=== PATIENT | female | born 1980 | race Caucasian/White ===

== ENCOUNTER 2022-07-03 09:37 | Outpatient (REF) | payer OTHER, SELFPAY ==
--- NOTE | ~2022-07-03 | XR_ITS ---
EXAMINATION: XR CHEST CLINICAL INFORMATION: Shortness of breath COMPARISON: None TECHNIQUE: 2 views of the chest were obtained. FINDINGS: No significant abnormality is noted involving the heart, lungs, mediastinum, bony thorax or soft tissues. XR/XR chest 2V IMPRESSION: Normal examination.
--- NOTE | ~2022-07-03 | XR_ITS ---
EXAMINATION: XR lumbar spine 2-3V CLINICAL INFORMATION: Reason for Exam M54.50 - Low back pain, unspecified COMPARISON: None TECHNIQUE: 3 views of the lumbar spine FINDINGS: 5 nonrib-bearing lumbar-type vertebral bodies. Vertebral body heights are maintained. Alignment is maintained. Disc space heights are maintained. Paravertebral soft tissues are unremarkable. XR/XR lumbar spine 2-3V IMPRESSION: Unremarkable examination.
--- NOTE | ~2022-07-03 | XR_ITS ---
EXAMINATION: XR KNEE, LEFT CLINICAL INFORMATION: Left knee pain COMPARISON: None TECHNIQUE: Four views of the left knee. FINDINGS: Bones and soft tissues are normal. No fracture. Small suprapatellar effusion.. Alignment is anatomic. Joint spaces are well maintained. No abnormal soft tissue calcification. XR/XR knee LT 2V IMPRESSION: Small suprapatellar effusion.
[2022-07-03 11:04] LABS: MANUAL DIFF FLAG NO
[2022-07-03 11:12] LABS: Basophils Absolute Auto 0.1 X10*3/uL (0.0-0.2); Basophils Percent Auto 0.8 % (0-2); Eosinophils Absolute Auto 0.3 X10*3/uL (0.0-0.4); Eosinophils Percent Auto 4.5 % (0-4); Hematocrit 38.5 % (37.0-47.0); Hemoglobin 12.6 g/dl (12.0-16.0); Imm Gran Abs Auto 0.01 X10*3/uL (0.00-0.03); Imm Gran Pct Auto 0.2 % (0.0-0.4); Lymphocytes Absolute Auto 2.6 X10*3/uL (1.2-4.9); Lymphocytes Percent Auto 38.8 % (20-40); Mean Corpuscular HGB Conc 32.7 g/dl (31.0-35.0); Mean Corpuscular Hemoglobin 27.5 pg (27.0-33.0); Mean Corpuscular Volume 83.9 fL (80.0-98.0); Mean Platelet Volume 11.4 fL (9.4-12.3); Monocytes Absolute Auto 0.7 X10*3/uL (0.1-1.2); Neutrophils Percent Auto 44.7 % (45-73); Platelet Count 246 X10*3/uL (160-400); Red Blood Count 4.59 X10*6/uL (4.20-5.50); Red Cell Distribution Width 14.6 % (11.0-16.0); White Blood Count 6.6 X10*3/uL (4.8-10.8)
[2022-07-03 11:31] LABS: Alanine Aminotransferase 40 U/L (0-31); Albumin Level 4.4 g/dL (3.5-5.0); Alkaline Phosphatase 89 U/L (39-117); Anion Gap 13 (12-20); Aspartate Amino Transferase 25 U/L (5-31); Bilirubin Total 0.3 mg/dL (0.0-1.0); Blood Urea Nitrogen 13 mg/dL (9-16); Calcium 9.5 mg/dL (8.4-10.2); Carbon Dioxide 25 mmol/L (22-29); Chloride 105 mmol/L (96-108); Cholesterol 191 mg/dL; Estimated Glomerular Filt Rate > 60; Glucose Fasting 92 mg/dL (60-99); HDL Cholesterol 59 mg/dL; LDL Cholesterol Calculated 119 mg/dl; Potassium 4.3 mmol/L (3.3-5.1); Sodium 139 mmol/L (135-145); Total Protein 6.9 g/dL (6.5-8.0); Triglycerides 68 mg/dL
== END 2022-07-03 09:38 | disposition home or self-care (01) ==
LOC: HO.HMGCX 09:37
PROVIDERS: PCP Internal Medicine; Visit Provider Internal Medicine
DX: E66.09 Other obesity due to excess calories (principal); M25.562 Pain in left knee; M54.50 Low back pain, unspecified; R06.02 Shortness of breath; Z76.89 Persons encountering health services in other specified circumstances
CPT/HCPCS: 36415; 71046; 72100; 73560; 80053; 80061; 84443; 85025

== ENCOUNTER 2022-10-09 07:30 | Outpatient (REF) | payer OTHER, SELFPAY ==
--- NOTE | ~2022-10-09 | XR_ITS ---
EXAMINATION: XR KNEE AP STANDING CLINICAL INFORMATION: Left knee pain COMPARISON: 07/03/2022 TECHNIQUE: AP bilateral standing view of the knees and sunrise view of the left knee where obtained. FINDINGS: Bones and soft tissues are normal. No fracture or joint effusion. Alignment is anatomic. Joint spaces are well maintained. No abnormal soft tissue calcification. XR/XR knee LT 1V IMPRESSION: Normal knees.
--- NOTE | ~2022-10-09 | XR_ITS ---
EXAMINATION: XR KNEE AP STANDING CLINICAL INFORMATION: Left knee pain COMPARISON: 07/03/2022 TECHNIQUE: AP bilateral standing view of the knees and sunrise view of the left knee where obtained. FINDINGS: Bones and soft tissues are normal. No fracture or joint effusion. Alignment is anatomic. Joint spaces are well maintained. No abnormal soft tissue calcification. XR/XR knee standing BI IMPRESSION: Normal knees.
== END 2022-10-09 07:31 | disposition home or self-care (01) ==
LOC: HO.HOSX 07:30
PROVIDERS: Visit Provider Physician Assistant
DX: M25.562 Pain in left knee (principal); M54.16 Radiculopathy, lumbar region
CPT/HCPCS: 73560; 73565; 99202

== ENCOUNTER 2022-11-28 09:31 | Outpatient (AMB) | payer OTHER, SELFPAY ==
[2022-11-28 09:33] VITALS: BP 116/68; BMI 41.6
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
== END 2022-11-28 10:42 | disposition home or self-care (01) ==
LOC: HO.HWS 09:31
PROVIDERS: PCP Internal Medicine; Visit Provider Advanced Practice Midwife
DX: Z01.419 Encounter for gynecological examination (general) (routine) without abnormal findings (principal); E66.09 Other obesity due to excess calories; Z11.3 Encounter for screening for infections with a predominantly sexual mode of transmission; Z86.32 Personal history of gestational diabetes; B37.49 Other urogenital candidiasis; Z90.79 Acquired absence of other genital organ(s); Z12.39 Encounter for other screening for malignant neoplasm of breast
CPT/HCPCS: 99386

== ENCOUNTER 2022-11-28 09:31 | Outpatient (REF) | payer OTHER, SELFPAY ==
[2022-11-29 01:44] LABS: CT PCR NOT DETECTED (Not Detect.); NG PCR NOT DETECTED (Not Detect.)
[2022-11-29 14:53] LABS: BV Int Neg Control Negative (Negative); BV Int Pos Control Positive (Positive)
[2022-12-04 21:14] LABS: HPV mRNA E6/E7 rflx Not Detected (Not Detected)
== END 2022-11-28 09:32 | disposition home or self-care (01) ==
LOC: HO.LNP 09:31
PROVIDERS: PCP Internal Medicine; Visit Provider Advanced Practice Midwife
DX: Z01.419 Encounter for gynecological examination (general) (routine) without abnormal findings (principal); Z11.51 Encounter for screening for human papillomavirus (HPV); B37.49 Other urogenital candidiasis; Z90.79 Acquired absence of other genital organ(s)
CPT/HCPCS: 0353U; 87480; 87510; 87624; 87660; 88142

== ENCOUNTER → 2022-12-26 12:30 | Outpatient (BNV) | payer OTHER, SELFPAY | PROVIDERS: PCP Internal Medicine; Visit Provider Radiology Diagnostic Radiology | DX: Z12.31 Encounter for screening mammogram for malignant neoplasm of breast (principal) | CPT/HCPCS: 77063; 77067 ==

== ENCOUNTER 2022-12-26 12:35 | Outpatient (REF) | payer OTHER, SELFPAY ==
--- NOTE | ~2022-12-26 | MM_ITS ---
EXAMINATION: MM SCREENING DIGITAL BREAST TOMOSYNTHESIS, BILATERAL CLINICAL INFORMATION: Screening. Asymptomatic. Remote history of benign excisional biopsy left breast. COMPARISON: Mammography: None. Baseline exam. TECHNIQUE: Digital breast tomosynthesis is performed in both the craniocaudal and mediolateral oblique views along with computer-aided detection (CAD). Synthesized 2D images are generated from the tomosynthesis. FINDINGS: There are scattered areas of fibroglandular density (ACR BI-RADS breast composition Category b). There are a few punctate skin calcifications in the LEFT breast medially. There is an associated skin lesion in the far medial inferior left breast. There is a focal asymmetric density in the upper outer RIGHT breast, posterior one third, for which diagnostic views recommended. In addition, there is a group of clustered nodules in the far medial inferior RIGHT breast, posterior one third, most likely lymph nodes, which require diagnostic views, with scheduled ultrasound. There are no suspicious findings in the LEFT breast. MM/MM tomosynthesis screening BI IMPRESSION: 1. Focal asymmetric density upper outer right breast, posterior one third, for which 3-D spot compression views are recommended in the CC and MLO projections, as well as a full-field 90 degree 3-D mediolateral view. 2. Grouped oval nodules in the far medial posterior right breast, likely lymph nodes, for which additional 3-D spot compression views are recommended in the CC and MLO projections. 3. There are no suspicious findings in the left breast. ASSESSMENT: BI-RADS BI-RADS 0 - Incomplete: Needs additional Imaging. RECOMMENDATION: 1. Additional views of the right breast. 2. Targeted ultrasound if warranted after review of the additional views. 3. Radiology department staff will contact the patient for additional imaging. Additional Imaging required This examination should not preclude the clinical evaluation of a suspicious palpable abnormality.
== END 2022-12-26 12:36 | disposition home or self-care (01) ==
LOC: HO.MAMMO 12:35
PROVIDERS: PCP Internal Medicine; Visit Provider Advanced Practice Midwife
DX: Z12.31 Encounter for screening mammogram for malignant neoplasm of breast (principal)
CPT/HCPCS: 77063; 77067

== ENCOUNTER 2023-01-17 12:28 | Outpatient (REF) | payer OTHER, SELFPAY ==
--- NOTE | ~2023-01-17 | MM_ITS ---
EXAMINATION: MM DIAGNOSTIC DIGITAL BREAST TOMOSYNTHESIS, RIGHT US BREAST LIMITED, RIGHT MAMMOGRAPHY: CLINICAL INFORMATION: Follow-up one view asymmetry seen superior right MLO view only with no CC correlate on screening exam. Follow-up cluster of circumscribed nodules, possibly lymph nodes, and medial inferior right breast. COMPARISON: Mammography: Baseline screening mammography 12/26/2022. TECHNIQUE: Digital right breast tomosynthesis is performed in right full Field digital 3-D mediolateral view, 3-D full-field digital mediolateral view, and 3-D spot compression right CC and MLO views, along with computer-aided detection (CAD). Synthesized 2D images are generated from the tomosynthesis. FINDINGS: There are scattered areas of fibroglandular density (ACR BI-RADS breast composition Category b). The 1 view asymmetry in the superior right breast at the approximate 10:00 axis appears to possibly persist on the right MLO and ML views, however does not definitively persist on spot compression views. There is no correlate in the CC projections. This will be evaluated with ultrasound. The 3 grouped oval masses in the inferomedial right breast persist on spot compression views, and will be a evaluated with subsequent ultrasound as below. No additional suspicious findings. ULTRASOUND: CLINICAL INFORMATION: Evaluate regions right breast as discussed above. COMPARISON: None TECHNIQUE: Targeted sonographic evaluation was performed using a high frequency linear transducer. Attention was paid to the right upper outer quadrant, and lower inner quadrant. Selected archived documentation. FINDINGS: RIGHT BREAST: There is no ultrasonographic abnormality in the upper outer quadrant of the right breast to correlate with the mammographic focus of concern. In the approximate 4:00 axis of the right breast, 9 cm from the nipple, there are 2 distinct areas of clustered cysts which correlate with the findings on mammography, the largest clustered cyst measuring approximately 5 mm in diameter. These are benign. No further follow-up recommended. MM/MM tomosynthesis added views R IMPRESSION: No findings suspicious for malignancy in the right breast. Benign clusters of cysts seen in the 4:00 axis, 9 cm from the nipple. These are benign. 1 view asymmetry right breast MLO view has no ultrasonographic correlate, and is questionably present on spot compression views. Follow-up in one year recommended when the patient is due for next screening bilateral mammography to include standard views. OVERALL ASSESSMENT: Mammography: BI-RADS 3 - Probably benign finding(s) - 12 month follow-up suggested Ultrasound: BI-RADS 3 - Probably benign finding(s) - 12 month follow-up suggested RECOMMENDATION: 12 month diagnostic follow up This patient's information was entered into a reminder system with a target due date for their next mammogram.
== END 2023-01-17 12:29 | disposition home or self-care (01) ==
LOC: HO.MAMMO 12:28
PROVIDERS: PCP Internal Medicine; Visit Provider Advanced Practice Midwife
DX: N64.89 Other specified disorders of breast (principal)
CPT/HCPCS: 76642; 77061; 77065

== ENCOUNTER → 2023-01-17 13:00 | Outpatient (BNV) | payer OTHER, SELFPAY | PROVIDERS: PCP Internal Medicine; Visit Provider Radiology Diagnostic Radiology | DX: N60.01 Solitary cyst of right breast (principal) | CPT/HCPCS: 76642; 77065 ==

== ENCOUNTER → 2023-08-05 09:31 | Outpatient (BNVA) | payer OTHER, SELFPAY | PROVIDERS: PCP Internal Medicine; Visit Provider Surgery ==

== ENCOUNTER 2023-09-20 09:09 | Outpatient (AMB) | payer OTHER, SELFPAY ==
--- NOTE | 2023-09-20 10:11 | MHC.OFFVISWM ---
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 Allergies Penicillins [PENICILLINS] Allergy (Unknown, Verified 09/20/23 10:11) BLACKED OUT Medication List - Last Reconciled 09/20/23 by Faizan Farfan MD albuterol sulfate 90 mcg/actuation (Ventolin HFA) 1 inh inhalation QID PRN mometasone-formoterol 200-5 mcg/actuation (Dulera) 2 puffs inhalation BID 30 days HPI HPI 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: Details: Start time: 10.07am, End time: 10.44am ?I spent 32 minutes speaking with the patient on the phone plus an additional 5 minutes reviewing and updating records for a total of 37 minutes HPI Comments Details: Previous weight loss efforts: exercise and self diets Wakes up: 6am, Sleeps: 9pm Breakfast: skips Lunch: 12pm (sandwich) Dinner: 5.30pm (chicken, pork chops, burgers, fish) Snacks: 10-11am (sandwich, chips), 7pm (chocolate rolls, chips) Exercise: none Fluids: Coffee one cup/day (sugar and cream), tea: none, soda/juice/ETOH: none PFSH Medical History (Updated 09/20/23 @ 10:17 by Faizan Farfan MD) Knee pain Back pain Asthma GERD (gastroesophageal reflux disease) Morbid obesity History of seizure Surgical History (Updated 09/20/23 @ 10:17 by Faizan Farfan MD) History of tonsillectomy and adenoidectomy Hx of bilateral salpingectomy Family History Maternal Grandfather Brain cancer Lung cancer Maternal Grandmother Lung cancer Social History (Updated 08/05/23 @ 10:01 by Diana Lizarraga CMA) Housing: House Alcohol intake: current Alcohol intake frequency: holidays/special occasions only Patient Tobacco Use Status: Former Tobacco user Quit Date: 1 YR AGO Cigarette Packs Per Day: 1 Cigarettes Per Day: 20 e-Cigarette/Vaping Use: Never Used service: No Current occupational status: unemployed Cognitive needs: No Hearing needs: No Vision needs: No Telehealth Telehealth Telehealth Platform: Telephone Location of provider rendering services: practice address Location of patient: address on file Patient Identification confirmed using: Name, : Yes Telehealth method: voice only Patient verbally consented to treatment: Yes Patient verbally consented to billing insurance company: Yes Patient informed of any privacy concerns related to visit: Yes Minutes spent on Phone/Video with Pt.: 37 Assessment & Plan Assessment & Plan (1) Morbid obesity: Code(s): E66.01 - Morbid (severe) obesity due to excess calories Category: Medical Plan: 1.? Plan for lap sleeve gastrectomy. If diaphragmatic or ventral hernias are present at time of surgery, these will be repaired laparoscopically as well. Risks and complications were discussed in detail including possible conversion to an open procedure, anastomotic leak, bleeding requiring transfusion, small bowel obstruction, , DVT and pulmonary embolism, cardiac, or pulmonary complications, as retirement complications such as anastomotic ulcer, insufficient weight loss and vitamin deficiencies. I emphasized the importance of close follow-up, adherence to instructions and good communication. 2. You will receive a link of our software joe to generate an individualized nutritional and exercise plan specific for you. Please send me a screenshot of the plans you will generate Meal to include lean meat (beef, fish, pork, turkey, chicken), or cymro yogurt, or egg whites, or beans with a salad with olive oil and fruits (berries, pears, apples, kiwi). Avoid salt, breads, potatoes, rice, pasta, desserts. ?3. If you choose shakes, each shake would be drunk slowly, like coffee in a period of 2 hours. ?4. If you choose bars, cut each bar in 4 pieces and eat each piece in 30min ?to make each bar last 2 hours. ?5. I emphasized the importance of measuring accurately the food portion and measure it when serving the food in plate ?6. The meal portions include a specific number of forks of meat and salad. You always eat the meat portion but you can replace up to half of salad/vegetables portion with rice, potatoes or pasta, or a fruit ?if you like. The less you do it the better weight loss will be. ?7. One full-size fork is what it can be scooped on the fork without falling aside and not what can be bit with the fork. Use regular forks like those you find in a typical restaurant. ?8.? Please send me weight measurements as soon as possible and then once a week. Always include your diet and exercise plan. 9. The best choice would be to purchase a stationary bike, elliptical or treadmill at home that can track calories. Let me know if you do so I can give you an exercise plan. ?10.?It is important of avoiding and for at least 18 months postoperatively and has been discussed at the infosession. ?11. Goal is to lose at least 1.5-2lbs per week ?12. Goal to lose 10% of your weight before surgery, which is about 26lbs. Ultimate weight goal: 238lbs before surgery 13. Please follow the diet plan exactly without any change. If you don't like something about the plan or you feel hungry you need to communicate with me so I can help you revise the plan. You should not change the plan yourself. Orders: Orders Hemoglobin A1c Today E66.01 - Morbid (severe) obesity due to excess calories, J45.909 - Unspecified asthma, uncomplicated, K21.9 - Gastro-esophageal reflux disease without esophagitis Complete Blood Count Auto Diff Today E66.01 - Morbid (severe) obesity due to excess calories, J45.909 - Unspecified asthma, uncomplicated, K21.9 - Gastro-esophageal reflux disease without esophagitis Lipid Panel Today E66.01 - Morbid (severe) obesity due to excess calories, J45.909 - Unspecified asthma, uncomplicated, K21.9 - Gastro-esophageal reflux disease without esophagitis IRON PROFILE Today E66.01 - Morbid (severe) obesity due to excess calories, J45.909 - Unspecified asthma, uncomplicated, K21.9 - Gastro-esophageal reflux disease without esophagitis Zinc Today E66.01 - Morbid (severe) obesity due to excess calories, J45.909 - Unspecified asthma, uncomplicated, K21.9 - Gastro-esophageal reflux disease without esophagitis Vitamin B1 Today E66.01 - Morbid (severe) obesity due to excess calories, J45.909 - Unspecified asthma, uncomplicated, K21.9 - Gastro-esophageal reflux disease without esophagitis Vitamin A Today E66.01 - Morbid (severe) obesity due to excess calories, J45.909 - Unspecified asthma, uncomplicated, K21.9 - Gastro-esophageal reflux disease without esophagitis US abdomen comp w elastography Today E66.01 - Morbid (severe) obesity due to excess calories, J45.909 - Unspecified asthma, uncomplicated, K21.9 - Gastro-esophageal reflux disease without esophagitis FL upper GI w air Today E66.01 - Morbid (severe) obesity due to excess calories, J45.909 - Unspecified asthma, uncomplicated, K21.9 - Gastro-esophageal reflux disease without esophagitis Insulin Today E66.01 - Morbid (severe) obesity due to excess calories, J45.909 - Unspecified asthma, uncomplicated, K21.9 - Gastro-esophageal reflux disease without esophagitis H Pylori Breath Test Today E66.01 - Morbid (severe) obesity due to excess calories, J45.909 - Unspecified asthma, uncomplicated, K21.9 - Gastro-esophageal reflux disease without esophagitis Comprehensive Met. Panel Today E66.01 - Morbid (severe) obesity due to excess calories, J45.909 - Unspecified asthma, uncomplicated, K21.9 - Gastro-esophageal reflux disease without esophagitis Vitamin B12 and Folate Today E66.01 - Morbid (severe) obesity due to excess calories, J45.909 - Unspecified asthma, uncomplicated, K21.9 - Gastro-esophageal reflux disease without esophagitis C Reactive Protein Today E66.01 - Morbid (severe) obesity due to excess calories, J45.909 - Unspecified asthma, uncomplicated, K21.9 - Gastro-esophageal reflux disease without esophagitis TSH reflex Free T4 Today E66.01 - Morbid (severe) obesity due to excess calories, J45.909 - Unspecified asthma, uncomplicated, K21.9 - Gastro-esophageal reflux disease without esophagitis Ferritin Today E66.01 - Morbid (severe) obesity due to excess calories, J45.909 - Unspecified asthma, uncomplicated, K21.9 - Gastro-esophageal reflux disease without esophagitis Vitamin D 25-OH Total Today E66.01 - Morbid (severe) obesity due to excess calories, J45.909 - Unspecified asthma, uncomplicated, K21.9 - Gastro-esophageal reflux disease without esophagitis XR chest 2V Today E66.01 - Morbid (severe) obesity due to excess calories, J45.909 - Unspecified asthma, uncomplicated, K21.9 - Gastro-esophageal reflux disease without esophagitis ECG 12 lead EKG Today E66.01 - Morbid (severe) obesity due to excess calories, J45.909 - Unspecified asthma, uncomplicated, K21.9 - Gastro-esophageal reflux disease without esophagitis Referrals Behavioral Health Referral E66.01 - Morbid (severe) obesity due to excess calories, J45.909 - Unspecified asthma, uncomplicated, K21.9 - Gastro-esophageal reflux disease without esophagitis Nutrition/Dietitian Referral E66.01 - Morbid (severe) obesity due to excess calories, J45.909 - Unspecified asthma, uncomplicated, K21.9 - Gastro-esophageal reflux disease without esophagitis
[2023-09-20 10:22] VITALS: BMI 43.9
== END 2023-09-20 10:45 | disposition home or self-care (01) ==
LOC: HO.HBS 09:09
PROVIDERS: PCP Internal Medicine; Visit Provider Surgery
DX: E66.01 Morbid (severe) obesity due to excess calories (principal); Z68.41 Body mass index [BMI] 40.0-44.9, adult
CPT/HCPCS: 99203

== ENCOUNTER → 2023-09-20 09:09 | Outpatient (BNVA) | payer OTHER, SELFPAY | PROVIDERS: PCP Internal Medicine; Visit Provider Surgery ==

== ENCOUNTER 2023-09-24 09:43 | Outpatient (REF) | payer OTHER, SELFPAY ==
--- NOTE | ~2023-09-24 | XR_ITS ---
EXAMINATION: XR CHEST CLINICAL INFORMATION: Morbid (severe) obesity due to excess calories, preop. COMPARISON: 07/03/2022 TECHNIQUE: 2 views of the chest were obtained. FINDINGS: There is no gross pneumothorax. Heart size is normal. Increased mild streaky opacities at the left lung base may represent atelectasis, although an inflammatory/infectious process should also be considered in the appropriate clinical setting. No gross pleural effusion. Mild dextroscoliosis of the thoracolumbar spine. XR/XR chest 2V IMPRESSION: Increased mild streaky opacities at the left lung base may represent atelectasis, although an inflammatory/infectious process should also be considered in the appropriate clinical setting.
--- NOTE | 2023-09-24 09:54 | ECG_ITS ---
Test Reason : OBESITY Blood Pressure : / mmHG Vent. Rate : 058 BPM Atrial Rate : 058 BPM P-R Int : 158 ms QRS Dur : 082 ms QT Int : 432 ms P-R-T Axes : 021 047 001 degrees QTc Int : 424 ms Sinus bradycardia Otherwise normal ECG No previous ECGs available Referred By: Faizan Farfan Electronically Signed By:AGGIE HANNON MD
[2023-09-24 10:18] LABS: MANUAL DIFF FLAG NO
[2023-09-24 10:50] LABS: Basophils Percent Auto 0.6 % (0-2); Eosinophils Absolute Auto 0.1 X10*3/uL (0.0-0.4); Eosinophils Percent Auto 1.3 % (0-4); Hematocrit 35.8 % (37.0-47.0); Hemoglobin 11.5 g/dl (12.0-16.0); Imm Gran Abs Auto 0.01 X10*3/uL (0.00-0.03); Imm Gran Pct Auto 0.2 % (0.0-0.4); Lymphocytes Absolute Auto 1.4 X10*3/uL (1.2-4.9); Lymphocytes Percent Auto 30.4 % (20-40); Mean Corpuscular HGB Conc 32.1 g/dl (31.0-35.0); Mean Corpuscular Hemoglobin 26.6 pg (27.0-33.0); Mean Corpuscular Volume 82.7 fL (80.0-98.0); Mean Platelet Volume 12.4 fL (9.4-12.3); Monocytes Absolute Auto 0.5 X10*3/uL (0.1-1.2); Monocytes Percent Auto 11.4 % (2-11); Neutrophils Absolute Auto 2.7 x10*3/uL (2.0-8.3); Neutrophils Percent Auto 56.1 % (45-73); Platelet Count 201 X10*3/uL (160-400); Red Blood Count 4.33 X10*6/uL (4.20-5.50); Red Cell Distribution Width 14.2 % (11.0-16.0); White Blood Count 4.7 X10*3/uL (4.8-10.8)
[2023-09-24 10:58] LABS: Estimated Average Glucose 111 mg/dL; Hemoglobin A1c % 5.5 % (<6.0)
[2023-09-24 11:56] LABS: Alanine Aminotransferase 37 U/L (0-31); Albumin Level 4.3 g/dL (3.5-5.0); Alkaline Phosphatase 79 U/L (39-117); Anion Gap 15 (12-20); Aspartate Amino Transferase 32 U/L (5-31); Bilirubin Total 0.5 mg/dL (0.0-1.0); Blood Urea Nitrogen 13 mg/dL (9-16); C Reactive Protein 0.52 mg/dL (< or = 0.50); Calcium 9.7 mg/dL (8.4-10.2); Carbon Dioxide 23 mmol/L (22-29); Chloride 109 mmol/L (96-108); Cholesterol 153 mg/dL (<200); Estimated Glomerular Filt Rate > 60; Glucose Random 88 mg/dL (60-115); HDL Cholesterol 49 mg/dL (>40); Iron 25 mcg/dL (30-160); LDL Cholesterol Calculated 91 mg/dL (<100); Percent Iron Saturation 7 % (15-50); Sodium 143 mmol/L (135-145); Total Iron Binding Capacity 351 mcg/dL (228-428); Total Protein 7.2 g/dL (6.5-8.0); Triglycerides 65 mg/dL (<150); Unsaturated Iron Binding 326 ug/dL
[2023-09-24 12:00] LABS: Folate 10.5 ng/mL (> or = 4.0); Vitamin B12 729 pg/mL (200-900)
[2023-09-24 12:02] LABS: Ferritin 7 ng/mL (10-250); Insulin 6 uU/mL (2-29); TSH reflex Free T4 0.83 uIU/mL (0.32-4.0); Vitamin D 25-OH Total 16.4 ng/mL (>30)
[2023-09-26 23:48] LABS: Zinc 79 mcg/dL (60-130)
[2023-09-28 00:58] LABS: Vitamin A 26 mcg/dL (38-98)
[2023-09-29 15:04] LABS: Vitamin B1 6 nmol/L (8-30)
== END 2023-09-24 09:44 | disposition home or self-care (01) ==
LOC: HO.XRAY 09:43
PROVIDERS: PCP Internal Medicine; Visit Provider Surgery
DX: E66.01 Morbid (severe) obesity due to excess calories (principal); K21.9 Gastro-esophageal reflux disease without esophagitis; J45.909 Unspecified asthma, uncomplicated
CPT/HCPCS: 36415; 71046; 80053; 80061; 82306; 82607; 82728; 82746; 83036; 83525; 83540; 84425; 84443; 84590; 84630; 85025; 86140; 93005

== ENCOUNTER → 2023-09-24 09:54 | Outpatient (BNV) | payer OTHER, SELFPAY | PROVIDERS: PCP Internal Medicine; Visit Provider Internal Medicine Cardiovascular Disease | DX: R00.1 Bradycardia, unspecified (principal) | CPT/HCPCS: 93010 ==

== ENCOUNTER 2023-10-03 08:38 | Outpatient (REF) | payer OTHER, SELFPAY ==
--- NOTE | ~2023-10-03 | US_ITS ---
EXAMINATION: US COMPLETE ABDOMEN WITH LIVER ELASTOGRAPHY CLINICAL INFORMATION: Morbid obesity. COMPARISON: None available. TECHNIQUE: Real-time imaging of the abdominal viscera. Noninvasive ultrasound liver fibrosis assessment is performed using Raphael ElastPQ point quantification shear wave elastography (2D-SWE) with a C5-2 MHz transducer. Multiple elastography samples are obtained. FINDINGS: PANCREAS: Normal. The visualized pancreatic head and body are normal in appearance. The remainder of the pancreas is obscured from visualization by the overlying bowel gas. ABDOMINAL AORTA: The proximal, middle, and distal aortic segments are normal in caliber. INFERIOR VENA CAVA: Visualized portions are normal. LIVER: The liver demonstrates normal size, contour and very mildly increased echogenicity. No focal lesion or intrahepatic biliary duct dilatation. The right lobe measures 15.3 cm in length. The left lobe measures 12.9 cm in length. Portal flow is towards the liver (hepatopetal). Shear wave liver elastography median stiffness is 0.97 m/s (reference: normal median stiffness is 1.3 m/s or less). IQR/median stiffness to assess sampling precision is 0.31 (reference: good quality data set is IQR/median stiffness of 0.15 or less). GALLBLADDER: Normal. The gallbladder is physiologically distended without evidence of stones, sludge, polyps, wall thickening or pericholecystic fluid. COMMON BILE DUCT: Normal in caliber measuring 0.3 cm in diameter. RIGHT KIDNEY: Normal. No hydronephrosis. No renal calculi or focal parenchymal lesions. The kidney measures 12.5 cm in maximum dimension. LEFT KIDNEY: Normal. No hydronephrosis. No renal calculi or focal parenchymal lesions. The kidney measures 11.8 cm in maximum dimension. SPLEEN: Normal. The spleen measures 12.5 cm in maximum dimension. FREE FLUID: None. US/US abdomen comp w elastography IMPRESSION: 1. There is very mild generalized increase in hepatic echotexture, consistent with fatty infiltration or hepatocellular disease. Please correlate clinically. No focal hepatic mass or intrahepatic biliary dilatation is seen. 2. Liver elastography: Although measurements suggest a high probability of normal liver stiffness, there is statistical variability of the sampling which decreases accuracy. REFERENCE: Society of Radiologists in Ultrasound Liver Stiffness Thresholds (2020): LIVER STIFFNESS THRESHOLDS: *Liver Stiffness equal or less than 1.3 m/s: High probability of being normal. *Liver Stiffness less than 1.7 m/s: In the absence of other known clinical signs, rules out compensated advanced chronic liver disease. *Liver Stiffness 1.7-2.1 m/s: Suggestive of compensated advanced chronic liver disease but need further test for confirmation. *Liver Stiffness over 2.1 m/s: Rules in compensated advanced chronic liver disease. *Liver Stiffness over 2.4 m/s: Suggestive of clinically significant portal hypertension. QUALITY OF DATA SET: *IQR/Median value equal or less than 0.15 implies a quality data set. *IQR/Median value over 0.15 implies a poor quality data set. SIGNIFICANT CHANGE FROM PRIOR EXAM: Significant change if liver stiffness measurement is 10% or greater from prior exam. OTHER CONSIDERATIONS: The stage of liver fibrosis may be overestimated in the setting of acute hepatitis, liver inflammation, elevated liver function tests, hepatic vascular congestion, obstructive cholestasis, non-fasting state, and infiltrative diseases such as amyloidosis and lymphoma. In some patients with NAFLD, the liver stiffness thresholds for compensated advanced chronic liver disease may be lower. In causes other than viral hepatitis and NAFLD, liver stiffness thresholds are not well established.
== END 2023-10-03 08:39 | disposition home or self-care (01) ==
LOC: HO.US 08:38
PROVIDERS: PCP Internal Medicine; Visit Provider Surgery
DX: E66.01 Morbid (severe) obesity due to excess calories (principal); K21.9 Gastro-esophageal reflux disease without esophagitis; J45.909 Unspecified asthma, uncomplicated
CPT/HCPCS: 76700; 76981

== ENCOUNTER 2023-10-08 09:37 | Outpatient (AMB) | payer OTHER, SELFPAY ==
--- NOTE | 2023-10-08 09:21 | MHC.WMTHER ---
Intake Intake Visit Reasons: (TV) BH Intake Allergies Penicillins [PENICILLINS] Allergy (Unknown, Verified 09/20/23 10:11) BLACKED OUT [facility] Medical History (Updated 10/08/23 @ 09:45 by Gina Cao) Knee pain Back pain Asthma GERD (gastroesophageal reflux disease) Morbid obesity History of seizure Surgical History (Updated 09/20/23 @ 10:17 by Faizan Farfan MD) History of tonsillectomy and adenoidectomy Hx of bilateral salpingectomy Family History Maternal Grandfather Brain cancer Lung cancer Maternal Grandmother Lung cancer Social History (Updated 08/05/23 @ 10:01 by Diana Lizarraga [facility]) Housing: House Alcohol intake: current Alcohol intake frequency: holidays/special occasions only Patient Tobacco Use Status: Former Tobacco user Cigarette Packs Per Day: 1 Cigarettes Per Day: 20 e-Cigarette/Vaping Use: Never Used service: No Current occupational status: unemployed Cognitive needs: No Hearing needs: No Vision needs: No Behavioral Health Assessment Weight Management Therapy Therapy Notes Details Patient is looking to have weight loss surgery to help improve her health and quality of life. She reported a history of depression. Patient was in therapy in the past but not currently. Also previous hospital admission to [facility] in her 20's due to someone claiming she was a danger to herself. She denied a history of any drug or alcohol abuse. Presenting Concerns Referral Source provider Reason for referral weight loss surgery evaluation Precipitating Event obesity Living Situation Current Living Situation Rent At risk of losing current housing? No Satisfied with current living situation? Yes Comments Pt lives with her four sons ages 17, 16, 11, and 4 years old Food/Weight/Diet Expectations of change weight loss and maintenance History/Relationship with food Pt stated that she will stop eating when stressed, under eats more often than over eats. History/Relationship with weight Pt stated that she is at her heaviest weight. Her baseline is usually 165lbs. She has had 7 children, Her last she had many issues with the baby and then last year she quit smoking which caused more weight gain. Social History Family history and relationship Pt has seven children. 4 of them live with her. Her two adult children don't speak to her and her 13 year old daughter lives with her grandmother and wants nothing to do with her. 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 Cultural/Ethnic information Legal Involvement and History Current or historical involvement with the legal system? small claims court, also some guardianship issues with two of her children. Education Preferred learning style Auditory, Verbal, Written, Learn by doing and Visual Currently enrolled in educational program? No Interested in further educational program? No Employment Employment Status Unemployed Wants help to find employment? No Financial Situation Describe current financial situation Often struggles with finance Financial assistance? Food [place] and SSDI Service Service? No Mental Health and Addiction Treatment Current/Past substance abuse? No Current/Past addictive behavior concerns? No Medical and Physical Health Summary Physical exam in the last year? No Pain Screening Current pain? No Pain in the last few months? No Medications Is the patient compliant with medications? Yes Does the patient have [place] Guardian in place? Not applicable Does the patient use complimentary health approaches? No Trauma/Abuse History History of trauma? Yes Questionnaires PHQ-9 Over the last 2 weeks, how often have you been bothered by any of the following problems? 1. Little interest or pleasure in doing things: not at all 2. Feeling down, depressed, or hopeless: not at all 3. Trouble falling or staying asleep, or sleeping too much: more than half the days 4. Feeling tired or having little energy: more than half the days 5. Poor appetite or overeating: several days 6. Feeling bad about yourself - or that you are a failure or have let yourself or your family down: not at all 7. Trouble concentrating on things, such as reading the newspaper or watching television: not at all 8. Moving or speaking so slowly that other people could have noticed. Or the opposite - being so fidgety or restless that you have been moving around a lot more than usual: not at all 9. Thoughts that you would be better off or of hurting yourself in some way: not at all Total score: 5 Source: Developed by Drs. Al Neil, Jane Engle, Aj Miles and colleagues, with an educational andreea from [employer]. Binge Eating Scale Group 1 A. I don't feel self-conscious about my wt. or body size when I'm with others. B. I feel concerned about how I look to others, but it normally does not make me fell disappointed with myself C. I do get self-conscious about my appearance and wt. which makes me feel disappointed in myself. D. I feel very self-conscious about my wt. and frequently I feel intense shame and disgust for myself. I try to avoid social contacts because of my self-consciousness. Response Group 1: A Group 2 A. I don't have any difficulty eating slowly in the proper manner. B. Although I seem to gobble down foods, I don't end up feeling stuffed because of eating to much. C. At times, I tend to eat quickly and then, I feel uncomfortably full afterwards. D. I have the habit of bolting down my food, without really chewing it. When this happens I usually feel uncomfortably stuffed because I've eaten to much. Response Group 2: A Group 3 A. I feel capable to control my eating urges when I want to. B. I feel like I have failed to control my eating more than the average person. C. I feel utterly helpless when it comes to feeling in control of my eating urges. D. Because I feel so helpless about controlling my eating I have become very desperate about trying to get control. Response Group 3: C Group 4 A. I don't have the habit of eating when I'm bored. B. I sometimes eat when I'm bored, but often I'm able to get busy and get my mind off food. C. I have a regular habit of eating when I'm bored, but occasionally, I can use some other activity to get my mind off eating. D. I have a strong habit of eating when I'm bored. Nothing seems to help me breath the habit. Response Group 4: B Group 5 A. I'm usually physically hungry when I eat something. B. Occasionally, I eat something on impulse even though I really am not hungry. C. I have the regular habit of eating foods, that I might not really enjoy, to satisfy a hungry feeling even though physically, I don't need the food. D. Although I'm not physically hungry, I get a hungry feeling in my mouth that only seems to be satisfied when I eat a food, like sandwich, that fills my mouth. Sometimes, when I eat the food to satisfy my mouth hunger, I then spit the food out so I won't gain weight. Response Group 5: C Group 6 A. I don't feel any guilt or self-hate after I overeat. B. After I overeat, occasionally I feel guilt or self-hate. C. Almost all the time I experience strong guilt or self-hate after I overeat. Response Group 6: B Group 7 A. I don't lose total control of my eating when dieting even after periods when I overeat. B. Sometimes when I eat a forbidden food on a diet, I feel like I blew it and eat even more. C. Frequently, I have the habit of saying to myself, I've blown it now, why not go all the way, when I overeat on a diet. When that happens I eat more. D. I have a regular habit of starting a strict diets for myself but I break the diets by going on an eating binge. My life seems to be either a feast or famine. Response Group 7: A Group 8 A. I rarely eat so much food that I feel uncomfortably stuffed afterwards. B. Usually about once a month, I each such a quantity of food, I end up feeling very stuffed. C. I have regular periods during the month when I eat large amounts of food, either at mealtime or at snacks. D. I eat so much food that I regularly feel quite uncomfortable after eating and sometimes a bit nauseous. Response Group 8: A Group 9 A. My level of calorie intake does not go up very high or go down very low on a regular basis. B. Sometimes after I overeat, I will try to reduce my caloric intake to almost nothing to compensate for the excess calories I've eaten. C. I have a regular habit of overeating during the night. It seems that my routine is not to be hungry in the morning but overeat in the evening. D. In my adult years, I have had week-long periods where I practically starve myself. This follows periods when I overeat. It seems I live a life of either feast or famine. Response Group 9: A Group 10 A. I usually am able to stop eating when I want to. I know when enough is enough. B. Every so often, I experience a compulsion to eat which I can't seem to control. C. Frequently, I experience strong urges to eat which I seem unable to control, but at other times I can control my eating urges. D. I feel incapable of controlling urges to eat. I have a fear of not being able to stop eating voluntarily. Response Group 10: A Group 11 A. I don't have any problem stopping eating when I feel full. B. I usually can stop eating when I feel full but occasionally overeat leaving me feeling uncomfortably stuffed. C. I have a problem stopping eating once I start and usually I feel uncomfortably stuffed after I eat a meal. D. Because I have a problem not being able to stop eating when I want, I sometimes have to induce vomiting to relieve my stuffed feeling. Response Group 11: B Group 12 A. I seem to eat just as much when I'm with others, Family social gatherings as when I'm by myself. B. Sometimes, when I'm with other persons, I don't eat as much as I want to eat because I'm self-conscious about my eating. C. Frequently, I eat only a small amount of food when others are present, because I'm very embarrassed about my eating. D. I feel so ashamed about overeating that I pick times to overeat when I know no one will see me. I feel like a closet eater. Response Group 12: C Group 13 A. I eat three meals a day with only an occasional between meal snack. B. I eat 3 meals a day, but I also normally snack between meals. C. When I am snacking heavily, I get in the habit of skipping regular meals. D. There are regular periods when I seem to be continually eating, with no planned meals. Response Group 13: A Group 14 A. I don't think much about trying to control unwanted eating urges. B. At least some of the time, I feel my thoughts are pre-occupied with trying to control my eating urges. C. I feel that frequently I spend much time thinking about how much I ate or about trying not to eat anymore. D. It seems to me that most of my waking hours are pre-occupied by thoughts about eating or not eating. I feel like I'm constantly struggling not to eat. Response Group 14: C Group 15 A. I don't think about food a great deal. B. I have strong craving for food but they last only for brief periods of time. C. I have days when I can't seem to think about anything else but food. D. Most of my days seem to be pre-occupied with thoughts about food. I feel like I live to eat. Response Group 15: C Group 16 A. I usually know whether or not I'm physically hungry. I take the right portion of food to satisfy me. B. Occasionally, I feel uncertain about knowing whether or not I'm physically hungry. A these times it's hard to know how much food I should take to satisfy me. C. Even though I might know how many calories I should eat, I don't have any idea what is a normal amount of food for me. Response Group 16: C Binge Eating Score: 15 Score less than 17 Minimal Risk Score between 18-26 Moderate Risk Score between 27-46 High Risk Assessment & Plan Assessment & Plan (1) Dysthymia: Code(s): F34.1 - Dysthymic disorder (2) Morbid obesity: Code(s): E66.01 - Morbid (severe) obesity due to excess calories Plan Patient has no supports per her report, struggling a bit and no mental health providers. She seems emotionally stable with some family stressors. She will be seen again. Coding Level of Care Code Tele y Diag Elizabeth ([id number]) Diagnoses Dysthymia F34.1 Morbid obesity E66.01 Time Spent (min) 30
== END 2023-10-08 09:49 | disposition home or self-care (01) ==
LOC: HO.HBST 09:38
PROVIDERS: PCP Internal Medicine; Visit Provider Counselor Mental Health
DX: F34.1 Dysthymic disorder (principal); E66.01 Morbid (severe) obesity due to excess calories
CPT/HCPCS: 90791

== ENCOUNTER → 2023-10-08 09:37 | Outpatient (BNVA) | payer OTHER, SELFPAY | PROVIDERS: PCP Internal Medicine; Visit Provider Counselor Mental Health ==

== ENCOUNTER 2023-10-16 10:00 | Outpatient (AMB) | payer OTHER, SELFPAY ==
--- NOTE | 2023-10-16 10:16 | A.OFFWM_ITS ---
Intake Intake Visit Reasons: (TV) BH F/U Allergies Penicillins [PENICILLINS] Allergy (Unknown, Verified 09/20/23 10:11) BLACKED OUT [facility] Medical History (Updated 10/08/23 @ 09:45 by Gina Cao) Knee pain Back pain Asthma GERD (gastroesophageal reflux disease) Morbid obesity History of seizure Surgical History (Updated 09/20/23 @ 10:17 by Faizan Farfan MD) History of tonsillectomy and adenoidectomy Hx of bilateral salpingectomy Family History Maternal Grandfather Brain cancer Lung cancer Maternal Grandmother Lung cancer Social History (Updated 08/05/23 @ 10:01 by Diana Lizarraga [facility]) Housing: House Alcohol intake: current Alcohol intake frequency: holidays/special occasions only Patient Tobacco Use Status: Former Tobacco user Cigarette Packs Per Day: 1 Cigarettes Per Day: 20 e-Cigarette/Vaping Use: Never Used service: No Current occupational status: unemployed Cognitive needs: No Hearing needs: No Vision needs: No Behavioral Health Assessment Weight Management Therapy Therapy Notes Details Patient is looking to have weight loss surgery to help improve her health and quality of life. She reported a history of depression. Patient was in therapy in the past but not currently. Also previous hospital admission to [facility] in her 20's due to someone claiming she was a danger to herself. She denied a history of any drug or alcohol abuse. Presenting Concerns Referral Source provider Reason for referral weight loss surgery evaluation Precipitating Event obesity Living Situation Current Living Situation Rent At risk of losing current housing? No Satisfied with current living situation? Yes Comments Pt lives with her four sons ages 17, 16, 11, and 4 years old Food/Weight/Diet Expectations of change weight loss and maintenance History/Relationship with food Pt stated that she will stop eating when stressed, under eats more often than over eats. History/Relationship with weight Pt stated that she is at her heaviest weight. Her baseline is usually 165lbs. She has had 7 children, Her last she had many issues with the baby and then last year she quit smoking which caused more weight gain. Social History Family history and relationship Pt has seven children. 4 of them live with her. Her two adult children don't speak to her and her 13 year old daughter lives with her grandmother and wants nothing to do with her. 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 Cultural/Ethnic information Legal Involvement and History Current or historical involvement with the legal system? small claims court, also some guardianship issues with two of her children. Education Preferred learning style Auditory, Verbal, Written, Learn by doing and Visual Currently enrolled in educational program? No Interested in further educational program? No Employment Employment Status Unemployed Wants help to find employment? No Financial Situation Describe current financial situation Often struggles with finance Financial assistance? Food [place] and SSDI Service Service? No Mental Health and Addiction Treatment Current/Past substance abuse? No Current/Past addictive behavior concerns? No Medical and Physical Health Summary Physical exam in the last year? No Pain Screening Current pain? No Pain in the last few months? No Medications Is the patient compliant with medications? Yes Does the patient have [place] Guardian in place? Not applicable Does the patient use complimentary health approaches? No Trauma/Abuse History History of trauma? Yes Assessment & Plan Assessment & Plan (1) Dysthymia: Code(s): F34.1 - Dysthymic disorder (2) Morbid obesity: Code(s): E66.01 - Morbid (severe) obesity due to excess calories Plan Patient has minimal supports and barriers to be being able to exercise. Also not hungry often so she just drinks water. She was agitated and frustrated during call today stating that she is doing everything she can but is not gong to push herself too much so to not get hurt. She was strongly encouraged to utilize program supports but stated that she has too much going on. She is cleared from behavioral health standpoint. Telehealth Telehealth Telehealth Platform: Telephone Location of provider rendering services: other Location of patient: other Patient Identification confirmed using: Name, : Yes Telehealth method: voice only Minutes spent on Phone/Video with Pt.: 20 Coding Level of Care Code Tele Psytx 30 mins ([id number]) Diagnoses Dysthymia F34.1 Morbid obesity E66.01 Time Spent (min) 20
== END 2023-10-16 10:31 | disposition home or self-care (01) ==
LOC: HO.HBST 10:14
PROVIDERS: PCP Internal Medicine; Visit Provider Counselor Mental Health
DX: F34.1 Dysthymic disorder (principal); E66.01 Morbid (severe) obesity due to excess calories
CPT/HCPCS: 90832

== ENCOUNTER → 2023-10-16 10:00 | Outpatient (BNVA) | payer OTHER, SELFPAY | PROVIDERS: PCP Internal Medicine; Visit Provider Counselor Mental Health ==

== ENCOUNTER 2023-10-23 10:27 | Day surgery (SDC) | payer OTHER, SELFPAY ==
[2023-10-18 16:02] VITALS: BMI 43.9
--- NOTE | 2023-10-21 12:33 | HO.ANESPROP2 ---
Documented by User: Isis Erazo NP 10/21/23 12:34 HPI - Anesthesia Eval Consult details Narrative: 43yo F for Upper Endoscopy PMFSH Active Problems Active Problems: All Active Problems Dysthymia (Acute) Vitamin B1 deficiency (Acute) Vitamin A deficiency (Acute) Vitamin D deficiency (Acute) Iron deficiency (Acute) Knee pain (Acute) Back pain (Acute) Asthma (Acute) GERD (gastroesophageal reflux disease) (Acute) Morbid obesity (Acute) Breast cancer screening (Acute) Amry infection of genital region (Acute) Hx of bilateral salpingectomy (Acute) Hx of gestational diabetes mellitus, not currently (Acute) Screen for sexually transmitted diseases (Acute) Cervical cancer screening (Acute) Lumbar radiculopathy (Acute) LFT elevation (Acute) Encounter for general adult medical examination with abnormal findings (Acute) Skin growth (Acute) Encounter for routine gynecological examination (Acute) Shortness of breath (Acute) Obesity due to excess calories (Acute) Encounter to establish care with new doctor (Acute) Lumbar pain (Acute) Knee pain, left (Acute) Upper respiratory tract infection (Acute) Past Medical History Medical History Knee pain Back pain Asthma GERD (gastroesophageal reflux disease) Morbid obesity History of seizure Family History Family History Maternal Grandfather Brain cancer Lung cancer Maternal Grandmother Lung cancer Surgical History Surgical History History of tonsillectomy and adenoidectomy Hx of bilateral salpingectomy Social History Social History Housing: House Alcohol intake: current Alcohol intake frequency: holidays/special occasions only Patient Tobacco Use Status: Former Tobacco user Cigarette Packs Per Day: 1 Cigarettes Per Day: 20 e-Cigarette/Vaping Use: Never Used Use of substances other than those prescribed or required for medical reasons: No Are you DNR?: No Advance Directives: No Advance Directives Information Provided: Yes service: No Current occupational status: unemployed Cognitive needs: No Hearing needs: No Vision needs: No Meds Allergies Allergy/AdvReac Type Severity Reaction Status Date / Time Penicillins [PENICILLINS] Allergy Unknown BLACKED OUT Verified 09/20/23 10:11 Exam Height,Weight and Vital Signs: Height 5 ft 5 in Weight 119.805 kg Assessment and Plan Assessment Anesthesia Assessment: Chart Reviewed Documented by User: Lazara Ndiaye MD 10/23/23 12:34 PMFSH Active Problems Active Problems: All Active Problems Dysthymia (Acute) Vitamin B1 deficiency (Acute) Vitamin A deficiency (Acute) Vitamin D deficiency (Acute) Iron deficiency (Acute) Knee pain (Acute) Back pain (Acute) Asthma (Acute) GERD (gastroesophageal reflux disease) (Acute) Morbid obesity (Acute) Breast cancer screening (Acute) Mary infection of genital region (Acute) Hx of bilateral salpingectomy (Acute) Hx of gestational diabetes mellitus, not currently (Acute) Screen for sexually transmitted diseases (Acute) Cervical cancer screening (Acute) Lumbar radiculopathy (Acute) LFT elevation (Acute) Encounter for general adult medical examination with abnormal findings (Acute) Skin growth (Acute) Encounter for routine gynecological examination (Acute) Shortness of breath (Acute) Obesity due to excess calories (Acute) Encounter to establish care with new doctor (Acute) Lumbar pain (Acute) Knee pain, left (Acute) Upper respiratory tract infection (Acute) Denies FAREED Past Medical History Medical History Knee pain Back pain Asthma GERD (gastroesophageal reflux disease) Morbid obesity History of seizure Family History Family History Maternal Grandfather Brain cancer Lung cancer Maternal Grandmother Lung cancer Family history of problems with anesthesia: Yes (Slow awakening in son) Surgical History Surgical History History of tonsillectomy and adenoidectomy Hx of bilateral salpingectomy History of Problems with Anesthesia: No Social History Social History Housing: House Alcohol intake: current Alcohol intake frequency: holidays/special occasions only Patient Tobacco Use Status: Former Tobacco user Cigarette Packs Per Day: 1 Cigarettes Per Day: 20 e-Cigarette/Vaping Use: Never Used Use of substances other than those prescribed or required for medical reasons: No Are you DNR?: No Advance Directives: No Advance Directives Information Provided: Yes service: No Current occupational status: unemployed Cognitive needs: No Hearing needs: No Vision needs: No Meds Allergies Allergy/AdvReac Type Severity Reaction Status Date / Time Penicillins [PENICILLINS] Allergy Unknown BLACKED OUT Verified 09/20/23 10:11 Exam Height,Weight and Vital Signs: Height 5 ft 5 in Weight 119.805 kg Vital Signs Temp Pulse Resp BP Pulse Ox O2 Del Method 10/23/23 11:50 97.0 F 66 16 129/68 96 Room Air Airway Mallampati Class: II TM Dist: >3cm Neck ROM: Full Denture: Upper Loose/Missing/Broken Teeth: Yes (Full denture top. Only few teeth present botto. Denies broken or loose teeth) Heart: RRR Lungs: CTAB Assessment and Plan Assessment Anesthesia Assessment: Anesthesia Plan Discussed and Chart Reviewed Final Anesthetic Review Family History of Problems with Anesthesia: Yes (Slow awakening in son) History of Problems with Anesthesia: No NPO: Yes ASA Class: III Final Preanesthetic Review: No Changes in Pt Med Stat, Meds/Allgs Chart Reviewed, Consent Obtained/Reviewed and Anes Risks/Benef Reviewed Patient Risk: Intermediate Procedure Risk: Low Assessment/Block/Sedation in SS: Assess/Block/Sedation-SS Anesthetic Plan Anesthetic Plan: GA and TIVA Disposition: Standard PACU
[2023-10-23 11:29] VITALS: BMI 41.6
[2023-10-23 11:50] VITALS: BP 129/68; PULSE 66; RESP 16; TEMP 36.1; O2SAT 96
--- NOTE | 2023-10-23 12:00 | MHC.SHP ---
Pre-Procedural Eval Section A - 24 Hr Update-Section A only Date of Service: 10/23/23 The patient is an INPATIENT: No The patient has been examined within 24 hours of the surgical procedure. The History & Physical has been completed within 30 days and I have reviewed it.: Yes Section B - Complete if H&P > 30 days Chief Complaint: Morbid (severe) obesity due to excess calories Details of Present Illness: GERD Relevant Family History (Specify if Yes): No Relevant Social History: None Present Medications: None Medical History: No relevant PMH History of Previous Operations: No relevant previous surgery Allergies: Allergies Allergy/AdvReac Type Severity Reaction Status Date / Time Penicillins [PENICILLINS] Allergy Unknown BLACKED OUT Verified 09/20/23 10:11 Review of Systems Sugical H&P ROS: Negative: Constitution, Cardiovascular, Respiratory, Neurological, Psychiatric, Hem-Onc, Allergic/Immunologic, Gastrointestinal, Genitourinary, Musculoskeletal, Integumentary, Endocrine and Eyes/Ears/Nose/Throat Exam Surgical H&P Exam: Normal: HEENT, Normal: Heart, Normal: Lungs, Normal: Extremities, Normal: Abdomen, Normal: Skin and Normal: Neurological Plan Diagnosis/Plan: Unchanged (EGD to assess etiology of GERD. Risks of bleeding and perforation were discussed with the patient and she is in agreement with the plan.) I have reviewed the history and physical and performed a pertinent physical examination on my patient. No changes have occurred unless specified. Time Spent With Patient Time: Total time managing care of this patient today ____ minutes.
--- NOTE | 2023-10-23 12:07 | PM.OP ---
Brief Operative Note Date of Service: 10/23/23 Pre-op diagnosis: GERD Post-op diagnosis: same Procedure: PROCEDURE DATE: 10/23/2023 PREOPERATIVE DIAGNOSIS: GERD POSTOPERATIVE DIAGNOSIS: ?Same as above. 1) small hiatal hernia, 2) distal gastritis, 3) esophagitis PROCEDURE: [id number]-[id number] with biopsies Surgeon: ?Yoni Farfan M.D.. Ph.D. Child Care Education Coordinator: None ? Anesthesia: IV sedation Estimated blood loss: ?Minimal FINDINGS AND PROCEDURE: ? OPERATIVE INDICATIONS: ?The patient is a 43 year old female known to me who is interested in bariatric surgery. The patient has GERD. Based on this information I recommended an upper endoscopy to evaluate the patient's symptoms. Risks and complications of the surgery were discussed with the patient in advance particularly the possibility of perforation or bleeding that may require surgical intervention. The patient understood the risks and was in agreement with the plan. ? PROCEDURE: After informed consent was obtained by the patient, the patient was ?transferred to the Operating Room and was placed in the supine position.? After successful induction of IV sedation, a mouth block was inserted and the patient was placed in the left lateral decubitus position. An upper endoscopy was performed next, the oropharynx and esophagus appeared within the normal limits. There was a 2cm hiatal hernia. The z-line was irregular with tongues of gastric mucosa protruding into the esophagus in 50% circumference.. Two biopsies were obtained from the distal esophagus 2-3 cm proximal to the GE junction and two additional biopsies from the GE junction. The stomach was entered and it appeared to be of normal size. There was mild gastritis at distal antrum. There was no stricture or ulcer. A biopsy was obtained from the gastric fundus and the antrum. No significant bleeding was noted from any of the biopsy sites. Retroflexion of the scope revealed a small hiatal hernia. The scope was then advanced into the duodenum which appeared to be normal as well. At that point the duodenum ?and the stomach were decompressed and the scope was withdrawn from the patient's mouth. The patient extubated and was transferred in stable condition to the Recovery Room for further care. I was present and performed all steps of the procedure. There were no residents to assist with this case. Yoni Farfan M.D., Ph.D. Surgeon: Faizan Farfan MD Anesthesia: MAC Was an Child Care Education Coordinator used for this Procedure?: No Estimated blood loss (mL): 0 IV fluids (mL): 400 Urine output (mL): 0 (No Arellano to record output) Pathology: other (1) antrum x1, 2) fundus x1, 3) GE junction x2, 4) distal esophagus x2) Condition: stable Disposition: PACU
[2023-10-23 13:03] VITALS: BP 118/67; PULSE 72; RESP 26; TEMP 36.5; O2SAT 96
[2023-10-23 13:18] VITALS: BP 120/69; PULSE 64; RESP 16; TEMP 36.1; O2SAT 98
== END 2023-10-23 13:51 | disposition home or self-care (01) ==
PROVIDERS: PCP Internal Medicine; Visit Provider Surgery
PROC: 0DJ08ZZ Inspection of Upper Intestinal Tract, Via Natural or Artificial Opening Endoscopic (ICD-10-PCS; CPT 43235; principal; 2023-10-23 12:20)
DX: K21.9 Gastro-esophageal reflux disease without esophagitis (principal); K44.9 Diaphragmatic hernia without obstruction or gangrene; K29.60 Other gastritis without bleeding; K20.80 Other esophagitis without bleeding; K22.89 Other specified disease of esophagus; E66.01 Morbid (severe) obesity due to excess calories; Z68.41 Body mass index [BMI] 40.0-44.9, adult; M54.9 Dorsalgia, unspecified; M25.569 Pain in unspecified knee; J45.909 Unspecified asthma, uncomplicated; Z86.69 Personal history of other diseases of the nervous system and sense organs; Z79.899 Other long term (current) drug therapy; Z88.0 Allergy status to penicillin; Z98.890 Other specified postprocedural states; Z87.891 Personal history of nicotine dependence
CPT/HCPCS: 43239; 88305; 88313; 88342; J2704

== ENCOUNTER → 2023-10-23 10:27 | Outpatient (BNV) | payer OTHER, SELFPAY | PROVIDERS: PCP Internal Medicine; Visit Provider Surgery | DX: K44.9 Diaphragmatic hernia without obstruction or gangrene (principal) | CPT/HCPCS: 43239 ==

== ENCOUNTER 2023-11-06 14:42 | Outpatient (AMB) | payer OTHER, SELFPAY ==
--- NOTE | 2023-11-07 22:15 | MHC.OFFVISWM ---
VS Expanded 11/07/23 22:21 Height 5 ft 5 in Weight 245 lb BMI 40.8 Body Fat % 55.7 Body Fat Mass 136.4 Fat Free Mass 108.6 Visceral Fat Rating 24 Body Water % 30.4 Body Water Mass 74.5 Basal Metabolic Rate/Score 1,410 Intake Visit Reasons: TV Pre Op LSG 11/14/23 Allergies Penicillins [PENICILLINS] Allergy (Unknown, Verified 11/07/23 22:27) BLACKED OUT Medication List - Last Reconciled 11/07/23 by Faizan Farfan MD cholecalciferol (vitamin D3) 125 mcg PO DAILY iron,carbonyl-vitamin C 65 mg iron- 125 mg (Vitron-C) 1 tab PO DAILY ondansetron 4 mg PO Q12H pantoprazole 40 mg PO DAILY pantoprazole 40 mg PO DAILY polyethylene glycol 3350 17 grams PO DAILY sucralfate 10 mL PO BID thiamine HCl (vitamin B1) 100 mg PO DAILY thiamine HCl (vitamin B1) 100 mg PO DAILY vitamin A palmitate 10,000 units PO DAILY vitamin A palmitate 10,000 units PO DAILY 90 days HPI HPI TV Pre Op LSG 11/14/23: Details: Start time: 3pm, End time: 3.30pm ?I spent 25 minutes speaking with the patient on the phone plus an additional 5 minutes reviewing and updating records for a total of 30 minutes HPI Comments Details: Overall weight loss: 19.2lbs or 7.27% TBWL Is doing one Pure protein shake (1/2 scoop in almond milk), 3 Atkins bars and one meal (8 forks of protein and 8 forks of salad or vegetables) Exercise: walking outside for 285cal x7/week [facility] Medical History Knee pain Back pain Asthma GERD (gastroesophageal reflux disease) Morbid obesity History of seizure Surgical History History of tonsillectomy and adenoidectomy Hx of bilateral salpingectomy Family History Maternal Grandfather Brain cancer Lung cancer Maternal Grandmother Lung cancer Social History Housing: House Alcohol intake: current Alcohol intake frequency: holidays/special occasions only Patient Tobacco Use Status: Former Tobacco user Cigarette Packs Per Day: 1 Cigarettes Per Day: 20 e-Cigarette/Vaping Use: Never Used service: No Current occupational status: unemployed Cognitive needs: No Hearing needs: No Vision needs: No Physical Exam Vital Signs: BMI result Body Mass Index 40.8 Telehealth Telehealth Telehealth Platform: Telephone Location of provider rendering services: practice address Location of patient: address on file Patient Identification confirmed using: Name, : Yes Telehealth method: voice only Patient verbally consented to treatment: Yes Patient verbally consented to billing insurance company: Yes Patient informed of any privacy concerns related to visit: Yes Minutes spent on Phone/Video with Pt.: 30 Assessment & Plan Assessment & Plan (1) Morbid obesity: Code(s): E66.01 - Morbid (severe) obesity due to excess calories Category: Medical Plan: 1. Plan for lap sleeve gastrectomy including upper GI endoscopy. All tests has been completed and reviewed and the patient is cleared for the surgery. ?If diaphragmatic or ventral hernias are present at time of surgery, these will be repaired laparoscopically as well. Risks and complications were discussed in detail including possible conversion to an open procedure, anastomotic leak, bleeding requiring transfusion, small bowel obstruction, , DVT and pulmonary embolism, cardiac, or pulmonary complications, as parts counterman complications such as anastomotic ulcer, insufficient weight loss and vitamin deficiencies. I emphasized the importance of close follow-up, adherence to instructions and good communication. So far she has proven to be an excellent communicator and very compliant with all our directions accomplishing a great weight loss. I believe that she is an excellent candidate and she is ready. 2. Preop prescriptions were provided and explained the purpose of each one. Need to be purchased preop. Start Pantoprazole now as you get it from the pharmacy, 1 pill per day. Sucralfate and Zofran are for after surgery as needed. 3. Bowel prep: please do 7 packets ?of Miralax mixing each one with a an 8oz glass of water, crystal light, gatorade zero, or propel ?on 11/12/23 and the same amount on . The Miralax you begin with one packet at a time in 8oz water or crystal light, gatorade zero, or propel ?as early in the day as you can and you do them back to back until you finish them. Continue the protein shakes during ?the bowel prep. 4. Needs to purchase 1oz medicine cups . 5. Needs to purchase Children's liquid Tylenol for postop pain control. 6. Avoid aspirin, motrin, Advil, Aleve, Ibuprofen, Naproxyn. Tylenol is OK. 7. She needs to purchase the Celebrate 4:1 protein shakes from the hospital's gift shop. 8. Will do basic preop blood work-up tomorrow Saturday11/08/23 fasting for 12 hours and is scheduled to see the Anesthesiologist prior to the day of surgery. 9. Importance of adherence to postop folllow-up and recommendations was underscored and she understands that. 10. Stop food and bars as of tomorrow 11/08/23 and continue with 3?Pure protein shakes (1/2 scoop in 8oz almond milk) at 9am-11am, 12pm-2pm, 3pm-5pm and TWO more Pure protein shake with ONE scoop in 8oz of almond milk at 6pm-8pm and 9pm-11pm 10. No soups, broths or V8 11. The patient's?medical?history has been reviewed and they are considered low risk for post op DVT and therefore DVT prophylaxis is not considered necessary. Travel after surgery was reviewed. The patient has not disclosed any travel plans during the first 30 days after surgery and they have been advised that within the first 30 days after surgery any bus, plane, train or car travel over 2 hours in duration is contraindicated due to the possibility of developing blood clots from immobility. Any travel, needs to include periods of ambulation of 10 minutes in duration every 2 hours.? Patient was instructed to discuss any plans for travel during this period with their bariatric surgeon.? 12. Please take at the day of surgery the following medications: NONE 13. Stop any control pills and don't use them for one month after surgery 14. Absolutely no smoking or vaping, or marijuana until the surgery and for at least the first 4 weeks. Only nicotine patches are allowed. 15. Send me weight measurements tomorrow Saturday11/08/23 and then on 11/14/23, the day of surgery before you go to the hospital. 16. Avoid any steroids by mouth for any reason. Let me know if someone prescribes them to you 17. These instructions supersede anything else you read in the handbook, anything you watched in videos or classes or you were told by any other provider. If there is any conflict, you follow the above instructions and nothing else. Orders: Orders TSH reflex Free T4 Today E66.01 - Morbid (severe) obesity due to excess calories, J45.909 - Unspecified asthma, uncomplicated, K21.9 - Gastro-esophageal reflux disease without esophagitis Partial Thromboplastin Time Today E66.01 - Morbid (severe) obesity due to excess calories, J45.909 - Unspecified asthma, uncomplicated, K21.9 - Gastro-esophageal reflux disease without esophagitis C Reactive Protein Today E66.01 - Morbid (severe) obesity due to excess calories, J45.909 - Unspecified asthma, uncomplicated, K21.9 - Gastro-esophageal reflux disease without esophagitis Lipid Panel Today E66.01 - Morbid (severe) obesity due to excess calories, J45.909 - Unspecified asthma, uncomplicated, K21.9 - Gastro-esophageal reflux disease without esophagitis Hemoglobin A1c Today E66.01 - Morbid (severe) obesity due to excess calories, J45.909 - Unspecified asthma, uncomplicated, K21.9 - Gastro-esophageal reflux disease without esophagitis Insulin Today E66.01 - Morbid (severe) obesity due to excess calories, J45.909 - Unspecified asthma, uncomplicated, K21.9 - Gastro-esophageal reflux disease without esophagitis Comprehensive Met. Panel Today E66.01 - Morbid (severe) obesity due to excess calories, J45.909 - Unspecified asthma, uncomplicated, K21.9 - Gastro-esophageal reflux disease without esophagitis Prothrombin Time INR Today E66.01 - Morbid (severe) obesity due to excess calories, J45.909 - Unspecified asthma, uncomplicated, K21.9 - Gastro-esophageal reflux disease without esophagitis Type and Screen Today E66.01 - Morbid (severe) obesity due to excess calories, J45.909 - Unspecified asthma, uncomplicated, K21.9 - Gastro-esophageal reflux disease without esophagitis Complete Blood Count Auto Diff Today E66.01 - Morbid (severe) obesity due to excess calories, J45.909 - Unspecified asthma, uncomplicated, K21.9 - Gastro-esophageal reflux disease without esophagitis Medications: New sucralfate 10 mL PO BID 600 mL 2RF K21.9 - Gastro-esophageal reflux disease without esophagitis polyethylene glycol 3350 Mix each measuring cup with 8oz of water, Crystal light, or Gatorade zero, or Propel and do 7 measuring cups on 11/12/23 and another 7 measuring cups on 11/13/23 17 grams PO DAILY 238 grams 0RF Z01.818 - Encounter for other preprocedural examination pantoprazole 40 mg PO DAILY 90 tabs 0RF K21.9 - Gastro-esophageal reflux disease without esophagitis ondansetron Only take one every 12 hours as needed if you have nausea 4 mg PO Q12H 20 tabs 0RF nausea and vomiting R11.0 - Nausea
[2023-11-07 22:21] VITALS: BMI 40.8
== END 2023-11-08 19:24 | disposition home or self-care (01) ==
LOC: HO.HBS 14:42
PROVIDERS: PCP Internal Medicine; Visit Provider Surgery
DX: E66.01 Morbid (severe) obesity due to excess calories (principal)
CPT/HCPCS: 99214

== ENCOUNTER → 2023-11-06 14:42 | Outpatient (BNVA) | payer OTHER, SELFPAY | PROVIDERS: PCP Internal Medicine; Visit Provider Surgery ==

== ENCOUNTER → 2023-11-08 10:25 | Outpatient (BNVA) | payer OTHER, SELFPAY | PROVIDERS: PCP Internal Medicine; Visit Provider Surgery ==

== ENCOUNTER 2023-11-14 05:49 | Inpatient (IN) | payer OTHER, SELFPAY ==
[2023-11-08 09:48] LABS: MANUAL DIFF FLAG NO
[2023-11-08 10:47] LABS: Basophils Percent Auto 0.5 % (0-2); Eosinophils Absolute Auto 0.1 X10*3/uL (0.0-0.4); Eosinophils Percent Auto 1.9 % (0-4); Hematocrit 37.9 % (37.0-47.0); Hemoglobin 11.9 g/dl (12.0-16.0); Lymphocytes Absolute Auto 1.2 X10*3/uL (1.2-4.9); Lymphocytes Percent Auto 29.2 % (20-40); Mean Corpuscular HGB Conc 31.4 g/dl (31.0-35.0); Mean Corpuscular Hemoglobin 26.9 pg (27.0-33.0); Mean Corpuscular Volume 85.7 fL (80.0-98.0); Monocytes Absolute Auto 0.4 X10*3/uL (0.1-1.2); Monocytes Percent Auto 10.2 % (2-11); Neutrophils Absolute Auto 2.4 x10*3/uL (2.0-8.3); Neutrophils Percent Auto 58.2 % (45-73); Platelet Count 226 X10*3/uL (160-400); Red Blood Count 4.42 X10*6/uL (4.20-5.50); Red Cell Distribution Width 15.4 % (11.0-16.0); White Blood Count 4.1 X10*3/uL (4.8-10.8)
[2023-11-08 10:50] LABS: Estimated Average Glucose 103 mg/dL; Hemoglobin A1c % 5.2 % (<6.0)
[2023-11-08 10:51] LABS: Prothrombin Time 12.6 SEC (11.1-13.3)
[2023-11-08 10:54] LABS: Partial Thromboplastin Time 30.8 SEC (26.0-36.8)
[2023-11-08 11:19] LABS: Alanine Aminotransferase 18 U/L (0-31); Albumin Level 4.3 g/dL (3.5-5.0); Alkaline Phosphatase 84 U/L (39-117); Anion Gap 13 (12-20); Aspartate Amino Transferase 17 U/L (5-31); Bilirubin Total 0.5 mg/dL (0.0-1.0); Blood Urea Nitrogen 13 mg/dL (9-16); C Reactive Protein 0.45 mg/dL (< or = 0.50); Calcium 9.8 mg/dL (8.4-10.2); Carbon Dioxide 27 mmol/L (22-29); Chloride 106 mmol/L (96-108); Cholesterol 148 mg/dL (<200); Estimated Glomerular Filt Rate > 60; Glucose Random 93 mg/dL (60-115); HDL Cholesterol 51 mg/dL (>40); LDL Cholesterol Calculated 89 mg/dL (<100); Potassium 4.5 mmol/L (3.3-5.1); Sodium 141 mmol/L (135-145); Total Protein 7.1 g/dL (6.5-8.0); Triglycerides 44 mg/dL (<150)
[2023-11-08 11:38] LABS: Insulin 6 uU/mL (2-29); TSH reflex Free T4 1.16 uIU/mL (0.32-4.0)
--- NOTE | 2023-11-12 15:02 | HO.ANESPROP2 ---
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 (Acute) Dysthymia (Acute) Vitamin B1 deficiency (Acute) Vitamin A deficiency (Acute) Vitamin D deficiency (Acute) Iron deficiency (Acute) Breast cancer screening (Acute) Mary infection of genital region (Acute) Hx of gestational diabetes mellitus, not currently (Acute) Screen for sexually transmitted diseases (Acute) Cervical cancer screening (Acute) Lumbar radiculopathy (Acute) LFT elevation (Acute) Encounter for general adult medical examination with abnormal findings (Acute) Skin growth (Acute) Encounter for routine gynecological examination (Acute) Shortness of breath (Acute) Obesity due to excess calories (Acute) Encounter to establish care with new doctor (Acute) Lumbar pain (Acute) Knee pain, left (Acute) Upper respiratory tract infection (Acute) Knee pain (Acute) Back pain (Acute) Asthma (Acute) GERD (gastroesophageal reflux disease) (Acute) Morbid obesity (Acute) Hx of bilateral salpingectomy (Acute) Past Medical History Medical History Knee pain Back pain Asthma GERD (gastroesophageal reflux disease) Morbid obesity History of seizure Family History Family History Maternal Grandfather Brain cancer Lung cancer Maternal Grandmother Lung cancer Family history of problems with anesthesia: Yes (Slow awakening in son) Surgical History Surgical History Hx of laparoscopy History of esophagogastroduodenoscopy (EGD) History of tonsillectomy and adenoidectomy Hx of bilateral salpingectomy History of Problems with Anesthesia: No Social History Social History Household Members Other:: minor children Housing: House Are you a primary infant childcare provider to a significant other at home: Yes (minor children) Do you presently have visiting nurse or other home services: No Alcohol intake: current Alcohol intake frequency: holidays/special occasions only Patient Tobacco Use Status: Former Tobacco user Tobacco use type: Cigarette Cigarette Packs Per Day: 1 Cigarettes Per Day: 20 Years Smoked: 27 e-Cigarette/Vaping Use: Never Used Use of substances other than those prescribed or required for medical reasons: No Have you been hit, kicked, punched, or otherwise hurt by someone within the past year? If so, by whom?: No Are you DNR?: No Advance Directives: No Advance Directives Information Provided: No Advance Directives on File: No Recently lost weight without trying: No Eating poorly because of decreased appetite: No Nutrition Risks: No Nutritional Risk Patient : No FDLMP: 11/03/23 Poor oral hygiene: No (upper full denture) service: No Current occupational status: unemployed Cognitive needs: No Hearing needs: No Vision needs: No Meds Allergies Allergy/AdvReac Type Severity Reaction Status Date / Time Penicillins [PENICILLINS] Allergy Unknown BLACKED OUT Verified 11/07/23 22:27 Exam Pertinent Lab Results Pertinent Lab Results: Laboratory Tests 11/08/23 11/08/23 09:40 09:46 WBC 4.1 L RBC 4.42 Hgb 11.9 L Hct 37.9 MCV 85.7 MCH 26.9 L MCHC 31.4 RDW 15.4 Plt Count 226 MPV 12.0 Immature Gran % (Auto) 0.0 Neut % (Auto) 58.2 Lymph % (Auto) 29.2 [place] % (Auto) 10.2 Eos % (Auto) 1.9 Baso % (Auto) 0.5 Lymph # (Auto) 1.2 [place] # (Auto) 0.4 Eos # (Auto) 0.1 Baso # (Auto) 0.0 Abs Immat Gran (auto) 0.00 Absolute Neuts (auto) 2.4 Absolute Nucleated RBC 0.000 Nucleated RBC % (auto) 0.0 PT 12.6 INR 1.0 APTT 30.8 Sodium 141 Potassium 4.5 Chloride 106 Carbon Dioxide 27 Anion Gap 13 BUN 13 Creatinine 0.72 Estim Creat Clear Calc TNP Estimated GFR > 60 Random Glucose 93 Estimat Average Glucose 103 Hemoglobin A1c % 5.2 Insulin Level 6 Calcium 9.8 Total Bilirubin 0.5 AST 17 ALT 18 Alkaline Phosphatase 84 C-Reactive Protein 0.45 Total Protein 7.1 Albumin 4.3 Triglycerides 44 Cholesterol 148 LDL Cholesterol, Calc 89 HDL Cholesterol 51 TSH 1.16 Blood Type O Positive Antibody Screen NEGATIVE Narrative Narrative: EKG 09/2023 Vent. 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 (Acute) Dysthymia (Acute) Vitamin B1 deficiency (Acute) Vitamin A deficiency (Acute) Vitamin D deficiency (Acute) Iron deficiency (Acute) Breast cancer screening (Acute) Mary infection of genital region (Acute) Hx of gestational diabetes mellitus, not currently (Acute) Screen for sexually transmitted diseases (Acute) Cervical cancer screening (Acute) Lumbar radiculopathy (Acute) LFT elevation (Acute) Encounter for general adult medical examination with abnormal findings (Acute) Skin growth (Acute) Encounter for routine gynecological examination (Acute) Shortness of breath (Acute) Obesity due to excess calories (Acute) Encounter to establish care with new doctor (Acute) Lumbar pain (Acute) Knee pain, left (Acute) Upper respiratory tract infection (Acute) Knee pain (Acute) Back pain (Acute) Asthma (Acute) GERD (gastroesophageal reflux disease) (Acute) Morbid obesity (Acute) Hx of bilateral salpingectomy (Acute) Past Medical History Medical History Knee pain Back pain Asthma GERD (gastroesophageal reflux disease) Morbid obesity History of seizure Family History Family History Maternal Grandfather Brain cancer Lung cancer Maternal Grandmother Lung cancer Surgical History Surgical History Hx of laparoscopy History of esophagogastroduodenoscopy (EGD) History of tonsillectomy and adenoidectomy Hx of bilateral salpingectomy Social History Social History Household Members Other:: minor children Housing: House Are you a primary infant childcare provider to a significant other at home: Yes (minor children) Do you presently have visiting nurse or other home services: No Alcohol intake: current Alcohol intake frequency: holidays/special occasions only Patient Tobacco Use Status: Former Tobacco user Tobacco use type: Cigarette Cigarette Packs Per Day: 1 Cigarettes Per Day: 20 Years Smoked: 27 e-Cigarette/Vaping Use: Never Used Use of substances other than those prescribed or required for medical reasons: No Have you been hit, kicked, punched, or otherwise hurt by someone within the past year? If so, by whom?: No Are you DNR?: No Advance Directives: No Advance Directives Information Provided: No Advance Directives on File: No Recently lost weight without trying: No Eating poorly because of decreased appetite: No Nutrition Risks: No Nutritional Risk Patient : No FDLMP: 11/03/23 Poor oral hygiene: No (upper full denture) service: No Current occupational status: unemployed Cognitive needs: No Hearing needs: No Vision needs: No Meds Allergies Allergy/AdvReac Type Severity Reaction Status Date / Time Penicillins [PENICILLINS] Allergy Unknown BLACKED OUT Verified 11/07/23 22:27 Exam Airway Mallampati Class: II TM Dist: >3cm Neck ROM: Full Denture: Upper Loose/Missing/Broken Teeth: Yes, Upper and Lower Heart: RRR Lungs: CTA Assessment and Plan Assessment Anesthesia Assessment: Anesthesia Plan Discussed Final Anesthetic Review NPO: Yes ASA Class: III Final Preanesthetic Review: Meds/Allgs Chart Reviewed, Consent Obtained/Reviewed and Anes Risks/Benef Reviewed Patient Risk: Intermediate Procedure Risk: Intermediate Anesthetic Plan Anesthetic Plan: GA Disposition: Standard PACU
[2023-11-13 08:58] VITALS: BMI 39.1
[2023-11-14] VITALS (17 sets, daily range): BP systolic 99–132; BP diastolic 50–84; PULSE 50–64; RESP 12–18; TEMP 36.1–36.9; O2SAT 93–99; BMI 39.7
[2023-11-14] MEDS: Lactated Ringers 1,000 ML 100 ML IVCONT ×3 (06:14→22:44)
[2023-11-14] MEDS: Aprepitant 32 MG/4.4 ML VIAL IVPUSH (06:14)
[2023-11-14] MEDS: Lactated Ringers 1,000 ML 999 ML IV (06:15)
--- NOTE | 2023-11-14 07:10 | PC.NURSE ---
one liter of fluids bolus in prep pt to br nad
--- NOTE | 2023-11-14 07:34 | MHC.SHP ---
Pre-Procedural Eval Section A - 24 Hr Update-Section A only Date of Service: 11/14/23 The patient is an INPATIENT: No The patient has been examined within 24 hours of the surgical procedure. The History & Physical has been completed within 30 days and I have reviewed it.: Yes Section B - Complete if H&P > 30 days Chief Complaint: morbid obesity Relevant Family History (Specify if Yes): No Relevant Social History: None Present Medications: None Medical History: No relevant PMH History of Previous Operations: No relevant previous surgery Allergies: Allergies Allergy/AdvReac Type Severity Reaction Status Date / Time Penicillins [PENICILLINS] Allergy Unknown BLACKED OUT Verified 11/07/23 22:27 Review of Systems Sugical H&P ROS: Negative: Constitution, Cardiovascular, Respiratory, Neurological, Psychiatric, Hem-Onc, Allergic/Immunologic, Gastrointestinal, Genitourinary, Musculoskeletal, Integumentary, Endocrine and Eyes/Ears/Nose/Throat Exam Surgical H&P Exam: Normal: HEENT, Normal: Heart, Normal: Lungs, Normal: Extremities, Normal: Abdomen, Normal: Skin and Normal: Neurological Plan Diagnosis/Plan: Unchanged I have reviewed the history and physical and performed a pertinent physical examination on my patient. No changes have occurred unless specified. Time Spent With Patient Time: Total time managing care of this patient today ____ minutes.
--- NOTE | 2023-11-14 08:53 | PHA.MEDREC ---
Pharmacy Consult ? Medication Reconciliation Pharmacy has completed the medication reconciliation. RN completed the med rec, pharmacy reviewed
--- NOTE | 2023-11-14 10:25 | P.DS_ITS ---
DS: Providers Provider Date of Service: 11/15/23 Date of admission: 11/14/23 05:49 Primary care physician: Omer Whitney MD DS: Summary Hospital Course Hospital Course: ADMITTING DIAGNOSIS: obesity, arthritis ? DISCHARGE DIAGNOSIS: same, s/p laparoscopic sleeve gastrectomy ? PAST SURGICAL HISTORY: tubal ligation ? PROCEDURE: upper endoscopy, laparoscopic sleeve gastrectomy ? DISCHARGE SUMMARY: ? History of Present Illness: ? The patient is a?43 year-old woman with a BMI of?43.9 kg/m2 and associated co- morbidities as described above. The patient had extensive work-up,lost?32.7 lbs preoperatively and was electively scheduled for laparoscopic, possible open sleeve gastrectomy and gastropexy. Risks and complications of the surgery were discussed with the patient in advance, particularly the possibility of , pulmonary embolism, anastomotic leak, bleeding, bowel injury, GERD, cardiac, renal or pulmonary complications. The patient understood all the risks and was in agreement with the surgical plan. ? Hospital Course: ? The patient underwent an uneventful laparoscopic sleeve gastrectomy with gastropexy on the day of admission. Postoperatively, the patient was transferred to the surgical floor. The patient received IV Acetaminophen and IV dilaudid for pain control. Patient was started on bariatric phase 1 diet POD #0. On post operative day one, the patient was feeling well without nausea, vomiting, fevers, or tachycardia. The patient had some mild incisional pain and the abdomen was soft. ? On the morning of postoperative day one, the patient was continued on 1 ounce of water or ice every half hour. During the day, the patient did fairly well, having some incisional pain, but able to ambulate adequately and to tolerate liquids well. ? Since the patient is doing well, we decided that the patient was ready to be discharged. The patient was given instructions to follow-up with me next week and to call my office for any fever over 101, persistent abdominal pain, nausea, vomiting, GERD, symptoms of DVT such as calf tenderness, or leg swelling, or pulmonary embolism such as chest pain or shortness of breath. The patient was also instructed to drink 40-60 ounces of liquids per day using the 1-ounce cups. The patient had been given prescriptions for Tylenol for pain, Zofran prn for nausea, and pantoprazole and carafate previously. The patient was encouraged to ambulate and use the incentive spirometer. The patient was allowed to shower, but no baths, and encouraged to stay active at home. All of these in structions were given to the patient personally. All questions were answered and the patient understood all instructions, the instructions were also given to the patient in print. Time Attestation Total time managing care of this patient today: 25 mintues. Discharge Coordination Time (in mins): 25 Quality: Safe Use of Opioids Does Pt have an Active Cancer Diagnosis on the Problem List?: No Quality: Stroke Does the patient have a stroke diagnosis?: No Physical Exam Vital Signs: Vital Signs: Last Vital Signs Temp 98.5 F 11/14/23 05:55 Pulse 61 11/14/23 05:55 Resp 18 11/14/23 05:55 BP 125/74 11/14/23 05:55 Pulse Ox 98 11/14/23 05:55 O2 Del Method Room Air 11/14/23 05:55 BMI result Body Mass Index 39.7 DS: Data Data Completed and Pending Pending studies at discharge: Pending at discharge 11/14/23 09:51 Surgical [PTH] Routine Discharge Plan Discharge Anticipated Discharge Date/Time: 11/15/23 10:00 Patient Disposition: Home, Self-Care Discharge Diagnosis: s/p laparoscopic sleeve gastrectomy Referrals: Omer Whitney MD [Primary Care Provider] - 1 Week Discharge Medications: Continued pantoprazole 40 mg tablet,delayed release (DR/EC) 40 mg PO DAILY@0630 Rx Instructions: postop per pt sucralfate 100 mg/mL suspension 10 ml PO BID Qty: 600 2RF Patient Comments: postop per pt ondansetron 4 mg tablet,disintegrating 4 mg PO Q12H Qty: 20 0RF Rx Instructions: Only take one every 12 hours as needed if you have nausea Discontinued Vitron-C 65 mg iron- 125 mg tablet,delayed release (DR/EC) 1 tab PO DAILY Qty: 90 0RF Rx Instructions: swallow whole; do not chew/break/dissolve/open cholecalciferol (vitamin D3) 125 mcg (5,000 unit) capsule 125 mcg PO DAILY Qty: 90 0RF vitamin A palmitate 3,000 mcg (10,000 unit) capsule 10,000 unit PO DAILY Qty: 90 0RF thiamine HCl (vitamin B1) 100 mg tablet 100 mg PO DAILY Qty: 90 0RF Discharge Orders: Discharge Order (Routine); Ordered 11/15/23 Ordered By: Faizan Farfan Activity on Discharge: No heavy lifting Stand Alone Forms: Patient Portal Discharge page Print Language: Slovak Care Plan Goals: weight loss Health Concerns: obesity Plan of Treatment: No tub baths, sex or returning to work until discussed at first post op appointment. No exercise, alcohol, tobacco or illegal drug use. Continue to use incentive spirometer hourly while awake. Walk in home for 5- 10 minutes every 2 hours during the first week. Follow all instructions in the bariatric handbook and call with any questions.Discharge Instructions 1. Please call your doctor or come back to the emergency room should any new symptoms arise. 2. You will receive a courtesy call from [facility] 24-48 hours after discharge. 3. Activity: abstain from alcohol, practice limited stair climbing, no bending, no driving, no exercise, no illicit substances, no lifting, no sex, no tub bath, no work. 4. Diet: continue as discussed with Dr. Farfan. 5. Dressing Change/Wound Care: Your incision is covered by clear bandages and guaze underneath. If the area is tender, you may apply an ice pack for short intervals (no more than 20 minutes on, followed by at least 20 minutes off). Do not apply heat. Do not use creams, lotions, or topical antibiotics unless instructed to do so by your surgeon. These can cause infection or allergic reaction. 6. Call your doctor if: - Your temperature exceeds 101.5 F - You experience excessive pain or swelling - You have an unexpected reaction to medication - You have excessive bleeding - You experience continued vomiting/nausea - Your incision begins to separate - Your incision shows signs of infection such as increased redness, swelling, excessive pain, heat, or drainage (light blood or clear fluid is normal) 7. General instructions: No lifting greater than 5 lbs for 1 week and not more than 20lbs the next 3?weeks. No driving until seen at the office in 5-7 days after surgery. If you do not move your bowels in the next 2 days, please tell?Dr. Farfan. Please walk around your home every hour or two to prevent blood clots from forming in your legs. You do not need to wake from sleeping to walk. Please sleep in a bed or couch to prevent kinking at the hips and knees. Please take your incentive spirometer (your lung appliance line assembler) home with you and use it for the next few days to prevent pneumonia. You may shower, no hot tubs, baths or swimming pools.?Please follow the post op diet instructions you are?given by Dr Farfan? and text me daily at 5-6pm for an update.?If you have any issues or concerns or questions please communicate this to him via text.? The Celebrate shakes have all of the bariatric vitamins you need if you consume these shakes. If you are drinking other protein shakes, you will need to purchase the Celebrate multivitamins and calcium that are available in the hospital gift shop on the first floor of the [facility].??Do not take anythi ng without first discussing with Dr Farfan. Please make sure you are consuming at least 40 ounces of fluids per day starting the?day AFTER your discharge from the hospital. Always drink 1-2 ml per minute using the 5ml?syringe. If you drink faster you may experience?bloating,?gas pain, burping, nausea or heartburn. In that case please slow down your pace and use the syringe to?understand better the?proper?pace and volume of drinking. Do not hesitate to contact the office with any questions at . The patient's medical history has been reviewed and they are considered low risk for post op DVT and therefore DVT prophylaxis is not considered necessary. Travel after surgery was reviewed. The patient has not disclosed any travel plans during the first 30 days after surgery and they have been advised that within the first 30 days after surgery any bus, plane, train or car travel over 2 hours in duration is contraindicated due to the possibility of developing blood clots from immobility. Any travel, needs to include periods of ambulation of 10 minutes in duration every 2 hours.? The patient was instructed to discuss any plans for travel during this period with their bariatric surgeon. Assessment: stable s/p laparoscopic sleeve gastrectomy Patient Instructions: Nutrition after Bariatric Surgery (DC), Laparoscopic Sleeve Gastrectomy (DC) Discharge Date/Time: 11/15/23 09:15
[2023-11-14] MEDS: fentaNYL citrate/PF 100 MCG/2 ML VIAL 25 MCG IVPUSH ×4 (10:33→11:32)
[2023-11-14] MEDS: HYDROmorphone HCl 0.5 MG/0.5 ML SYRINGE 0.25 MG IVPUSH ×4 (10:52→22:42)
[2023-11-14 11:09] LABS: Hematocrit 34.3 % (37.0-47.0); Hemoglobin 11.2 g/dl (12.0-16.0)
--- NOTE | 2023-11-14 11:14 | P.BOP_ITS ---
Brief Operative Note Date of Service: 11/14/23 Pre-op diagnosis: Morbid obesity with comorbidities (see below) Post-op diagnosis: same (& congenital abdominal adhesions) Procedure: INITIAL PATIENT BMI ON PRESENTATION AT OUR OFFICE: 44 kg/m2 LAST BMI BEFORE SURGERY: 41.5 kg/m2 COMORBIDITIES: GERD, back pain, liver steatosis, Horton's ?The patient presented to the Weight Management Program with significant obesity that was negatively impacting the patient's comorbidities as listed above.? The program is a phased program with a special focus on preoperative medical weight management to promote substantial weight loss and prepare the patients for the second phase of the program: bariatric surgery. The patient participated in an intensive weekly lifestyle ?intervention and exercise program during which the patient ?has lost between the initial office visit and the last preoperative visit 24.4 lbs, or 9.24% of initial actual body weight. It was deemed appropriate for the patient to now have bariatric surgery. In light of the curr ent Covid-19 pandemic and the well documented strong association of obesity and increased risk of worse outcomes if infected with Covid-19 (REFERENCES: https://pubmed.ncbi.nlm.nih.gov/13329028/ ,? https://pubmed.ncbi.nlm.nih.gov/78174432/ ), any delay in undergoing bariatric surgery may lead to the patient's worsening health condition and increased?risk of more severe Covid-19 disease if infected. In addition a recent?study from [facility] published in [facility] on 05/01/2021 ([email or web address].pdf) found that, among patients with obesity, substantial weight loss achieved with surgery was associated with improved outcomes of COVID-19 infection. The findings suggest that obesity can be a modifiable risk factor for the severity of COVID-19 infection. In addition, the patient met the BMI-criteria for bariatric surgery based on the BMI on initial presentation. The patient should not be penalized for achieving such weight loss because ?it is not sustainable long-term without surgical intervention and it was achieved in preparation for bariatric surgery ?under my direction and based on my published research ([email or web address]).[email or web address] and? https://www.soard.org/article/D4381-5178(62)11130-X/pdf ) ?that a 10% preoperative weight loss improves long-term weight loss after surgery and reduces perioperative complications.? Insurance carriers such as [facility] have endorsed my recommendations ?and have included in their policies criteria to include a 10% preoperative weight loss requirement. PROCEDURE: Esophago-gastroscopy, laparoscopic lysis of adhesions, laparoscopic sleeve gastrectomy and laparoscopic gastropexy INDICATIONS: This is a 53 year-old female who was electively scheduled for laparoscopic, possibly open sleeve gastrectomy. The risks and complications of the procedure were discussed with the patient in advance, particularly the possibility of ; pulmonary embolism; staple line leak; bleeding; GERD; cardiac, pulmonary, or renal complications; as well as long-term problems such as insufficient weight loss, vitamin deficiency, strictures, or ulcers. The patient understood all the risks, and was in agreement to proceed with surgery. DESCRIPTION OF PROCEDURE: After informed consent was obtained from the patient, the patient was given preoperative antibiotics, and was transferred to the operating room. After successful induction of general anesthesia, pneumatic compression devices were placed on both lower extremities. An upper endoscopy was performed next. The oropharynx and esophagus appeared to be within normal limits. There was a diaphragmatic hernia present of moderate size consistent with the findings of the preoperative upper GI. The stomach was entered. Then after all fluid and air were suctioned and the stomach was fully decompressed, the scope was withdrawn and secured in the mid esophagus. The patient was then prepped and draped in the usual sterile manner, and abdominal access was established at the right upper quadrant with the Teo technique. A 12 mm blunt port was inserted, and the abdomen was insufflated with CO2 to a pressure of 15 mmHg. Under direct visualization, additional ports were placed, specifically two 5 mm Versi-step ports to the left upper quadrant, and a 5 mm Versi-Step port to the right upper quadrant. 1% lidocaine plain was used to infiltrate all port sites as well as all fascia defects. There were adhesions in the abdomen involving the omentum and the left lateral abdominal wall. Those were lysed completely with the ultrasonic device. Following that, the patient was placed in a steep reverse Trendelenburg position. An additional 5 mm port was placed to the right flank for the Mediflex retractor that was used to retract the left lobe of the liver. The gastro-esophageal fat pad was opened with the ultrasonic device (Thun derbeat, Olympus) and the anterior esophagus and hiatus were exposed. The angle of His was opened with the ultrasonic device the fundus of the stomach from any diaphragmatic and splenic attachments. I then opened the gastrocolic ligament between the transverse colon and the greater curvature of the stomach with the ultrasonic device to enter the lesser sac and facilitate the ligation of the short gastric vessels. I started at a mid-point along the greater curvature and using the Thunderbeat, all short gastric vessels were divided all the way to the angle of His until the left drew was completely dissected at its entirety. I then divided the gastro-colic ligament distally to a distance of about 3-4 cm proximal to the pylorus. There were extensive congenital adhesions between the pancreas and posterior gastric wall. Those were lysed completely with the ultrasonic device. Adhesiolysis took approximately 45 min to complete. The stomach was then divided transversely with thee Endo JERI-45 purple and three JERI-60 articulating purple loads using the Reenergy Electric stapler and loads. Every effort was made that the gastric sleeve had a tubular shape and an even caliber throughout. Once the sleeve resection was completed, the staple line of the gastric sleeve was reinforced with Hemoclips. The resected stomach was retrieved without difficulty from the Teo port. A gastropexy was then performed in order to prevent postoperative GERD and partial gastric volvulus. Several interrupted 2.0 Surgidac sutures were placed between the sleeve's staple line and the previously divided greater omentum and gastro-colic ligament using the Endo-Stitch device. ?An upper endoscopy was performed. There was no narrowing at the GE junction. The scope was easily advanced all the way to the pylorus which was clearly visualized. There was no narrowing anywhere and the sleeve's caliber was even throughout. The sleeve's staple line was inspected and there was no evidence of ischemia, bleeding or dehiscence. At that point the gastroscope was withdrawn from the patient?s mouth while we were decompressing the bowel and the stomach from any remaining air. I looked into the lesser sac to see how the sleeve was situating and it was situating well. There was no bleeding from the staple line, spleen, or short gastric vessels. The Mediflex retractor was removed, and the undersurface of the liver was inspected and there was no bleeding. The patient was placed in supine position. I closed the fascial defect of the 12 mm port site with a figure of eight #1 Polysorb suture. Then 30cc Ropivacaine plain with 10 mg of Dexamethasone were used to infiltrate the fascial closure as well as all skin incisions. A total of 7ml Zynrelf was applied in the Teo wound. At this point, the abdomen was deflated, all ports were removed under direct vision, and no bleeding was noted from any of the port sites. The skin incisions were irrigated with saline and were closed with 4-0 absorbable monofilament sutures. Steri-Strips and OpSites were used to cover all incisions. The patient was extubated and was transferred in stable condition to the recovery room for further care. I was present and performed all anthony parts of the procedure. Mr. Paul was the academic affairs assistant. There were no residents to assist with this case. Yoni Farfan MD, PhD, FACS Surgeon: Faizan Farfan MD Anesthesia: GETA, local and other (TAP block and 7ml Zynrelef) Was an Partition Making Machine Operator used for this Procedure?: Yes Partition Making Machine Operator: Prasad Paul Estimated blood loss (mL): 10 IV fluids (mL): 2,300 Urine output (mL): 0 (No Arellano to record output) Pathology: other (Stomach) Condition: stable Disposition: PACU
--- NOTE | 2023-11-14 11:22 | PM.PNGS ---
Subjective Subjective Date of Service: 11/15/23 Interval history: Feels well. Mild incisional pain. She is tolerating phase 1 bariatric diet Physical Exam Vital Signs: Vital Signs: Last Vital Signs Temp 97.2 F 11/14/23 10:20 Pulse 53 11/14/23 11:11 Resp 15 11/14/23 11:11 BP 115/67 11/14/23 11:11 Pulse Ox 97 11/14/23 11:11 O2 Del Method Nasal Cannula wit h Capnography 11/14/23 11:11 O2 Flow Rate 2 11/14/23 11:11 BMI result Body Mass Index 39.7 GI: Inspection: Yes normal to inspection, Yes incision (clean, dry and intact) and Yes obesity Palpation (GI): Soft to palpation Extrem: Right lower extremity: normal to inspection (no calf tenderness) Left lower extremity: normal to inspection (no calf tenderness) Objective Data Active Medications Albuterol Sulfate (Albuterol Sulfate (0.083%) 2.5 Mg/3 Ml Vial.Neb) 2.5 mg INHALE ONCE PRN PRN Reason: Shortness of Breath/Wheezing Albuterol/Ipratropium (Albuterol/Iprat 2.5/0.5mg 3 Ml Ampul.Neb) 3 ml INHALE ONCE PRN PRN Reason: Bronchospasm/wheezing Stop: 11/14/23 14:13 Fentanyl (Fentanyl Citrate/Pf 100 Mcg/2 Ml Vial) 25 mcg IVPUSH Q5M PRN PRN Reason: Pain, Moderate(Pain Scale 4-6) Stop: 11/14/23 14:12 Last Admin: 11/14/23 11:06 Dose: 25 mcg Documented By: JONNATHAN Hydromorphone HCl (Hydromorphone Hcl 0.5 Mg/0.5 Ml Syringe) 0.25 mg IVPUSH Q5M PRN PRN Reason: Pain, Severe (Pain Scale 7-10) Stop: 11/14/23 14:13 Last Admin: 11/14/23 10:57 Dose: 0.25 mg Documented By: JONNATHAN Lactated Ringer's (Lr) 1,000 mls @ 100 mls/hr IVCONT .Q10H MARY JO Last Admin: 11/14/23 06:14 Dose: 100 mls/hr Documented By: HO.DEHS Ondansetron HCl (Ondansetron Hcl 4 Mg/2 Ml Vial) 4 mg IVPUSH ONCE PRN PRN Reason: Nausea and Vomiting Stop: 11/14/23 14:13 Labs 11/15/23 05:33 11/15/23 05:33 Procedures Date of Service Date of Service: 11/15/23 Progress Note: A&P Assessment and plan (1) Morbid obesity: Status: Acute Assessment and Plan: s/p laparoscopic sleeve gastrectomy, lysis of adhesions and gastropexy Doing well Will check am labs and if OK the patient will be discharged home (2) GERD (gastroesophageal reflux disease): Status: Acute (3) Asthma: Status: Acute (4) Back pain: Status: Acute (5) Knee pain: Status: Acute (6) Steatosis, liver: Status: Acute (7) Intra-abdominal adhesions: Status: Acute (8) Congenital intra-abdominal adhesions: Status: Acute (9) S/P laparoscopic sleeve gastrectomy: Status: Acute Time Spent With Patient Time: Total time managing care of this patient today ____ minutes. Quality Stroke Does the patient have a stroke diagnosis?: No VTE Prior VTE?: No VTE Risk Level:: Surgical - moderate VTE Device Contraindication: Procedure Contraindicated VTE Drug Contraindication: Treatment Not Indicated
[2023-11-14 11:23] LABS: Anion Gap 15 (12-20); Blood Urea Nitrogen 10 mg/dL (9-16); Calcium 9.1 mg/dL (8.4-10.2); Carbon Dioxide 22 mmol/L (22-29); Chloride 105 mmol/L (96-108); Creatinine Clr Calc Pharmacy 132.4; Estimated Glomerular Filt Rate > 60; Glucose Random 84 mg/dL (60-115); Sodium 138 mmol/L (135-145)
[2023-11-14] MEDS: Acetaminophen 1,000 MG/100 ML PIGGYBACK 16.7 MG IV ×3 (12:56→20:05)
--- NOTE | 2023-11-14 17:44 | PC.NURSE ---
1610 pt crying in pain , pt states pain 10/10 jabbing in the mid abdomen . pt encouraged to walk , pt states pain to severe . This rn gave 0.25 iv dilaudid and instructed pt after medication administered to walk . 1630 pt ambulating in mora with good effect pt states pain much improved .
[2023-11-14] MEDS: Famotidine/PF 20 MG/2 ML VIAL IVPUSH (20:05)
[2023-11-14] MEDS: 0.9 % Sodium Chloride Flush 3 ML SYRINGE IVFLUSH (20:07)
[2023-11-15] VITALS: BP 110/62; PULSE 54; RESP 18; TEMP 36.6; O2SAT 93
[2023-11-15] MEDS: Acetaminophen 1,000 MG/100 ML PIGGYBACK 16.7 MG IV (03:49)
[2023-11-15 03:55] VITALS: BP 114/54; PULSE 51; RESP 18; TEMP 36.2; O2SAT 95
[2023-11-15 06:12] LABS: MANUAL DIFF FLAG NO
[2023-11-15 06:21] LABS: Basophils Percent Auto 0.2 % (0-2); Hematocrit 32.6 % (37.0-47.0); Hemoglobin 10.5 g/dl (12.0-16.0); Imm Gran Abs Auto 0.02 X10*3/uL (0.00-0.03); Imm Gran Pct Auto 0.4 % (0.0-0.4); Lymphocytes Absolute Auto 0.8 X10*3/uL (1.2-4.9); Lymphocytes Percent Auto 15.4 % (20-40); Mean Corpuscular HGB Conc 32.2 g/dl (31.0-35.0); Mean Corpuscular Hemoglobin 27.4 pg (27.0-33.0); Mean Corpuscular Volume 85.1 fL (80.0-98.0); Mean Platelet Volume 12.8 fL (9.4-12.3); Monocytes Absolute Auto 0.5 X10*3/uL (0.1-1.2); Monocytes Percent Auto 9.9 % (2-11); Neutrophils Absolute Auto 3.9 x10*3/uL (2.0-8.3); Neutrophils Percent Auto 74.1 % (45-73); Platelet Count 171 X10*3/uL (160-400); Red Blood Count 3.83 X10*6/uL (4.20-5.50); Red Cell Distribution Width 15.1 % (11.0-16.0); White Blood Count 5.3 X10*3/uL (4.8-10.8)
[2023-11-15 06:39] LABS: Anion Gap 17 (12-20); Blood Urea Nitrogen 6 mg/dL (9-16); Calcium 8.5 mg/dL (8.4-10.2); Carbon Dioxide 18 mmol/L (22-29); Chloride 106 mmol/L (96-108); Creatinine Clr Calc Pharmacy 156.1; Estimated Glomerular Filt Rate > 60; Glucose Random 79 mg/dL (60-115); Potassium 3.9 mmol/L (3.3-5.1); Sodium 137 mmol/L (135-145)
[2023-11-15 07:36] VITALS: O2SAT 95
[2023-11-15 08:00] VITALS: BP 110/65; PULSE 61; RESP 14; TEMP 36.4; O2SAT 97
--- NOTE | 2023-11-15 09:05 | HO.POSTANES ---
Post Anesthesia Evaluation Post Anesthesia Evaluation Date of Service: 11/15/23 Vital Signs: Vital Signs Temp Pulse Resp BP Pulse Ox O2 Del Method 11/15/23 08:00 97.5 F 61 14 110/65 97 Room Air 11/15/23 07:36 95 Room Air 11/15/23 03:55 97.1 F 51 18 114/54 L 95 Room Air 11/15/23 00:00 97.9 F 54 18 110/62 93 Room Air Anesthesia: General Endotracheal-GETA Mental Status: Awake Pain Control: Satisfactory Nausea/Vomiting: None Hydration: Adequate Anesthesia-Related Issues: No Anes. Related Issues
[2023-11-15] MEDS: Famotidine/PF 20 MG/2 ML VIAL IVPUSH (09:13)
--- NOTE | 2023-12-18 04:46 | PC.NURSE ---
Addendum entered by Kaleb Castillo RN 12/18/23 04:50: late entry for November 13 time 1579 Original Note: patient stated pain 6-7 and medicated with dilaudid and patient agreed to this medication
== END 2023-11-15 09:15 | disposition home or self-care (01) | DRG 403 ==
LOC: HO.SSSA 10:29 → HO.S3 10:52
PROVIDERS: Physician Assistant Surgical; Admitting Provider Surgery; PCP Internal Medicine; Visit Provider Surgery
PROC: 0DB64Z3 Excision of Stomach, Percutaneous Endoscopic Approach, Vertical (ICD-10-PCS; CPT 43845; principal; 2023-11-14 07:30)
DX: E66.01 Morbid (severe) obesity due to excess calories (principal); K76.0 Fatty (change of) liver, not elsewhere classified; Q43.3 Congenital malformations of intestinal fixation; J45.909 Unspecified asthma, uncomplicated; K21.9 Gastro-esophageal reflux disease without esophagitis; M54.9 Dorsalgia, unspecified; K22.70 Barrett's esophagus without dysplasia; Z68.41 Body mass index [BMI] 40.0-44.9, adult; Z87.891 Personal history of nicotine dependence; Z79.899 Other long term (current) drug therapy
CPT/HCPCS: 36415; 80048; 80053; 80061; 83036; 83525; 84443; 85014; 85018; 85025; 85610; 85730; 86140; 86850; 86900; 86901; 88304; 88305; 88307; 88342; A4649; C9088; C9145; J0131; J1100; J1170; J1956; J2250; J2405; J2704; J2795; J3010; J7120

== ENCOUNTER → 2023-11-14 05:49 | Outpatient (BNV) | payer OTHER, SELFPAY | PROVIDERS: Admitting Provider Surgery; PCP Internal Medicine; Visit Provider Surgery | DX: E66.01 Morbid (severe) obesity due to excess calories (principal); Z68.41 Body mass index [BMI] 40.0-44.9, adult; K66.0 Peritoneal adhesions (postprocedural) (postinfection); Z98.84 Bariatric surgery status | CPT/HCPCS: 43659; 43775; 99024; 99499 ==

== ENCOUNTER 2023-11-19 10:05 | Outpatient (AMB) | payer OTHER, SELFPAY ==
--- NOTE | 2023-11-19 10:54 | MHC.OFFVISWM ---
VS Expanded 11/19/23 11:08 BP 118/57 L Blood Pressure Location Rt brachial Blood Pressure Position Sitting Pulse 70 Pulse Source Pulse Oximeter Temp 97.5 F Temperature Source Tympanic Pulse Oximetry 93 Oxygen Delivery Method Room Air Height 5 ft 5 in Weight 230 lb 6.4 oz BMI 38.3 Body Fat % 45.9 Body Fat Mass 105.8 Fat Free Mass 124.6 Visceral Fat Rating 12.0 Body Water % 38.7 Body Water Mass 89.0 Muscle Mass/Score 118.2 Basal Metabolic Rate/Score 1,763 Intake Visit Reasons: (OV) PO LSG 11/14/23 Allergies Penicillins [PENICILLINS] Allergy (Unknown, Verified 11/19/23 11:20) BLACKED OUT HPI Comments Details: Patient is a pleasant 43-year-old female returns to the office today. She is 5 days status post sleeve gastrectomy performed on 11/14/2023. She is tolerating 3 pure protein shakes with half scoop each or 3 celebrate 4 in 1 with 1 scoop each in approximately 40-50 oz of fluids. She reports intermittent colicky type abdominal pain. She reports some loose stools, no dysuria. She has been ambulating without difficulty. [facility] Medical History Knee pain Back pain Asthma GERD (gastroesophageal reflux disease) Morbid obesity History of seizure Surgical History Hx of laparoscopy History of esophagogastroduodenoscopy (EGD) History of tonsillectomy and adenoidectomy Hx of bilateral salpingectomy Family History Maternal Grandfather Brain cancer Lung cancer Maternal Grandmother Lung cancer Social History Household Members: Family Household Members Other:: minor children Housing: House Are you a primary child care attendant to a significant other at home: Yes (minor children) Do you presently have visiting nurse or other home services: No Alcohol intake: current Alcohol intake frequency: holidays/special occasions only Patient Tobacco Use Status: Former Tobacco user Tobacco use type: Cigarette Cigarette Packs Per Day: 1 Cigarettes Per Day: 20 Years Smoked: 27 e-Cigarette/Vaping Use: Never Used Websupport service: No Current occupational status: unemployed Cognitive needs: No Hearing needs: No Vision needs: No Physical Exam GI Inspection: Yes incision (Clean, dry, intact.) Assessment & Plan Assessment & Plan (1) S/P laparoscopic sleeve gastrectomy: Code(s): Z98.84 - Bariatric surgery status Category: Surgical Plan: POD 5 s/p LSG on 11/14/[address] Farfan Weight loss prior to surgery was 32.7 pounds or 12.3 % TBWL. Original weight on 09/20/2023 was 264.2 pounds and op weight was 231.5 pounds. Be sure to text Dr Farfan exactly 1 week after surgery your weight from your home scale so he can adjust your meal plan. Continue meal plan until f/u w Prasad in 2 weeks May shower, no submersion in bath for another week Continue abdominal binder with activity and exercise for the next 2 weeks. Exercise prior to surgery was walking outdoors and may resume No abdominal exercises for 6 weeks post operatively Will be emailed link to post op video for review Reminded of the pace of drinking, 2 mL per minute, 1 oz/15 min. I suspect that her discomfort is GI related as she has been back and forth between the pure protein and the 4 in 1. I have encouraged her to take Tylenol regularly and continue to ambulate as she is able. We will have her follow-up in the office in several weeks.
[2023-11-19 11:08] VITALS: BP 118/57; PULSE 70; TEMP 36.4; O2SAT 93; BMI 38.3
== END 2023-11-19 11:20 | disposition home or self-care (01) ==
PROVIDERS: PCP Internal Medicine; Visit Provider Physician Assistant Surgical
DX: Z90.3 Acquired absence of stomach [part of] (principal); Z98.84 Bariatric surgery status
CPT/HCPCS: 99024

== ENCOUNTER → 2023-11-19 10:05 | Outpatient (BNVA) | payer OTHER, SELFPAY | PROVIDERS: PCP Internal Medicine; Visit Provider Physician Assistant Surgical | DX: E66.9 Obesity, unspecified (principal); R10.9 Unspecified abdominal pain; R19.7 Diarrhea, unspecified; Z68.38 Body mass index [BMI] 38.0-38.9, adult; Z98.84 Bariatric surgery status | CPT/HCPCS: 99212 ==

== ENCOUNTER 2023-11-22 09:18 | Outpatient (REF) | payer OTHER, SELFPAY | END 2023-11-22 09:19 | disposition home or self-care (01) | LOC: HO.XRAY 09:18 | PROVIDERS: PCP Internal Medicine; Visit Provider Surgery | DX: Z13.89 Encounter for screening for other disorder (principal) ==

== ENCOUNTER 2023-12-02 09:21 | Outpatient (AMB) | payer OTHER, SELFPAY ==
--- NOTE | 2023-12-02 09:45 | A.OFFVIS_ITS ---
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 She traveled from the hospital office with her youngest child and is upset about being directed to the wrong office this morning. She has her. And declines a pelvic exam she says she has not been sexually active and does not need STI testing anyway her Pap smear was negative last year. She gets periods about monthly sometimes they are a little bit late or little bit early but they come monthly they last 5-6 days her periods started yesterday. She has her mammogram scheduled for a month or 2 from now. She has her primary care visit scheduled for next week She recently had the lap band surgery and she has lost weight. most of it she lost before the surgery. she is still healing from the surgery and she can not eat and that is annoying her. She consented to breast exam [facility] Medical History Knee pain Back pain Asthma GERD (gastroesophageal reflux disease) Morbid obesity History of seizure Surgical History Hx of laparoscopy History of esophagogastroduodenoscopy (EGD) History of tonsillectomy and adenoidectomy Hx of bilateral salpingectomy Family History Maternal Grandfather Brain cancer Lung cancer Maternal Grandmother Lung cancer Social History Household Members: Family Household Members Other:: minor children Housing: House Are you a primary neonatal critical care nurse to a significant other at home: Yes (minor children) Do you presently have visiting nurse or other home services: No Alcohol intake: current Alcohol intake frequency: holidays/special occasions only Patient Tobacco Use Status: Former Tobacco user Tobacco use type: Cigarette Cigarette Packs Per Day: 1 Cigarettes Per Day: 20 Years Smoked: 27 e-Cigarette/Vaping Use: Never Used service: No Current occupational status: unemployed Cognitive needs: No Hearing needs: No Vision needs: No Female Reproductive History Menstrual Age of Menarche: 13 Duration of menses: 6-7 days Date of last menstrual period: 12/01/23 control method: permanent sterilization Total pregnancies: 10 Full term: 7 Date of last pap smear: 11/28/22 (neg.) Date of Mammogram: 01/17/23 (probably benign finding) Physical Exam Const Other: Patient has a abdominal scars from her gastric surgery healing well she has various moles including a large 1 on her breast. She says it has been checked and they it because they say it is cosmetic she also has 1 on her lower abdomen that she says she was told the same thing for they appear very different. Breast exam was otherwise within limits no masses palpated no dimpling.. She declined pelvic exam today. General: healthy appearing, comfortable, no acute distress, well developed and alert Nutritional Appearance: average body habitus Orientation/consciousness: patient oriented x3 Limitations: no limitations HEENT Head: Yes normocephalic Neck Neck: Yes normal visual inspection Chest Chest palpation & inspection: normal inspection of the chest Breast/axilla inspection: normal inspection of the breasts and normal inspection of the axillae Breast/axilla palpation: normal palpation of the breasts and normal palpation of the axillae Resp Effort & Inspection: normal respiratory effort GI Inspection: Yes normal to inspection, No Abdominal wall edema and No distended Palpation (GI): Soft to palpation and nontender Neuro General: patient oriented x3 Results Reviewed Results Reviewed: Name: Meera Kidd Age/Sex: 42/F Attending: Christie Maldonado CNM : 1980 Submitted by: Christie Maldonado CNM Copies to: Omer Whitney MD MR #: [id number] Status: DEP REF Collected: 11/28/22 Location: [facility] Received: 11/29/22 Interpretation Satisfactory for evaluation. Negative for intraepithelial lesion or malignancy. HPV mRNA E6/E7: NOT DETECTED This assay detects E6/E7 viral messenger RNA (mRNA) from 14 high-risk HPV types (16, 18, 31, 33, 35, 39, 45, 51, 52, 56, 58, 59, 66, 68) HPV testing performed by [facility], [place], [place]. See reference laboratory pion of the EMR for entire report. Clinical Information LMP: 11/14/22 Previous PAP test: Unknown date/findings Material Received ThinPrep-Cervical Copies To Omer Whitney MD 1959 [facility] [place] [address] [place] [address] Electronically Signed By: ELODIA Jonas (ASC) 12/12/22 3071 The Pap Test is a screening procedure with the inherent possibility of both false negative and false positive results. Results should be interpreted in the context of historic and current clinical findings. Reliability of the Pap Test is enhanced by performing the test on a regular repetitive basis. Patient: Meera Kidd [facility]: 42[id number] MR#: [id number] Page 1 of 1 Assessment & Plan Assessment & Plan (1) S/P laparoscopic sleeve gastrectomy: Code(s): Z98.84 - Bariatric surgery status Category: Surgical (2) Breast cancer screening: Code(s): Z12.39 - Encounter for other screening for malignant neoplasm of breast Category: Medical (3) Cervical cancer screening: Comment: Patient cervix has the appearance of having had a LEEP. Patient has no memory of past Pap history.11/28/2022 Pap is negative with negative HPV. Code(s): Z12.4 - Encounter for screening for malignant neoplasm of cervix Category: Medical (4) Well woman exam (no gynecological exam): Code(s): Z00.00 - Encounter for general adult medical examination without abnormal findings Category: Medical Plan -----Discussed in this visit the following: healthy balanced diet, regular and consistent exercise, getting recommended health screens, doing the best she can for her particular health concerns, kegel exercises, pap smear screening and followup recommendations, mammography screening and SBE, normal changes in cycles in her life stage--- . I apologize for the office mixed up resulting in her having gone to the wrong office site Reviewed her schedule plans for mammogram primary care visits and the follow-up for her gastric bypass surgery. I congratulated her on her hard 1 weight loss so far and suggested that hopefully she will feel better soon. Reviewed safer sex. She is not sexually active now and while she does not like condoms and would not use them she would intend to have any potential partner get checked for all STDs before she would be intimate. Her Pap smear last year was negative with negative HPV. Her periods are regular and she has no other concerns at this time RTC 1 year. Coding Level of Care Code Est Pt Prev Care 40-64y(16620) Diagnoses S/P laparoscopic sleeve gastrectomy Z98.84 Breast cancer screening Z12.39 Cervical cancer screening Z12.4 Well woman exam (no gynecological exam) Z00.00
[2023-12-02 09:52] VITALS: BP 116/68; BMI 37.6
== END 2023-12-02 10:13 | disposition home or self-care (01) ==
PROVIDERS: PCP Internal Medicine; Visit Provider Advanced Practice Midwife
DX: Z01.419 Encounter for gynecological examination (general) (routine) without abnormal findings (principal)
CPT/HCPCS: 99396

== ENCOUNTER → 2023-12-02 09:21 | Outpatient (BNVA) | payer OTHER, SELFPAY | PROVIDERS: PCP Internal Medicine; Visit Provider Advanced Practice Midwife | DX: Z12.4 Encounter for screening for malignant neoplasm of cervix (principal); Z12.39 Encounter for other screening for malignant neoplasm of breast; Z98.84 Bariatric surgery status; Z00.00 Encounter for general adult medical examination without abnormal findings | CPT/HCPCS: 99396 ==

== ENCOUNTER 2023-12-03 14:49 | Outpatient (AMB) | payer OTHER, SELFPAY ==
--- NOTE | 2023-12-03 14:49 | MHC.OFFVISWM ---
VS Expanded 12/03/23 14:55 BP 109/54 L Blood Pressure Location Rt brachial Blood Pressure Position Sitting Pulse 74 Pulse Source Pulse Oximeter Temp 97.1 F Temperature Source Temporal Artery Scan Pulse Oximetry 94 Oxygen Delivery Method Room Air Height 5 ft 5 in Weight 220 lb BMI 36.6 Body Fat % 43.7 Body Fat Mass 96.2 Fat Free Mass 123.6 Visceral Fat Rating 11.0 Body Water % 40.2 Body Water Mass 88.4 Muscle Mass/Score 117.6 Basal Metabolic Rate/Score 1,736 Intake Visit Reasons: (OV) PO LSG 11/14/23 Allergies Penicillins [PENICILLINS] Allergy (Unknown, Verified 12/03/23 14:58) BLACKED OUT HPI Comments Details: This?a?43?yo female who is s/p LSG without hiatal hernia repair on?11/14/2023. Presents for 3 week post op visit. Weight today is 220 pounds, with a BMI of 36.6. There has been a 44.2 pound weight loss,(initial weight 264.2 pounds) since starting the program on 09/20/2023 reflecting a 16.7 % total body weight loss and a weight loss of 11.5 pounds since surgery (operative weight 231.5 pounds) reflecting a 4.9 % TBWL since surgery. No complaints of nausea, emesis, abdominal pain or reflux. Reports she has tried multiple shake products including including celebrate 4 in 1, pure protein, Atkins, in several different formula berries including powder and ready to drink formulary. She has had an intolerance to them. She has tried pure protein and Atkins protein bars and did not like them. She has not tried the celebrate protein bar. She has not tried isopure protein shake. She states that she has been drinking approximately 50-55 oz of fluids including Gatorade zero and water with crystal light. She has not had any protein supplements in the last 1 week. Original weight on 09/20/2023 was 264.2 pounds and op weight was 231.5 pounds. Present meal plan includes: none Exercise plan walking outside 200-270 kayce per day [facility] Medical History Knee pain Back pain Asthma GERD (gastroesophageal reflux disease) Morbid obesity History of seizure Surgical History Hx of laparoscopy History of esophagogastroduodenoscopy (EGD) History of tonsillectomy and adenoidectomy Hx of bilateral salpingectomy Family History Maternal Grandfather Brain cancer Lung cancer Maternal Grandmother Lung cancer Social History Household Members: Family Household Members Other:: minor children Housing: House Are you a primary small animal caretaker to a significant other at home: Yes (minor children) Do you presently have visiting nurse or other home services: No Alcohol intake: current Alcohol intake frequency: holidays/special occasions only Patient Tobacco Use Status: Former Tobacco user Tobacco use type: Cigarette Cigarette Packs Per Day: 1 Cigarettes Per Day: 20 Years Smoked: 27 e-Cigarette/Vaping Use: Never Used service: No Current occupational status: unemployed Cognitive needs: No Hearing needs: No Vision needs: No Female Reproductive History Menstrual Age of Menarche: 13 Physical Exam Const General: healthy appearing and no acute distress Resp Effort & Inspection: normal respiratory effort Auscultation: clear to auscultation bilaterally Cardio Rate: regular rate Rhythm: regular rhythm GI Auscultation: normal bowel sounds Extrem General: Yes normal to inspection Assessment & Plan Assessment & Plan (1) S/P laparoscopic sleeve gastrectomy: Code(s): Z98.84 - Bariatric surgery status Category: Surgical Plan: Patient continues to take celebrate chewable multivitamin. She has not had any protein supplement in 1 week per her report. I have recommended she go immediately to the gift shop to get a celebrate protein bar as well as a celebrate protein water. I have additionally instructed her to purchase isopure infusion powder, 1 scoop mixed in 8 oz of water which she will trial tomorrow. She will text me tomorrow with her opinion on if she likes these products at which point I will give her a new meal plan. I emphasized the critical nature of taking protein, she understood
[2023-12-03 14:55] VITALS: BP 109/54; PULSE 74; TEMP 36.2; O2SAT 94; BMI 36.6
== END 2023-12-03 15:21 | disposition home or self-care (01) ==
PROVIDERS: PCP Internal Medicine; Visit Provider Physician Assistant Surgical
DX: Z98.84 Bariatric surgery status (principal)
CPT/HCPCS: 99024

== ENCOUNTER → 2023-12-03 14:49 | Outpatient (BNVA) | payer OTHER, SELFPAY | PROVIDERS: PCP Internal Medicine; Visit Provider Physician Assistant Surgical | DX: E66.9 Obesity, unspecified (principal); Z68.36 Body mass index [BMI] 36.0-36.9, adult; Z90.3 Acquired absence of stomach [part of] | CPT/HCPCS: 99212 ==

== ENCOUNTER 2023-12-04 13:24 | Outpatient (AMB) | payer OTHER, SELFPAY ==
[2023-12-04 13:25] VITALS: BP 122/78; PULSE 51; O2SAT 96; BMI 37.3
--- NOTE | 2023-12-04 13:25 | MHC.PC.OV ---
Vital Signs 12/04/23 13:25 Height 5 ft 5 in Weight 224 lb 2 oz BMI 37.3 BP 122/78 Blood Pressure Location Lt brachial Position Sitting Pulse 51 Pulse Source Pulse Oximeter Pulse Oximetry (%) 96 Oxygen Delivery Method Room Air Intake Visit Reasons: annual Exam Allergies Penicillins [PENICILLINS] Allergy (Unknown, Verified 12/04/23 13:31) BLACKED OUT Medication List - Last Reconciled 12/04/23 by Omer Whitney MD pantoprazole 40 mg PO DAILY@629 sucralfate 10 mL PO BID Tobacco use date assessed: 12/04/23 Dental Screening Dental Screen Date: 12/04/23 Did you have a dental visit in the last 12 months?: No Did you have a dental problem in the last 6 months where you did not have access to dental care?: No Was dental information given to patient?: No HPI annual Exam HPI Details Patient is a 43-year-old female came in for physical exam Mammogram will be in January of this year OBGYN appointment up-to-date at [facility] Patient a lap band surgery of this month she is doing well Offer no complaints Breast exam through OBGYN [facility] Medical History Knee pain Back pain Asthma GERD (gastroesophageal reflux disease) Morbid obesity History of seizure Surgical History Hx of laparoscopy History of esophagogastroduodenoscopy (EGD) History of tonsillectomy and adenoidectomy Hx of bilateral salpingectomy Family History Maternal Grandfather Brain cancer Lung cancer Maternal Grandmother Lung cancer Social History Household Members: Family Household Members Other:: minor children Housing: House Are you a primary resident care spec to a significant other at home: Yes (minor children) Do you presently have visiting nurse or other home services: No Alcohol intake: current Alcohol intake frequency: holidays/special occasions only Patient Tobacco Use Status: Former Tobacco user Tobacco use type: Cigarette Cigarette Packs Per Day: 1 Cigarettes Per Day: 20 Years Smoked: 27 Packs Per Year: 27 Packs per year/per ci.00 e-Cigarette/Vaping Use: Never Used service: No Current occupational status: unemployed Cognitive needs: No Hearing needs: No Vision needs: No Female Reproductive History Menstrual Age of Menarche: 13 Questionnaire PHQ-9 Over the last 2 weeks, how often have you been bothered by any of the following problems? 1. Little interest or pleasure in doing things: not at all 2. Feeling down, depressed, or hopeless: not at all 3. Trouble falling or staying asleep, or sleeping too much: not at all 4. Feeling tired or having little energy: not at all 5. Poor appetite or overeating: not at all 6. Feeling bad about yourself - or that you are a failure or have let yourself or your family down: not at all 7. Trouble concentrating on things, such as reading the newspaper or watching television: several days 8. Moving or speaking so slowly that other people could have noticed. Or the opposite - being so fidgety or restless that you have been moving around a lot more than usual: not at all 9. Thoughts that you would be better off or of hurting yourself in some way: not at all Total score: 1 Depression Screening Interpretation: Negative Depression Screening Done: Yes 32701 - PHQ-9 Billing: Yes Source: Developed by Drs. Al Neil, Jane Engle, Aj Miles and colleagues, with an educational andreea from [employer]. Thrive Questionnaire Date Thrive assessed: 12/04/23 I am a: Patient What is your living situation today?: I have a steady place to live Within the past 12 months, did the food you bought not last and you didn't have the money to get more?: Never true Within the past 12 months, did you worry whether your food would run out before you got money to buy more?: Never true Do you have trouble paying for medicines?: No Do you have trouble getting transportation to medical appointments?: No Do you have trouble paying your heating and electricity bill?: No Do you have trouble taking care of your child, family member or friend?: No Do you have trouble with day-to-day activities such as bathing, preparing meals, shopping, managing finances, etc.?: No Are you currently unemployed and looking for a job?: Yes Are you interested in more education?: No Please select the resources that you would like help with: Housing/Skilled Nursing Currently or been in a relationship where the following occur: I choose not to answer THRIVE Score: 0 AUDIT C Alcohol Use Questionnaire (AUDIT-C) 1. How often do you have a drink containing alcohol?: Never 3. How often do you have six or more drinks on one occasion?: Never Total Score: 0 Score Reviewed/Action Taken: Yes SANTO-7 AMB Questionnaire SANTO-7 Date SANTO - 7 assessed: 12/04/23 Feeling nervous, anxious, or on edge: 0 = Not at all Not being able to stop or control worryin = Not at all Worrying too much about different things: 0 = Not at all Trouble relaxin = Not at all Being so restless that it is hard to sit still: 0 = Not at all Becoming easily annoyed or irritable: 0 = Not at all Feeling afraid as if something awful might happen: 0 = Not at all Total SANTO-7 score (0-4 normal; 5-9 mild; 10-14 moderate; 15-21 severe): 0 Source: Developed by Drs. Al Neil, Jane Engle, Aj Miles and colleagues, with an educational andreea from [employer]. SANTO-7 Assessment Billing SANTO-7 Assessment Tool: SANTO-7 Assessment 25641 Review of Systems Const Denies chills, Denies fever(s) and Denies headache(s) Eyes Denies blurry vision ENT Denies headache(s), Denies nasal discharge, Denies nasal obstruction, Denies odynophagia and Denies sinus pain Card Denies chest pain at rest and Denies chest pain with activity Resp Denies cough and Denies hemoptysis GI Denies diarrhea, Denies odynophagia, Denies vomiting and Denies hematemesis Reports as per HPI Musc Denies abnormal gait Skin/Breast Reports as per HPI Neuro Denies Neuro-related abnormal movements, Denies Abnormal speech present, Denies abnormal gait, Denies headache(s) and Denies Sensory deficit (Neuro) Psych Denies mood swings and Denies paranoia Endo Reports as per HPI Xander/Lymph Reports as per HPI Aller/Immun Reports as per HPI Physical exam (Primary Care) Vital Signs: Last Vital Signs Pulse 51 12/04/23 13:25 BP 122/78 12/04/23 13:25 Pulse Ox 96 12/04/23 13:25 Oxygen Delivery Method Room Air 12/04/23 13:25 BMI result Body Mass Index 37.3 Tobacco/Smoking Status: Tobacco use Status Tobacco use date assessed 12/04/23 12/04/23 13:32 Patient Tobacco Use Status Former Tobacco user 12/04/23 13:25 Tobacco use type Cigarette 12/04/23 13:25 e-Cigarette/Vaping Use Never Used 12/04/23 13:25 PHQ-9: PHQ-9 Score PHQ-9: Total score 1 12/04/23 13:32 Depression Screening Interpretation: Negative Thrive Assessment: Date of Thrive Assessment Date Thrive assessed 12/04/23 12/04/23 13:32 Currently or been in a relationship where the following occur: I choose not to answer Const General: cooperative, comfortable and no acute distress Orientation/consciousness: patient oriented x3 HENMT Head: Yes normocephalic and Yes atraumatic Eyes General: appearance normal, both eyes and all related structures Pupils: Equal, round and reactive pupils present EOM: EOMs intact bilaterally Neck Neck: Yes supple and No lymphadenopathy Thyroid: Thyroid normal Lymphatic: no lymphadenopathy noted Resp Effort & Inspection: normal respiratory effort and able to speak in complete sentences Auscultation: clear to auscultation bilaterally Cardio Heart sounds: S1 normal heart sound present and S2 normal heart sound present GI Palpation (GI): Soft to palpation and nontender Auscultation: normal bowel sounds General: Yes no CVA tenderness Back/Spine/Pelvis Back: no CVA tenderness Skin General skin exam: elasticity normal and turgor normal Neuro General: patient oriented x3 and gait normal Cranial nerves: Yes Equal, round and reactive pupils present Speech: No Abnormal speech present Sensory Exam: No Sensory deficit (Neuro) Coordination: tandem gait normal and Romberg test negative Extrem General: Yes normal exam except as noted and No edema Assessment and Plan Assessment & Plan (1) Annual physical exam: Code(s): Z00.00 - Encounter for general adult medical examination without abnormal findings Plan Patient is a 43-year-old female came in for physical exam Mammogram will be in January of this year OBGYN appointment up-to-date at [facility] Patient a lap band surgery 11th of this month she is doing well Offer no complaints Breast exam through OBGYN Coding Level of Care Code Est Pt Prev Care 40-64y(44019) Diagnoses Annual physical exam Z00.00 Additional Codes SANTO-7 Assessment Billing - SANTO-7 Assessment Tool: SANTO-7 Assessment [id number] ([id number])
== END 2023-12-04 13:57 | disposition home or self-care (01) ==
PROVIDERS: PCP Internal Medicine; Visit Provider Internal Medicine
DX: Z00.00 Encounter for general adult medical examination without abnormal findings (principal)
CPT/HCPCS: 99396

== ENCOUNTER 2023-12-25 14:56 | Outpatient (AMB) | payer OTHER, SELFPAY ==
--- NOTE | 2023-12-25 14:57 | MHC.OFFVISWM ---
VS Expanded 12/25/23 15:04 BP 121/56 L Blood Pressure Location Rt brachial Blood Pressure Position Sitting Pulse 84 Pulse Source Pulse Oximeter Temp 97.0 F Temperature Source Temporal Artery Scan Pulse Oximetry 95 Oxygen Delivery Method Room Air Height 5 ft 5 in Weight 209 lb 12.8 oz BMI 34.9 Body Fat % 44.0 Body Fat Mass 92.2 Fat Free Mass 117.6 Visceral Fat Rating 10.0 Body Water % 40.1 Body Water Mass 84.0 Muscle Mass/Score 111.6 Basal Metabolic Rate/Score 1,652 Intake Visit Reasons: (OV) PO LSG 11/14/23 Allergies Penicillins [PENICILLINS] Allergy (Unknown, Verified 12/25/23 15:03) BLACKED OUT HPI Comments Details: This?a?43?yo female who is s/p LSG without hiatal hernia repair on?11/14/2023. Presents for 6 week post op visit. Weight today is 209.8 pounds, with a BMI of 34.9. There has been a 54.4 pound weight loss,(initial weight 264.2 pounds) since starting the program on 09/20/2023 reflecting a 20.5 % total body weight loss and a weight loss of 21.7 pounds since surgery (operative weight 231.5 pounds) reflecting a 9.3 % TBWL since surgery. No complaints of nausea, emesis, abdominal pain or reflux. Taking celebrate mvi SHe had last communicated with me 12/04/23. She had been texting w Dr Diaz, last time was to report weight last week. 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 She states she has not been following a meal plan from our office. She has been getting advice from a friend who had surgery at another program 15 years ago. She has been using vitamin water zero sugar. She has been using 1 protein chip per 20 min(19 gr) per package, she is having 1-3 packages per day. She has tried mongolian yogurt without difficulty. She tried HB egg and tolerated it over 30 min. She tried one scoop of one isopure shake and didn't like it so she states she is not willing to try any other isopure product. Reports she has tried multiple shake products including including celebrate 4 in 1, pure protein, Atkins, in several different formula berries including powder and ready to drink formulary. She has had an intolerance to them. She has tried pure protein and Atkins protein bars and did not like them. She has not tried the celebrate protein bar. She has not tried isopure protein shake. Present meal plan includes: 1-3 packages of Atikins protein chips 19 gm each package most of a mongolian drinking 60 oz water Exercise plan walking outside, 1-2 days per week, 200-270 kayce per day PFSH Medical History Knee pain Back pain Asthma GERD (gastroesophageal reflux disease) Morbid obesity History of seizure Surgical History Hx of laparoscopy History of esophagogastroduodenoscopy (EGD) History of tonsillectomy and adenoidectomy Hx of bilateral salpingectomy Family History Maternal Grandfather Brain cancer Lung cancer Maternal Grandmother Lung cancer Social History Household Members: Family Household Members Other:: minor children Housing: House Are you a primary director of patient care to a significant other at home: Yes (minor children) Do you presently have visiting nurse or other home services: No Alcohol intake: current Alcohol intake frequency: holidays/special occasions only Patient Tobacco Use Status: Former Tobacco user Tobacco use type: Cigarette Cigarette Packs Per Day: 1 Cigarettes Per Day: 20 Years Smoked: 27 e-Cigarette/Vaping Use: Never Used service: No Current occupational status: unemployed Cognitive needs: No Hearing needs: No Vision needs: No Female Reproductive History Menstrual Age of Menarche: 13 Physical Exam Const General: healthy appearing and no acute distress Resp Effort & Inspection: normal respiratory effort Auscultation: clear to auscultation bilaterally Cardio Rate: regular rate Rhythm: regular rhythm GI Auscultation: normal bowel sounds Extrem General: Yes normal to inspection Assessment & Plan Assessment & Plan (1) S/P laparoscopic sleeve gastrectomy: Code(s): Z98.84 - Bariatric surgery status Category: Surgical Plan: Patient has tried multiple protein shakes and protein bars and is not going to use them. We will have her use and eat and drink foods and fluids that she has tolerated so far and is willing to do. Including Atkins chips, 19 g per package, x2, she may try 2 forks of cooked vegetables, broccoli, cauliflower, green beans. She may try ratio protein yogurt, 25 g or pro yogurt 20 g, 1 scrambled egg. We will have her return to the office in approximately 1 month. Encouraged to text weekly. Encouraged to increase exercise.
[2023-12-25 15:04] VITALS: BP 121/56; PULSE 84; TEMP 36.1; O2SAT 95; BMI 34.9
== END 2023-12-25 15:29 | disposition home or self-care (01) ==
PROVIDERS: PCP Internal Medicine; Visit Provider Physician Assistant Surgical
DX: Z98.84 Bariatric surgery status (principal)
CPT/HCPCS: 99024

== ENCOUNTER → 2023-12-25 14:56 | Outpatient (BNVA) | payer OTHER, SELFPAY | PROVIDERS: PCP Internal Medicine; Visit Provider Physician Assistant Surgical | DX: E66.01 Morbid (severe) obesity due to excess calories (principal); Z71.3 Dietary counseling and surveillance; Z98.84 Bariatric surgery status; Z68.34 Body mass index [BMI] 34.0-34.9, adult | CPT/HCPCS: 99212 ==

== ENCOUNTER 2024-01-27 09:21 | Outpatient (AMB) | payer OTHER, SELFPAY ==
--- NOTE | 2024-01-27 09:31 | MHC.OFFVISWM ---
VS Expanded 01/27/24 09:38 BP 110/67 Blood Pressure Location Rt brachial Blood Pressure Position Sitting Pulse 57 Pulse Source Pulse Oximeter Temp 96.0 F L Temperature Source Temporal Artery Scan Pulse Oximetry 95 Oxygen Delivery Method Room Air Height 5 ft 5 in Weight 198 lb 12.8 oz BMI 33.1 Body Fat % 42.1 Body Fat Mass 83.6 Fat Free Mass 115.0 Visceral Fat Rating 9.0 Body Water % 41.4 Body Water Mass 82.2 Muscle Mass/Score 109.4 Basal Metabolic Rate/Score 1,608 Intake Visit Reasons: (OV) PO LSG 11/14/23 Allergies Penicillins [PENICILLINS] Allergy (Unknown, Verified 01/27/24 09:32) BLACKED OUT HPI Comments Details: This?a?43?yo female who is s/p LSG without hiatal hernia repair on?11/14/2023. Presents for 2 months post op visit. Weight today is 198.8 pounds, with a BMI of 33.1. There has been a 65.4 pound weight loss,(initial weight 264.2 pounds) since starting the program on 09/20/2023 reflecting a 24.7 % total body weight loss and a weight loss of 32.7 pounds since surgery (operative weight 231.5 pounds) reflecting a 14.1 % TBWL since surgery. No complaints of nausea, emesis, abdominal pain or reflux. Taking celebrate mvi She states she has been feeling unwell for the last 2 weeks although has not communicated this with anybody. She reports feeling like food is stuck, specifically scrambled eggs. She would then have some ice tea approximately a 1/2 hour later and then vomit. She reports tolerating fluids without difficulty. She is walking on a daily basis. 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 Not going to drink milk (doesn't like it-any milk), Doesn't like any previous tolerated protein products. She states she does not like yogurt anymore. Present meal plan includes: 1-3 packages of Atikins protein chips 19 gm each package most of a italian drinking 60 oz water Exercise plan walking outside, 1-2 days per week, 200-270 akyce per day [facility] Medical History Knee pain Back pain Asthma GERD (gastroesophageal reflux disease) Morbid obesity History of seizure Surgical History (Updated 01/27/24 @ 09:41 by Tina Dennis [facility]) Hx of laparoscopic partial gastrectomy Hx of laparoscopy History of esophagogastroduodenoscopy (EGD) History of tonsillectomy and adenoidectomy Hx of bilateral salpingectomy Family History Maternal Grandfather Brain cancer Lung cancer Maternal Grandmother Lung cancer Social History Household Members: Family Household Members Other:: minor children Housing: House Are you a primary certified social workers in health care to a significant other at home: Yes (minor children) Do you presently have visiting nurse or other home services: No Alcohol intake: current Alcohol intake frequency: holidays/special occasions only Patient Tobacco Use Status: Former Tobacco user Tobacco use type: Cigarette Cigarette Packs Per Day: 1 Cigarettes Per Day: 20 Years Smoked: 27 e-Cigarette/Vaping Use: Never Used service: No Current occupational status: unemployed Cognitive needs: No Hearing needs: No Vision needs: No Female Reproductive History Menstrual Age of Menarche: 13 Physical Exam Const General: healthy appearing, no acute distress and well developed Nutritional Appearance: well nourished GI Palpation (GI): Soft to palpation and nontender Auscultation: normal bowel sounds Assessment & Plan Assessment & Plan (1) S/P laparoscopic sleeve gastrectomy: Code(s): Z98.84 - Bariatric surgery status Category: Surgical Plan: Patient is having decreased p.o. intake although appears well. Vital signs were stable. I have encouraged her to use isopure on flavored, 1 scoop in 10 oz of water/Gatorade/sugar free ice tea, (as these were the fluids that she is tolerating without difficulty), x2. Also encouraged 4 forks of dark meat chicken, weight me chicken, 4 forks of cooked vegetables. Discussed the importance of communication as this directly relates to her health. She will follow up in the office in 3-4 weeks
[2024-01-27 09:38] VITALS: BP 110/67; PULSE 57; TEMP 35.6; O2SAT 95; BMI 33.1
== END 2024-01-27 10:00 | disposition home or self-care (01) ==
PROVIDERS: PCP Internal Medicine; Visit Provider Physician Assistant Surgical
DX: Z98.84 Bariatric surgery status (principal)
CPT/HCPCS: 99024

== ENCOUNTER → 2024-01-27 09:21 | Outpatient (BNVA) | payer OTHER, SELFPAY | PROVIDERS: PCP Internal Medicine; Visit Provider Physician Assistant Surgical | DX: E66.01 Morbid (severe) obesity due to excess calories (principal); Z71.3 Dietary counseling and surveillance; Z98.84 Bariatric surgery status; Z68.33 Body mass index [BMI] 33.0-33.9, adult | CPT/HCPCS: 99212 ==

== ENCOUNTER 2024-03-04 10:26 | Outpatient (REF) | payer OTHER, SELFPAY ==
--- NOTE | ~2024-03-04 | MM_ITS ---
EXAMINATION: MM DIAGNOSTIC DIGITAL BREAST TOMOSYNTHESIS, right breast follow up diagnostic left breast annual. CLINICAL INFORMATION: 1 year follow-up for asymmetry in the superior right breast on MLO view without sonographic correlate. COMPARISON: Mammography: Comparison is made with relevant prior exams. TECHNIQUE: Digital breast mammography with tomosynthesis is performed in both the craniocaudal and mediolateral oblique views along with computer-aided detection (CAD). FINDINGS: There are scattered areas of fibroglandular density (ACR BI-RADS breast composition Category b). Left: There are no significant masses, abnormal calcifications, or other abnormalities. Right: Asymmetry superior right breast MLO view posterior depth is not significantly changed from priors. No prior sonographic correlate was seen. No suspicious calcifications or other abnormal findings. Results are provided to the patient at time of visit by the technologist. MM/MM tomosynthesis diagnostic BI IMPRESSION: There are no significant changes from prior study. Left: Negative. Right: Asymmetry superior right breast on MLO view without prior sonographic correlate is stable for one year. Recommend follow-up diagnostic mammogram in one year to demonstrate 2 years of stability when the patient is due for bilateral mammography. ASSESSMENT: BI-RADS BI-RADS 3 - Probably benign finding(s) - 12 month follow-up suggested RECOMMENDATION: 12 month diagnostic follow up This patient's information was entered into a reminder system with a target due date for their next mammogram. Electronically signed by: Janee Siegel DO 03/04/2024 11:03 AM EDT
== END 2024-03-04 10:27 | disposition home or self-care (01) ==
LOC: HO.MAMMO 10:26
PROVIDERS: PCP Internal Medicine; Visit Provider Internal Medicine
DX: R92.2 Inconclusive mammogram (principal)
CPT/HCPCS: 77062; 77066

== ENCOUNTER → 2024-03-04 10:30 | Outpatient (BNV) | payer OTHER, SELFPAY | PROVIDERS: PCP Internal Medicine; Visit Provider Internal Medicine | DX: R92.8 Other abnormal and inconclusive findings on diagnostic imaging of breast (principal) | CPT/HCPCS: 77061; 77065 ==

== ENCOUNTER 2024-03-05 10:59 | Outpatient (AMB) | payer OTHER, SELFPAY ==
--- NOTE | 2024-03-05 11:05 | A.OFFVIS_ITS ---
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 Presents for 3 months post op visit. Weight today is 192.6 pounds, with a BMI of 32. There has been a 71.6 pound weight loss,(initial weight 264.2 pounds) since starting the program on 09/20/2023 reflecting a 27.1 % total body weight loss and a weight loss of 38.9 pounds since surgery (operative weight 231.5 pounds) reflecting a 16.8 % TBWL since surgery. No complaints of nausea, emesis, abdominal pain or reflux. Taking celebrate mvi She states she has been feeling unwell for the last 2 weeks although has not communicated this with anybody. She reports feeling like food is stuck, specifically scrambled eggs. She would then have some ice tea approximately a 1/2 hour later and then vomit. She reports tolerating fluids without difficulty. She is walking on a daily basis. 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 She states she stopped the isopure shakes after 2 days and did not discuss that with the office. She changed the meal plan without any formal guidance. She started a MVI, chiobani yogurt x 1, vegetables, 1 scram egg 2 x per week, 60 -80 oz water. Tolerated fish, chicken thigh, shrimp, cheese, Present meal plan includes: 2 isopure shakes, 1 scoop in 10 oz water or gatorade zero 4 forks protein and 4 forks cooked veg drinking 60 oz water Exercise plan walking outside, 7 days per week, 300-400 kayce per day [facility] Medical History Knee pain Back pain Asthma GERD (gastroesophageal reflux disease) Morbid obesity History of seizure Surgical History Hx of laparoscopic partial gastrectomy Hx of laparoscopy History of esophagogastroduodenoscopy (EGD) History of tonsillectomy and adenoidectomy Hx of bilateral salpingectomy Family History Maternal Grandfather Brain cancer Lung cancer Maternal Grandmother Lung cancer Social History Household Members: Family Household Members Other:: minor children Housing: House Are you a primary healthcare administration internship to a significant other at home: Yes (minor children) Do you presently have visiting nurse or other home services: No Alcohol intake: former Patient Tobacco Use Status: Former Tobacco user Tobacco use type: Cigarette Cigarette Packs Per Day: 1 Cigarettes Per Day: 20 Years Smoked: 27 e-Cigarette/Vaping Use: Never Used service: No Current occupational status: unemployed Cognitive needs: No Hearing needs: No Vision needs: No Female Reproductive History Menstrual Age of Menarche: 13 Physical Exam Const General: healthy appearing and no acute distress Resp Effort & Inspection: normal respiratory effort Auscultation: clear to auscultation bilaterally Cardio Rate: regular rate Rhythm: regular rhythm GI Auscultation: normal bowel sounds Extrem General: Yes normal to inspection Assessment & Plan Assessment & Plan (1) S/P laparoscopic sleeve gastrectomy: Code(s): Z98.84 - Bariatric surgery status Category: Surgical Plan: Patient has tried multiple shake products and has had difficulty with most, able to tolerate food items as above. We will recommend changing meal plan to include: Yogurt, 20 g Meal x2 with 4 forks of protein and for forks of vegetables One egg Encouraged to text with any questions concerns or problems. Follow-up in 3 weeks
== END 2024-03-05 13:06 | disposition home or self-care (01) ==
PROVIDERS: PCP Internal Medicine; Visit Provider Physician Assistant Surgical
DX: E66.811 Obesity, class 1 (principal); Z68.32 Body mass index [BMI] 32.0-32.9, adult; Z90.3 Acquired absence of stomach [part of]; Z98.84 Bariatric surgery status
CPT/HCPCS: 99213; G2211

== ENCOUNTER → 2024-03-05 10:59 | Outpatient (BNVA) | payer OTHER, SELFPAY | PROVIDERS: PCP Internal Medicine; Visit Provider Physician Assistant Surgical | DX: E66.01 Morbid (severe) obesity due to excess calories (principal); K21.9 Gastro-esophageal reflux disease without esophagitis; Z68.32 Body mass index [BMI] 32.0-32.9, adult; Z90.3 Acquired absence of stomach [part of] | CPT/HCPCS: 99212 ==

== ENCOUNTER 2024-04-28 13:29 | Outpatient (AMB) | payer OTHER, SELFPAY ==
--- NOTE | 2024-04-28 13:13 | A.OFFVIS_ITS ---
VS Expanded 04/28/24 13:14 Height 5 ft 5 in Weight 195 lb 6 oz BMI 32.5 Intake Visit Reasons: (TV) PO LSG 11/14/23 Allergies Penicillins [PENICILLINS] Allergy (Unknown, Verified 03/05/24 11:09) BLACKED OUT HPI Comments Details: This?a?43?yo female who is s/p LSG without hiatal hernia repair on?11/14/2023. Presents for 5 months post op visit. Weight today is 195.6 pounds, with a BMI of 32.5 There has been a 68.6 pound weight loss,(initial weight 264.2 pounds) since starting the program on 09/20/2023 reflecting a 25.9 % total body weight loss and a weight loss of 35.9 pounds since surgery (operative weight 231.5 pounds) reflecting a 16.8 % TBWL since surgery. No complaints of nausea, emesis, abdominal pain or reflux. Taking celebrate mvi She states she stopped the yogurt and milk over the last 2 weeks as she feels cannot tolerate it, tolerating a 20 gm protein ball, eggs, chicken, veggies, Tolerated fish, chicken thigh, shrimp, cheese, Previous meal plan includes: Yogurt, 20 g Meal x2 with 4 forks of protein and for forks of vegetables One egg drinking 60 oz water Exercise plan walking outside, 7 days per week, 300-400 kayce per day PFSH Medical History Knee pain Back pain Asthma GERD (gastroesophageal reflux disease) Morbid obesity History of seizure Surgical History Hx of laparoscopic partial gastrectomy Hx of laparoscopy History of esophagogastroduodenoscopy (EGD) History of tonsillectomy and adenoidectomy Hx of bilateral salpingectomy Family History Maternal Grandfather Brain cancer Lung cancer Maternal Grandmother Lung cancer Social History Household Members: Family Household Members Other:: minor children Housing: House Are you a primary healthcare insurance sales agent to a significant other at home: Yes (minor children) Do you presently have visiting nurse or other home services: No Alcohol intake: former Patient Tobacco Use Status: Former Tobacco user Tobacco use type: Cigarette Cigarette Packs Per Day: 1 Cigarettes Per Day: 20 Years Smoked: 27 e-Cigarette/Vaping Use: Never Used service: No Current occupational status: unemployed Cognitive needs: No Hearing needs: No Vision needs: No Female Reproductive History Menstrual Age of Menarche: 13 Telehealth Telehealth Telehealth Platform: Telephone Location of provider rendering services: practice address Location of patient: address on file Patient Identification confirmed using: Name, : Yes Telehealth method: voice only Patient verbally consented to treatment: Yes Patient verbally consented to billing insurance company: Yes Patient informed of any privacy concerns related to visit: Yes Minutes spent on Phone/Video with Pt.: 15 Assessment & Plan Assessment & Plan (1) S/P laparoscopic sleeve gastrectomy: Code(s): Z98.84 - Bariatric surgery status Category: Surgical Plan: Discussed multiple strategies in the past however patient has intermittent intolerances to food. Discussed that this is likely all psychological in nature. She states that she will try protein shakes again. Discussed trying fair life ready to drink shake. Encouraged her to text me if she is able to do this consistently so I may give her a more accurate meal plan. Encouraged to formally exercise with a goal of burning 300 calories per day. We will have her return to the office in approximately 1 month for her six-month postop visit. Check labs at that time. Continue multivitamin.
[2024-04-28 13:14] VITALS: BMI 32.5
== END 2024-04-28 13:33 | disposition home or self-care (01) ==
LOC: HO.HBS 13:29
PROVIDERS: PCP Internal Medicine; Visit Provider Physician Assistant Surgical
DX: E66.811 Obesity, class 1 (principal); Z68.32 Body mass index [BMI] 32.0-32.9, adult; Z90.3 Acquired absence of stomach [part of]; Z98.84 Bariatric surgery status
CPT/HCPCS: 99213

== ENCOUNTER 2024-05-29 08:40 | Outpatient (AMB) | payer OTHER, SELFPAY ==
--- NOTE | 2024-05-29 08:54 | A.OFFVIS_ITS ---
VS Expanded 05/29/24 09:08 BP 127/79 Blood Pressure Location Rt brachial Blood Pressure Position Sitting Pulse 69 Pulse Source Pulse Oximeter Temp 97.8 F Temperature Source Temporal Artery Scan Pulse Oximetry 98 Oxygen Delivery Method Room Air Height 5 ft 5 in Weight 186 lb 6.4 oz BMI 31.0 Body Fat % 41.1 Body Fat Mass 76.6 Fat Free Mass 109.8 Visceral Fat Rating 8.0 Body Water % 42.1 Body Water Mass 78.4 Muscle Mass/Score 104.2 Basal Metabolic Rate/Score 1,532 Intake Visit Reasons: (TV) PO LSG 11/14/23 Community Health Educator Required: No Allergies Penicillins [PENICILLINS] Allergy (Unknown, Verified 05/29/24 09:00) BLACKED OUT Medication List - Last Reconciled 05/29/24 by IZABELLA Bosch No Known Home Meds HPI Comments Details: This?a?43?yo female who is s/p LSG without hiatal hernia repair on?11/14/2023. Presents for 6 months post op visit. Weight today is 186.4 pounds, with a BMI of 31 There has been a 77.8 pound weight loss,(initial weight 264.2 pounds) since starting the program on 09/20/2023 reflecting a 29.4 % total body weight loss and a weight loss of 45.1 pounds since surgery (operative weight 231.5 pounds) reflecting a 19.4 % TBWL since surgery. No complaints of nausea, emesis, abdominal pain or reflux. Taking celebrate mvi She states she has been feeling unwell for the last month. She describes upper respiratory symptoms with cough, congestion, sinus pressure. She has not sought medical advice as she ?does not like going to doctors?. She feels as though this is getting worse, she was advised to seek medical attention from her primary care physician. She will take this under consideration.She did not try the [employer] shakes and not eating or drinking a lot. She would eat soup, ramen noodles, chicken, pork, eggs, broccoli, salad, cucumber. Previous meal plan includes: Yogurt, 20 g Meal x2 with 4 forks of protein and for forks of vegetables One egg drinking 60 oz water Exercise plan walking outside, 7 days per week, 300-400 kayce per day [facility] Medical History Knee pain Back pain Asthma GERD (gastroesophageal reflux disease) Morbid obesity History of seizure Surgical History Hx of laparoscopic partial gastrectomy Hx of laparoscopy History of esophagogastroduodenoscopy (EGD) History of tonsillectomy and adenoidectomy Hx of bilateral salpingectomy Family History Maternal Grandfather Brain cancer Lung cancer Maternal Grandmother Lung cancer Social History (Updated 05/29/24 @ 09:01 by Diana Lizarraga CMA) Household Members: Family Household Members Other:: minor children Housing: House Are you a primary home care aide to a significant other at home: Yes (minor children) Do you presently have visiting nurse or other home services: No Alcohol intake: current Alcohol intake frequency: holidays/special occasions only Patient Tobacco Use Status: Former Tobacco user Tobacco use type: Cigarette Cigarette Packs Per Day: 1 Cigarettes Per Day: 20 Years Smoked: 27 e-Cigarette/Vaping Use: Never Used service: No Current occupational status: unemployed Cognitive needs: No Hearing needs: No Vision needs: No Female Reproductive History Menstrual Age of Menarche: 13 Physical Exam Const General: cooperative and no acute distress Orientation/consciousness: patient oriented x3 Resp Effort & Inspection: normal respiratory effort Auscultation: clear to auscultation bilaterally Cardio Rate: regular rate Rhythm: regular rhythm GI Inspection: Yes normal to inspection and Yes incision (well healed) Palpation (GI): Soft to palpation and no masses Neuro General: patient oriented x3 Assessment & Plan Assessment & Plan (1) S/P laparoscopic sleeve gastrectomy: Code(s): Z98.84 - Bariatric surgery status Category: Surgical Plan: Patient has not yet tried the fair life ready to drink shake. She has been eating what she wants, when she can. She did not communicate with me since last visit. Encouraged to do so. We will check six-month labs. (2) Cough: Code(s): R05.9 - Cough, unspecified Category: Medical Plan: URI sx x 1 month, worsening per her report. I called her PCP and she can be seen today at 2:30. Orders: Orders Lipid Panel Today E50.9 - Vitamin A deficiency, unspecified, E51.9 - Thiamine deficiency, unspecified, E55.9 - Vitamin D deficiency, unspecified, E61.1 - Iron deficiency, K76.0 - Fatty (change of) liver, not elsewhere classified, R79.89 - Other specified abnormal findings of blood chemistry, Z98.84 - Bariatric hogan rgery status Zinc Today E50.9 - Vitamin A deficiency, unspecified, E51.9 - Thiamine deficiency, unspecified, E55.9 - Vitamin D deficiency, unspecified, E61.1 - Iron deficiency, K76.0 - Fatty (change of) liver, not elsewhere classified, R79.89 - Other specified abnormal findings of blood chemistry, Z98.84 - Bariatric surgery status Vitamin B1 Today E50.9 - Vitamin A deficiency, unspecified, E51.9 - Thiamine deficiency, unspecified, E55.9 - Vitamin D deficiency, unspecified, E61.1 - Iron deficiency, K76.0 - Fatty (change of) liver, not elsewhere classified, R79.89 - Other specified abnormal findings of blood chemistry, Z98.84 - Bariatric surgery status TSH reflex Free T4 Today E50.9 - Vitamin A deficiency, unspecified, E51.9 - Thiamine deficiency, unspecified, E55.9 - Vitamin D deficiency, unspecified, E61.1 - Iron deficiency, K76.0 - Fatty (change of) liver, not elsewhere classified, R79.89 - Other specified abnormal findings of blood chemistry, Z98.84 - Bariatric surgery status Ferritin Today E50.9 - Vitamin A deficiency, unspecified, E51.9 - Thiamine deficiency, unspecified, E55.9 - Vitamin D deficiency, unspecified, E61.1 - Iron deficiency, K76.0 - Fatty (change of) liver, not elsewhere classified, R79.89 - Other specified abnormal findings of blood chemistry, Z98.84 - Bariatric surgery status Vitamin D 25-OH Total Today E50.9 - Vitamin A deficiency, unspecified, E51.9 - Thiamine deficiency, unspecified, E55.9 - Vitamin D deficiency, unspecified, E61.1 - Iron deficiency, K76.0 - Fatty (change of) liver, not elsewhere classified, R79.89 - Other specified abnormal findings of blood chemistry, Z98.84 - Bariatric surgery status Insulin Today E50.9 - Vitamin A deficiency, unspecified, E51.9 - Thiamine deficiency, unspecified, E55.9 - Vitamin D deficiency, unspecified, E61.1 - Iron deficiency, K76.0 - Fatty (change of) liver, not elsewhere classified, R79.89 - Other specified abnormal findings of blood chemistry, Z98.84 - Bariatric surgery status Hemoglobin A1c Today E50.9 - Vitamin A deficiency, unspecified, E51.9 - Thiamine deficiency, unspecified, E55.9 - Vitamin D deficiency, unspecified, E61.1 - Iron deficiency, K76.0 - Fatty (change of) liver, not elsewhere classified, R79.89 - Other specified abnormal findings of blood chemistry, Z98.84 - Bariatric surgery status Complete Blood Count Auto Diff Today E50.9 - Vitamin A deficiency, unspecified, E51.9 - Thiamine deficiency, unspecified, E55.9 - Vitamin D deficiency, unspecified, E61.1 - Iron deficiency, K76.0 - Fatty (change of) liver, not elsewhere classified, R79.89 - Other specified abnormal findings of blood chemistry, Z98.84 - Bariatric surgery status IRON PROFILE Today E50.9 - Vitamin A deficiency, unspecified, E51.9 - Thiamine deficiency, unspecified, E55.9 - Vitamin D deficiency, unspecified, E61.1 - Iron deficiency, K76.0 - Fatty (change of) liver, not elsewhere classified, R79.89 - Other specified abnormal findings of blood chemistry, Z98.84 - Bariatric surgery status Comprehensive Met. Panel Today E50.9 - Vitamin A deficiency, unspecified, E51.9 - Thiamine deficiency, unspecified, E55.9 - Vitamin D deficiency, unspecified, E61.1 - Iron deficiency, K76.0 - Fatty (change of) liver, not elsewhere classified, R79.89 - Other specified abnormal findings of blood chemistry, Z98.84 - Bariatric surgery status Vitamin B12 and Folate Today E50.9 - Vitamin A deficiency, unspecified, E51.9 - Thiamine deficiency, unspecified, E55.9 - Vitamin D deficiency, unspecified, E61.1 - Iron deficiency, K76.0 - Fatty (change of) liver, not elsewhere classified, R79.89 - Other specified abnormal findings of blood chemistry, Z98.84 - Bariatric surgery status C Reactive Protein Today E50.9 - Vitamin A deficiency, unspecified, E51.9 - Thiamine deficiency, unspecified, E55.9 - Vitamin D deficiency, unspecified, E61.1 - Iron deficiency, K76.0 - Fatty (change of) liver, not elsewhere classified, R79.89 - Other specified abnormal findings of blood chemistry, Z98.84 - Bariatric surgery status Vitamin A Today E50.9 - Vitamin A deficiency, unspecified, E51.9 - Thiamine deficiency, unspecified, E55.9 - Vitamin D deficiency, unspecified, E61.1 - Iron deficiency, K76.0 - Fatty (change of) liver, not elsewhere classified, R79.89 - Other specified abnormal findings of blood chemistry, Z98.84 - Bariatric surgery status
[2024-05-29 09:08] VITALS: BP 127/79; PULSE 69; TEMP 36.6; O2SAT 98; BMI 31.0
== END 2024-05-29 09:21 | disposition home or self-care (01) ==
PROVIDERS: PCP Internal Medicine; Visit Provider Physician Assistant Surgical
DX: R05.9 Cough, unspecified (principal); Z90.3 Acquired absence of stomach [part of]; Z98.84 Bariatric surgery status
CPT/HCPCS: 99213

== ENCOUNTER 2024-05-29 08:40 | Outpatient (REF) | payer OTHER, SELFPAY ==
[2024-05-29 09:50] LABS: MANUAL DIFF FLAG NO
[2024-05-29 10:44] LABS: Basophils Percent Auto 0.6 % (0-2); Eosinophils Absolute Auto 0.1 X10*3/uL (0.0-0.4); Eosinophils Percent Auto 1.7 % (0-4); Hematocrit 34.6 % (37.0-47.0); Hemoglobin 10.4 g/dl (12.0-16.0); Imm Gran Abs Auto 0.02 X10*3/uL (0.00-0.03); Imm Gran Pct Auto 0.3 % (0.0-0.4); Lymphocytes Absolute Auto 1.4 X10*3/uL (1.2-4.9); Mean Corpuscular HGB Conc 30.1 g/dl (31.0-35.0); Mean Corpuscular Hemoglobin 23.3 pg (27.0-33.0); Mean Corpuscular Volume 77.4 fL (80.0-98.0); Mean Platelet Volume 11.1 fL (9.4-12.3); Monocytes Absolute Auto 0.6 X10*3/uL (0.1-1.2); Monocytes Percent Auto 9.1 % (2-11); Neutrophils Absolute Auto 4.3 x10*3/uL (2.0-8.3); Neutrophils Percent Auto 66.3 % (45-73); Platelet Count 302 X10*3/uL (160-400); Red Blood Count 4.47 X10*6/uL (4.20-5.50); Red Cell Distribution Width 14.6 % (11.0-16.0); White Blood Count 6.5 X10*3/uL (4.8-10.8)
[2024-05-29 10:53] LABS: Estimated Average Glucose 114 mg/dL; Hemoglobin A1C 101.3989 umol/L; Hemoglobin A1c % 5.6 % (<6.0); Total Hemoglobin (HGBA1C) 2675.2554 umol/L
[2024-05-29 12:25] LABS: Folate 3.3 ng/mL (> or = 4.0); Vitamin B12 456 pg/mL (200-900)
[2024-05-29 13:13] LABS: Alanine Aminotransferase 6 U/L (0-31); Albumin Level 4.1 g/dL (3.5-5.0); Anion Gap 11 (12-20); Aspartate Amino Transferase 16 U/L (5-31); Bilirubin Total 0.5 mg/dL (0.0-1.0); Blood Urea Nitrogen 12 mg/dL (9-16); C Reactive Protein 0.89 mg/dL (< or = 0.50); Calcium 9.3 mg/dL (8.4-10.2); Carbon Dioxide 28 mmol/L (22-29); Chloride 108 mmol/L (96-108); Cholesterol 168 mg/dL (<200); Estimated Glomerular Filt Rate > 60; Ferritin 6 ng/mL (10-250); Glucose Random 89 mg/dL (60-115); HDL Cholesterol 79 mg/dL (>40); Insulin 6 uU/mL (2-29); Iron 16 mcg/dL (30-160); LDL Cholesterol Calculated 80 mg/dL (<100); Percent Iron Saturation 4 % (15-50); Potassium 4.4 mmol/L (3.3-5.1); Sodium 143 mmol/L (135-145); TSH reflex Free T4 0.85 uIU/mL (0.32-4.0); Total Iron Binding Capacity 399 mcg/dL (228-428); Total Protein 7.4 g/dL (6.5-8.0); Triglycerides 49 mg/dL (<150); Unsaturated Iron Binding 383 ug/dL; Vitamin D 25-OH Total 31.3 ng/mL (>30)
[2024-05-29 14:18] LABS: Alkaline Phosphatase 98 U/L (39-117)
[2024-06-01 21:03] LABS: Zinc 70 mcg/dL (60-130)
[2024-06-02 11:24] LABS: Vitamin A 34 mcg/dL (38-98)
[2024-06-09 05:34] LABS: Vitamin B1 <6 nmol/L (8-30)
== END 2024-05-29 08:41 | disposition home or self-care (01) ==
LOC: HO.LAB 08:40
PROVIDERS: PCP Internal Medicine; Visit Provider Physician Assistant Surgical
DX: R05.3 Chronic cough (principal); R06.02 Shortness of breath; D50.9 Iron deficiency anemia, unspecified; Z87.891 Personal history of nicotine dependence; E50.9 Vitamin A deficiency, unspecified; E51.9 Thiamine deficiency, unspecified; E55.9 Vitamin D deficiency, unspecified; R79.89 Other specified abnormal findings of blood chemistry; K76.0 Fatty (change of) liver, not elsewhere classified; Z98.84 Bariatric surgery status
CPT/HCPCS: 36415; 80053; 80061; 82306; 82607; 82728; 82746; 83036; 83525; 83540; 84425; 84443; 84590; 84630; 85025; 86140; 96127; 99212

== ENCOUNTER 2024-05-29 14:58 | Outpatient (REF) | payer OTHER, SELFPAY ==
--- NOTE | ~2024-05-29 | XR_ITS ---
EXAMINATION: XR CHEST CLINICAL INFORMATION: R05.3 - Chronic cough COMPARISON: None available. TECHNIQUE: 2 views of the chest were obtained. FINDINGS: Lungs are well-expanded and clear acute process. The heart size and pulmonary vascularity is normal. There is mild scoliosis of dorsolumbar spine. Otherwise no gross bony abnormality seen. XR/XR chest 2V IMPRESSION: No acute cardiopulmonary process seen. Mild scoliosis of dorsolumbar spine. Electronically signed by: Jourdan Mayberry MD 06/01/2024 07:20 AM JUDY
== END 2024-05-29 14:59 | disposition home or self-care (01) ==
LOC: HO.HMGCX 14:58
PROVIDERS: PCP Internal Medicine; Visit Provider Internal Medicine
DX: R05.3 Chronic cough (principal)
CPT/HCPCS: 71046

== ENCOUNTER → 2024-05-29 15:00 | Outpatient (BNV) | payer OTHER, SELFPAY | PROVIDERS: PCP Internal Medicine; Visit Provider Radiology Diagnostic Radiology | DX: R05.3 Chronic cough (principal) | CPT/HCPCS: 71046 ==

== ENCOUNTER → 2024-06-12 13:31 | Outpatient (BNVA) | payer OTHER, SELFPAY | PROVIDERS: PCP Internal Medicine; Referring Provider Internal Medicine; Visit Provider Nurse Practitioner Family | DX: J45.909 Unspecified asthma, uncomplicated (principal); R05.3 Chronic cough; K21.9 Gastro-esophageal reflux disease without esophagitis; Z87.891 Personal history of nicotine dependence; Z91.09 Other allergy status, other than to drugs and biological substances | CPT/HCPCS: 99202 ==

== ENCOUNTER → 2024-06-12 13:31 | Outpatient (AMB) | payer OTHER, SELFPAY | END | disposition home or self-care (01) | PROVIDERS: PCP Internal Medicine; Referring Provider Internal Medicine; Visit Provider Nurse Practitioner Family | CPT/HCPCS: 99204 ==

== ENCOUNTER 2024-06-12 14:07 | Outpatient (REF) | payer OTHER, SELFPAY ==
--- OUTSIDE RECORDS SUMMARY | 2024-06-12 14:27 | XMS_ITS | Clinical Summary ---
Author Organization [address] [facility] Address [address] [place] [address] Phone Care Team Providers Care Impregnator Helper Name Role Phone Ted Perry MD Primary Care Provider [phone] Social History Tobacco Use Types Packs/Day Years Used Date Smoking Tobacco: Never Assessed Sex and Gender Information Value Date Recorded Sex Assigned at Not on file Gender Identity Not on file Sexual Orientation Not on file Job Start Date Occupation Industry Not on file Not on file Not on file Plan of Treatment Health Maintenance Due Date Last Done Comments Breast Cancer Screening 1982 DTaP,Tdap,and Td Vaccines (1 - Tdap) 2001 Hepatitis B Vaccines (1 of 3 - 19+ 3-dose series) 2001 Cervical Cancer Screening: P ap Smear 09/14/2003 Depression Screening 06/04/2023 HIV Screening 06/04/2023 Hepatitis C Screening 06/04/2023 Social Influencers of Health Screening 06/04/2023 COVID-19 Vaccine ( - 2023-2 5 season) 2024 Influenza Vaccine (#1) 2024 HIB Vaccines Aged Out No longer eligi ble based on patient's age to complete this topic HPV Vaccines Aged Out No longer eligi ble based on patient's age to complete this topic Hepatitis A Vaccines Aged Out No long er eligible based on patient's age to complete this topic IPV Vaccines Aged Out No longer eligi ble based on patient's age to complete this topic MMR Vaccines Aged Out No longer eligi ble based on patient's age to complete this topic Meningococcal ACWY Vaccine Aged Out N o longer eligible based on patient's age to complete this topic Pneumococcal Vaccine: Pediat rics (0 to 5 Years) and At-Risk Patients (6 to 64 Years) Aged Out No longer eligible b ased on patient's age to complete this topic RSV Immunization Patients Un jayy 20 months Aged Out No longer eligible b ased on patient's age to complete this topic Varicella Vaccines Aged Out No longer eligible based on patient's age to complete this topic Care Teams Impregnator Helper Relationship Specialty Start Date End Date Ted Perry MD [address] [place] [address] Dr Marcel [place] PCP - General Internal Medicine 03/31/24
[2024-06-12 17:57] LABS: MANUAL DIFF FLAG NO
[2024-06-12 18:06] LABS: Basophils Percent Auto 0.8 % (0-2); Eosinophils Absolute Auto 0.1 X10*3/uL (0.0-0.4); Hematocrit 32.8 % (37.0-47.0); Hemoglobin 10.3 g/dl (12.0-16.0); Imm Gran Abs Auto 0.02 X10*3/uL (0.00-0.03); Imm Gran Pct Auto 0.4 % (0.0-0.4); Lymphocytes Absolute Auto 1.4 X10*3/uL (1.2-4.9); Lymphocytes Percent Auto 29.3 % (20-40); Mean Corpuscular HGB Conc 31.4 g/dl (31.0-35.0); Mean Corpuscular Hemoglobin 23.8 pg (27.0-33.0); Mean Corpuscular Volume 75.8 fL (80.0-98.0); Mean Platelet Volume 11.4 fL (9.4-12.3); Monocytes Absolute Auto 0.6 X10*3/uL (0.1-1.2); Monocytes Percent Auto 12.2 % (2-11); Neutrophils Absolute Auto 2.8 x10*3/uL (2.0-8.3); Neutrophils Percent Auto 56.3 % (45-73); Platelet Count 276 X10*3/uL (160-400); Red Blood Count 4.33 X10*6/uL (4.20-5.50); White Blood Count 4.9 X10*3/uL (4.8-10.8)
[2024-06-16 06:03] LABS: Class Alternaria alternata 0; Class Aspergillus fumigatus 0; Class Bermuda Grass 0; Class Birch 0; Class Cat Dander 0; Class Cladosporium herbarum 0; Class Cockroach 0; Class Common Ragweed 0; Class Cottonwood 0; Class Derm. pterony 0; Class Dermatophagoides farinae 0; Class Dog Dander 0; Class Elm 0; Class Maple Box Elder 0; Class Mountain Cedar 0; Class Mouse Urine Protein 0; Class Mugwort 0; Class Oak 0; Class Penicillium crysogenum 0; Class Rough Pigweed 0; Class Sheep Sorrel 0; Class Sycamore 0; Class Timothy Grass 0; Class Walnut Tree 0; Class White Ash 0; Class White Mulberry 0; D001 IgE D pteronyssinus <0.10 kU/L; D002 - IgE D farinae <0.10 kU/L; E001 - IgE Cat Dander <0.10 kU/L; E005 - IgE Dog Dander <0.10 kU/L; E072-IgE Mouse Urine <0.10 kU/L; G002 IgE Bermuda Grass <0.10 kU/L; G006 - IgE Timothy Grass <0.10 kU/L; I006-IgE Cockroach, German <0.10 kU/L; Immunoglobulin E 26 kU/L (<OR=114); M001 IgE Penicillium chrysogen <0.10 kU/L; M002 - IgE Cladosporium herbar <0.10 kU/L; M003 - IgE Aspergillus fumigat <0.10 kU/L; M006 - IgE Alternaria alternat <0.10 kU/L; T001 IgE Maple/Box Elder <0.10 kU/L; T003 IgE Common Silver Birch <0.10 kU/L; T006 - IgE Cedar, Mountain <0.10 kU/L; T007 - IgE Oak, White <0.10 kU/L; T008 IgE Elm, American <0.10 kU/L; T010 - IgE Walnut <0.10 kU/L; T011 - IgE Maple Leaf Sycamore <0.10 kU/L; T014 - IgE Cottonwood <0.10 kU/L; T015 - IgE Ash, White <0.10 kU/L; T070 - IgE White Mulberry <0.10 kU/L; W001 - IgE Ragweed, Short <0.10 kU/L; W006 - IgE Mugwort <0.10 kU/L; W014 IgE Pigweed, Common <0.10 kU/L; W018 IgE Sheep Sorrel <0.10 kU/L
== END 2024-06-12 14:08 | disposition home or self-care (01) ==
LOC: HO.WFDLDS 14:07
PROVIDERS: Visit Provider Nurse Practitioner Family
DX: Z91.09 Other allergy status, other than to drugs and biological substances (principal)
CPT/HCPCS: 36415; 82785; 85025; 86003

== ENCOUNTER 2024-07-13 09:30 | Outpatient (AMB) | payer OTHER, SELFPAY ==
--- NOTE | 2024-07-13 08:01 | A.OFFVIS_ITS ---
VS Expanded 07/13/24 08:03 Height 5 ft 5 in Weight 196 lb 8 oz BMI 32.7 Intake Visit Reasons: (TV) PO LSG 11/14/23 Recruiter Account Manager Required: No Allergies Penicillins [PENICILLINS] Allergy (Unknown, Verified 06/12/24 13:42) BLACKED OUT Medication List - Last Reconciled 07/13/24 by IZABELLA Bosch budesonide-formoterol 160-4.5 mcg/actuation (Symbicort) 2 inhalations inhalation BID doxycycline hyclate 100 mg PO BID folic acid 1 mg PO DAILY 90 days iron,carbonyl-vitamin C 65 mg iron- 125 mg (Vitron-C) 1 tab PO DAILY thiamine HCl (vitamin B1) 100 mg PO DAILY vitamin A palmitate 3,000 mcg PO DAILY 90 days HPI Comments Details: This?a?43?yo female who is s/p LSG without hiatal hernia repair on?11/14/2023. Presents for 8 months post op visit. Weight today is 196.8 pounds, with a BMI of 32.7 There has been a 67.4 pound weight loss,(initial weight 264.2 pounds) since starting the program on 09/20/2023 reflecting a 25.5 % total body weight loss and a weight loss of 34.7 pounds since surgery (operative weight 231.5 pounds) reflecting a 14.9 % TBWL since surgery. No complaints of nausea, emesis, abdominal pain or reflux. Taking celebrate mvi, Vit A, B1, Iron. She states that she is not motivated over the last 2 weeks. Not interested in doing anything. She feels tired, up all night not sleeping, not communicating with PCP. She is having a pulmonary test this week. . She is eating noodles, tries meat but states it feels like it sticks in her throat, pork chops are ok. Salad is ok. She previously would eat soup, ramen noodles, chicken, pork, eggs, broccoli, salad, cucumber. Previous meal plan includes: Yogurt, 20 g Meal x2 with 4 forks of protein and for forks of vegetables One egg drinking 60 oz water Exercise plan none in the last 2-3 weeks previously: walking outside, 7 days per week, 300-400 kayce per day PFSH Medical History Knee pain Back pain Asthma GERD (gastroesophageal reflux disease) Morbid obesity History of seizure Surgical History Hx of laparoscopic partial gastrectomy Hx of laparoscopy History of esophagogastroduodenoscopy (EGD) History of tonsillectomy and adenoidectomy Hx of bilateral salpingectomy Family History Maternal Grandfather Brain cancer Lung cancer Maternal Grandmother Lung cancer Social History Household Members: Family Household Members Other:: minor children Housing: House Are you a primary family day carer to a significant other at home: Yes (minor children) Do you presently have visiting nurse or other home services: No Alcohol intake: current Alcohol intake frequency: holidays/special occasions only Patient Tobacco Use Status: Former Tobacco user Tobacco use type: Cigarette Cigarette Packs Per Day: 1 Cigarettes Per Day: 20 Years Smoked: Quit July 2022 e-Cigarette/Vaping Use: Never Used service: No Current occupational status: unemployed Cognitive needs: No Hearing needs: No Vision needs: No Female Reproductive History Menstrual Age of Menarche: 13 Physical Exam Vital Signs: BMI result Body Mass Index 32.7 Telehealth Telehealth Telehealth Platform: Telephone Location of provider rendering services: practice address Location of patient: address on file Patient Identification confirmed using: Name, : Yes Telehealth method: voice only Patient verbally consented to treatment: Yes Patient verbally consented to billing insurance company: Yes Patient informed of any privacy concerns related to visit: Yes Minutes spent on Phone/Video with Pt.: 15 Assessment & Plan Assessment & Plan (1) S/P laparoscopic sleeve gastrectomy: Code(s): Z98.84 - Bariatric surgery status Category: Surgical Plan: Patient describes fatigue, poor sleep hygiene, anhedonia. She has not been eating well or getting much protein at all. She recognizes that she is doing this to herself. She has not discussed this with her primary care physician. I discussed with her the importance of protein intake. Discussed ground chicken or turkey as well as eggs. Additionally discussed unflavored protein powders, I recommended isopure 1 scoop in water, twice daily. Discussed fair life milk and if she wishes to use this she will text me. Additionally encouraged her to resume walking outside as she had done in the past. We will have her follow-up closely in approximately 3 weeks. Encouraged to text weekly and with any questions or concerns.
[2024-07-13 08:03] VITALS: BMI 32.7
--- OUTSIDE RECORDS SUMMARY | 2024-07-13 10:24 | XMS_ITS | Clinical Summary ---
Author Organization [address] [facility] Address [address] [place] [address] Phone Care Team Providers Care Executive Recruiter Name Role Phone Ted Perry MD Primary Care Provider [phone] Social History Tobacco Use Types Packs/Day Years Used Date Smoking Tobacco: Never Assessed Comments Unknown Sex and Gender Information Value Date Recorded Sex Assigned at Not on file Legal Sex Female 6:56 PM EST Gender Identity Not on file Sexual Orientation Not on file Plan of Treatment Health [...] patient's age to complete this topic Meningococcal B Vacine Aged Out No lo nger eligible based on patient's age to complete [...] on patient's age to complete this topic Insurance [facility] [employer] Care Teams Executive Recruiter Relationship Specialty Start Date End Date Ted Perry MD [address] [place] [address] Dr Marcel [place] PCP - General Internal Medicine 03/31/24
== END 2024-07-13 09:52 | disposition home or self-care (01) ==
LOC: HO.HBS 09:35
PROVIDERS: PCP Internal Medicine; Visit Provider Physician Assistant Surgical
DX: E66.811 Obesity, class 1 (principal); Z68.32 Body mass index [BMI] 32.0-32.9, adult; Z90.3 Acquired absence of stomach [part of]; Z98.84 Bariatric surgery status
CPT/HCPCS: 99213; G2211

== ENCOUNTER → 2024-07-13 09:30 | Outpatient (BNVA) | payer OTHER, SELFPAY | PROVIDERS: PCP Internal Medicine; Visit Provider Physician Assistant Surgical | DX: Z98.84 Bariatric surgery status (principal); K76.0 Fatty (change of) liver, not elsewhere classified; E51.9 Thiamine deficiency, unspecified; E50.9 Vitamin A deficiency, unspecified; E55.9 Vitamin D deficiency, unspecified; E61.1 Iron deficiency; R79.89 Other specified abnormal findings of blood chemistry ==

== ENCOUNTER 2024-07-16 08:48 | Outpatient (REF) | payer OTHER, SELFPAY ==
--- NOTE | 2024-07-16 08:54 | PFT_ITS ---
Flows: FEV1: 95 % of predicted at 2.91 L FVC: 94 % of predicted at 3.55 L FEV1/FVC: 82 % Bronchodilator response: Present in small to medium airways only Volumes: Total lung capacity: 95 % of predicted at 5.11 L Residual volume: 100 % of predicted at 1.38 L Slow vital capacity: 93 % of predicted at 3.74 L Expiratory reserve volume: 71 % of predicted at 0.89 L Diffusion capacity: Normal. Impression: No obstructive or restrictive ventilatory defect. Bronchodilator response is present in small to medium airways only. MTDD
[2024-07-16 09:33] VITALS: PULSE 59
--- OUTSIDE RECORDS SUMMARY | 2024-07-16 09:35 | XMS_ITS | Clinical Summary ---
Author Organization [address] [facility] Address [address] [place] [address] Phone Care Team Providers Care Reinsurance Clerk Name Role Phone Ted Perry MD Primary Care Provider [phone] Social History Tobacco Use Types Packs/Day Years [...] patient's age to complete this topic Insurance [facility] [employer] Care Teams Reinsurance Clerk Relationship Specialty Start Date End Date Ted Perry MD [address] [place] [address] Dr Marcel MA PCP - General Internal Medicine 03/31/24
== END 2024-07-16 08:49 | disposition home or self-care (01) ==
LOC: HO.RESP 08:48
PROVIDERS: PCP Internal Medicine; Visit Provider Nurse Practitioner Family
DX: J45.909 Unspecified asthma, uncomplicated (principal)
CPT/HCPCS: 94010; 94640; 94727; 94729

== ENCOUNTER → 2024-07-16 08:54 | Outpatient (BNV) | payer OTHER, SELFPAY | PROVIDERS: PCP Internal Medicine; Visit Provider Internal Medicine Pulmonary Disease | DX: J45.909 Unspecified asthma, uncomplicated (principal) | CPT/HCPCS: 94060; 94727; 94729 ==

== ENCOUNTER 2024-07-21 11:07 | Outpatient (AMB) | payer OTHER, SELFPAY ==
--- NOTE | 2024-07-21 11:10 | A.OFFVIS_ITS ---
Vital Signs 07/21/24 11:12 Height 5 ft 5 in Weight 200 lb BMI 33.3 BP 108/62 Blood Pressure Location Rt brachial Position Sitting Pulse 68 Pulse Source Pulse Oximeter Pulse Oximetry (%) 98 Oxygen Delivery Method Room Air Intake Visit Reasons: Chronic cough/ yari dependance/ SOB Firearms Sales Associate Required: No Allergies Penicillins [PENICILLINS] Allergy (Unknown, Verified 07/21/24 11:10) BLACKED OUT Medication List - Last Reconciled 07/21/24 by Christie Hernandez, JEWELRY SALES REPRESENTATIVE budesonide-formoterol 160-4.5 mcg/actuation (Symbicort) 2 inhalations inhalation BID folic acid 1 mg PO DAILY 90 days iron,carbonyl-vitamin C 65 mg iron- 125 mg (Vitron-C) 1 tab PO DAILY thiamine HCl (vitamin B1) 100 mg PO DAILY vitamin A palmitate 3,000 mcg PO DAILY 90 days HPI HPI Chronic cough/ yari dependance/ SOB: Details: Meera is a pleasant 43 year old female, former smoker, quit 2 years ago with 30+ pyh with underlying asthma, GERD, BOLIVAR, Horton's esophagus and s/p gastric sleeve 11/2023. At the last visit, she was placed on doxycyline for bronchitic symptoms, which have resolved. She has been using Symbicort 160 mcg BID with good effect. She does note that she has had dyspnea with moderate exertion and occasional dry cough. Denies wheezing or chest tightness. She continues with uncontrolled reflux and is going to call PCP to further discuss. She denies any visits to urgent care or hospitalizations related to respiratory distress since the last visit. Today she presents to review PFT and RAST. [facility] Medical History Knee pain Back pain Asthma GERD (gastroesophageal reflux disease) Morbid obesity History of seizure Surgical History Hx of laparoscopic partial gastrectomy Hx of laparoscopy History of esophagogastroduodenoscopy (EGD) History of tonsillectomy and adenoidectomy Hx of bilateral salpingectomy Family History Maternal Grandfather Brain cancer Lung cancer Maternal Grandmother Lung cancer Social History Household Members: Family Household Members Other:: minor children Housing: House Are you a primary animal caregiver to a significant other at home: Yes (minor children) Do you presently have visiting nurse or other home services: No Alcohol intake: current Alcohol intake frequency: holidays/special occasions only Patient Tobacco Use Status: Former Tobacco user Tobacco use type: Cigarette Cigarette Packs Per Day: 1 Cigarettes Per Day: 20 Years Smoked: 27 Quit July 2022 e-Cigarette/Vaping Use: Never Used service: No Current occupational status: unemployed Cognitive needs: No Hearing needs: No Vision needs: No Female Reproductive History Menstrual Age of Menarche: 13 Review of Systems Const Denies excessive sweating, Denies headache(s) and Denies night sweats Eyes Denies dry eyes, Denies irritation and Denies itchy eyes ENT Reports Normal hearing present, Denies headache(s), Denies post nasal drip and Denies sore throat Card Denies chest pain, Denies chest pain at rest, Denies chest pain with activity, Denies claudication, Denies leg edema, Denies orthopnea and Denies paroxysmal nocturnal dyspnea Resp Denies excessive phlegm production, Denies pain on inspiration, Denies pain with cough, Denies stridor and Denies wheezing Musc Denies myalgias Neuro Reports Normal hearing present and Denies headache(s) Endo Denies excessive sweating Xander/Lymph Denies lymphadenopathy Aller/Immun Denies itchy eyes, Denies seasonal rhinorrhea and Denies wheezing Physical Exam Vital Signs: Last Vital Signs Pulse 68 07/21/24 11:12 BP 108/62 07/21/24 11:12 Pulse Ox 98 07/21/24 11:12 Oxygen Delivery Method Room Air 07/21/24 11:12 BMI result Body Mass Index 33.3 Const General: cooperative, healthy appearing, comfortable, no acute distress, well developed and alert Nutritional Appearance: obese Orientation/consciousness: patient oriented x3 Limitations: no limitations HEENT Head: Yes normal to inspection, Yes normocephalic and Yes atraumatic Ears: hearing grossly normal bilaterally and external ears normal Eyes General: appearance normal, both eyes and all related structures Eyelids: Yes eyelids normal Sclerae: sclerae normal EOM: EOMs intact bilaterally Neck Neck: Yes normal visual inspection and Yes no lymphadenopathy Lymphatic: no lymphadenopathy noted Chest Chest palpation & inspection: normal inspection of the chest Resp Effort & Inspection: normal respiratory effort, able to speak in complete sente nces, no audible wheezes, no cough, no stridor, not tachypneic, no tripod positioning and no use of accessory muscles Auscultation: clear to auscultation bilaterally Cardio Jugular venous distension: no JVD Rate: regular rate Rhythm: regular rhythm Skin Other: warm, dry General skin exam: no rashes or lesions noted Neuro General: patient oriented x3 Cranial nerves: Yes Normal hearing present Cognition (Neuro): normal cognition Gait exam (Neuro): Normal gait present Extrem General: Yes normal to inspection, Yes capillary refill normal, Yes no clubbing, cyanosis or edema and Yes no pedal edema Psych Appearance: grossly normal and well kempt Speech and movement: Normal speech and movement present and Clear speech present Affect: normal affect Attitude: cooperative Thought process: Normal thought process present Thought content: Normal thought content present Insight: Good insight present (Psych) Judgement: Good judgement present (Psych) Assessment & Plan Assessment & Plan (1) Asthma: Code(s): J45.909 - Unspecified asthma, uncomplicated Category: Medical (2) GERD (gastroesophageal reflux disease): Code(s): K21.9 - Gastro-esophageal reflux disease without esophagitis Category: Medical (3) Chronic cough: Code(s): R05.3 - Chronic cough Category: Medical (4) Environmental allergies: Code(s): Z91.09 - Other allergy status, other than to drugs and biological substances Category: Medical Plan Reviewed PFT which revealed no obstructive or restrictive ventilatory defect. Bronchodilator response is present in small to medium airways only. DLCO normal. RAST negative. Advised to continue Symbicort and will add albuterol MDI to use PRN. We discussed starting PPI however would like to discuss with PCP. All questions were answered and patient is in agreement of plan. Will follow up in three months or sooner if needed. Medications: New albuterol sulfate 90 mcg/actuation 2 puffs inhalation Q4-6H PRN 1 ea 3RF shortness of breath or wheezing Coding Level of Care Code Est Pt Level 4 (87609) Diagnoses Asthma J45.909 GERD (gastroesophageal reflux disease) K21.9 Chronic cough R05.3 Environmental allergies Z91.09
[2024-07-21 11:12] VITALS: BP 108/62; PULSE 68; O2SAT 98; BMI 33.3
--- OUTSIDE RECORDS SUMMARY | 2024-07-21 13:25 | XMS_ITS | Clinical Summary ---
Author Organization 175 [facility] Address [address] [place] [address] Phone Care Team Providers Care Global Transportation Manager Name Role Phone Ted Perry MD Primary Care Provider Social History Tobacco Use Types Packs/Day Years [...] patient's age to complete this topic Insurance [facility] [place] [address] Care Teams Global Transportation Manager Relationship Specialty Start Date End Date Ted Perry MD [address] [place] [address] Dr Marcel [place] PCP - General Internal Medicine 03/31/24
== END 2024-07-21 11:41 | disposition home or self-care (01) ==
LOC: HO.HPSW 11:07
PROVIDERS: PCP Internal Medicine; Visit Provider Nurse Practitioner Family
DX: J45.909 Unspecified asthma, uncomplicated (principal); K21.9 Gastro-esophageal reflux disease without esophagitis; R05.3 Chronic cough; Z91.09 Other allergy status, other than to drugs and biological substances
CPT/HCPCS: 99214

== ENCOUNTER → 2024-07-21 11:07 | Outpatient (BNVA) | payer OTHER, SELFPAY | PROVIDERS: PCP Internal Medicine; Visit Provider Nurse Practitioner Family | DX: J45.909 Unspecified asthma, uncomplicated (principal); K21.9 Gastro-esophageal reflux disease without esophagitis; R05.3 Chronic cough; Z91.09 Other allergy status, other than to drugs and biological substances; Z87.891 Personal history of nicotine dependence; Z79.899 Other long term (current) drug therapy | CPT/HCPCS: 99212 ==

== ENCOUNTER 2024-08-03 08:58 | Outpatient (AMB) | payer OTHER, SELFPAY ==
[2024-08-03 08:40] VITALS: BMI 33.0
--- NOTE | 2024-08-03 08:40 | MHC.OFFVISWM ---
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 Presents for 8 months post op visit. Weight today is 198.6 pounds, with a BMI of 33. There has been a 65.6 pound weight loss,(initial weight 264.2 pounds) since starting the program on 09/20/2023 reflecting a 24.8 % total body weight loss and a weight loss of 32.9 pounds since surgery (operative weight 231.5 pounds) reflecting a 14.2 % TBWL since surgery. No complaints of nausea, emesis, abdominal pain or reflux. Taking flintstones mvi, Vit A, B1, Iron. She states she is still tired but some improvement. 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 Tried isopure unflavored, didn't like it, tried it with iced tea and won't do it. Tolerating atkins 15 gram rtd. meal plan includes: Atkins rtd 15 gm or 2 eggs Atkins shake if eggs in the morning Meal x 2 with 8 forks of protein and 8 forks of vegetables (broccoli, carrots, green beans) drinking 60 oz water Exercise plan walking to park 10 minutes at park. not tracking calories willing to try home videos PENDING SALE TO [facility] Medical History Knee pain Back pain Asthma GERD (gastroesophageal reflux disease) Morbid obesity History of seizure Surgical History Hx of laparoscopic partial gastrectomy Hx of laparoscopy History of esophagogastroduodenoscopy (EGD) History of tonsillectomy and adenoidectomy Hx of bilateral salpingectomy Family History Maternal Grandfather Brain cancer Lung cancer Maternal Grandmother Lung cancer Social History Household Members: Family Household Members Other:: minor children Housing: House Are you a primary customer care specialist to a significant other at home: Yes (minor children) Do you presently have visiting nurse or other home services: No Alcohol intake: current Alcohol intake frequency: holidays/special occasions only Patient Tobacco Use Status: Former Tobacco user Tobacco use type: Cigarette Cigarette Packs Per Day: 1 Cigarettes Per Day: 20 Years Smoked: 27 Quit July 2022 e-Cigarette/Vaping Use: Never Used service: No Current occupational status: unemployed Cognitive needs: No Hearing needs: No Vision needs: No Female Reproductive History Menstrual Age of Menarche: 13 Physical Exam Vital Signs: BMI result Body Mass Index 33.0 Telehealth Telehealth Telehealth Platform: Telephone Location of provider rendering services: practice address Location of patient: address on file Patient Identification confirmed using: Name, : Yes Telehealth method: voice only Patient verbally consented to treatment: Yes Patient verbally consented to billing insurance company: Yes Patient informed of any privacy concerns related to visit: Yes Minutes spent on Phone/Video with Pt.: 15 Assessment & Plan Assessment & Plan (1) S/P laparoscopic sleeve gastrectomy: Code(s): Z98.84 - Bariatric surgery status Category: Surgical Plan: Patient is aware that she is not exercising nearly enough. Food tolerance has improved. She will try to add isopure to her Atkins shake 2 eggs with veggies or Atkins shake with 1/2 scoop isopure shake or eggs depending upon what she did in the morning 7 foorks Protein and 7 forks vegetables Encouraged to start videos at home as she can not afford a gym membership and has no exercise equipment. Additionally, when she is walking outside, tracking calories. Overall goal is a proximally 300 per day. We will have her return to the office in November for her 1 year follow-up. Encouraged to text weights weekly and with any questions or concerns.
== END 2024-08-03 09:23 | disposition home or self-care (01) ==
LOC: HO.HBS 08:58
PROVIDERS: PCP Internal Medicine; Visit Provider Physician Assistant Surgical
DX: E66.811 Obesity, class 1 (principal); Z68.33 Body mass index [BMI] 33.0-33.9, adult; Z90.3 Acquired absence of stomach [part of]; Z98.84 Bariatric surgery status
CPT/HCPCS: 99213

== ENCOUNTER → 2024-08-03 08:58 | Outpatient (BNVA) | payer OTHER, SELFPAY | PROVIDERS: PCP Internal Medicine; Visit Provider Physician Assistant Surgical | DX: Z98.84 Bariatric surgery status (principal); K76.0 Fatty (change of) liver, not elsewhere classified; E51.9 Thiamine deficiency, unspecified; E50.9 Vitamin A deficiency, unspecified; E55.9 Vitamin D deficiency, unspecified; E61.1 Iron deficiency; R79.89 Other specified abnormal findings of blood chemistry ==

== ENCOUNTER 2024-11-13 10:02 | Outpatient (AMB) | payer OTHER, SELFPAY ==
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
[2024-11-13 09:16] VITALS: BMI 35.4
--- OUTSIDE RECORDS SUMMARY | 2024-11-13 10:26 | XMS_ITS | Clinical Summary ---
Author Organization 175 [facility] Address [address] [place] [address] Phone Care Team Providers Care Cyber Forensic Specialist Name Role Phone Ted Perry MD Primary Care Provider [phone] Social History Tobacco Use Types Packs/Day Years [...] 2023-2 5 season) 2024 Influenza Vaccine (#1) 2025 HIB Vaccines Aged Out No longer eligi [...] age to complete this topic Meningococcal B Vaccine Aged Out No l onger eligible based on patient's age to complete this topic Pneumococcal Vaccine: Pediat rics (0 to 5 Years) and At-Risk Patients (6 to 49 Years) Aged Out No longer eligible b ased on patient's age to complete this topic RSV Immunization Patients Un jayy 20 months Aged Out No longer eligible b ased on patient's age to complete this topic Varicella Vaccines Aged Out No longer eligible based on patient's age to complete this topic Insurance [facility] [employer] [facility] Care Teams Cyber Forensic Specialist Relationship Specialty Start Date End Date Ted Perry MD [address] [place] [address] Dr Marcel [place] PCP - General Internal Medicine 03/31/24
--- OUTSIDE RECORDS SUMMARY | 2024-11-13 10:26 | XMS_ITS | Patient Health Record ---
Author Organization [facility] [place] Address [address] [place] [address] Care Team Providers Care Petrol Tanker Driver Name Role Phone Ted Perry MD Primary Care Provider Unavaila Mumtaz Jerome Unavailable [phone] Allergies Allergen (clinical drug ingredient) Drug/Non Drug Allergy documented on EMR Reaction Allergy Type Onset Date Status Penicillin Blacked out Drug Allergy Acti ve Reason For Referral No Information Medications Medication SIG (Take, Route, Frequency, Duration) Notes Start Date End Date Status Sulfamethoxazole Act ebony traMADol HCl 50 MG 1 tablet as needed Orally every 6 hrs 12/15/2014 Active Nitrofurantoin Monohyd Macro Active HYDROcodone-Acetaminophen Not-Taking Social History Tobacco use other than smoking: Question Answer Notes Are you an other tobacco user? No Problems Problem Type SNOMED Code ICD Code Onset Dates Problem Status W/U Status Risk Notes Problem Neuralgia - Neuritis (729.2) Active confirmed Problem Hammer toe (512793204) Hammer toe (735.4) Active confirmed Problem Ingrowing nail (855129844) Ingrowing Nail (703.0) Active confirmed Resolved Plan Of Treatment Pending Test Test Name Order Date [id number] Plate 12/15/2014 Insurance Providers Payer Name Payer Address Payer Phone Subscriber Number Group Number Insured Name Patient Relationship to Insured Coverage Start Date Coverage End Date Medicare National [employer] [address] [place] [address] [id number] Meera Kidd Self - patient is the insured Medical (General) History Medical History History ICD Code Anemia asthma Back,Hip,and Knee pain Chicken pox Depression Headaches Joint implants/screws Surgical History Surgery Date(Month/Year) Laproscopic Ovarian Surgery Foot Surgery
== END 2024-11-13 10:04 | disposition home or self-care (01) ==
LOC: HO.HBS 10:02
PROVIDERS: PCP Internal Medicine; Visit Provider Physician Assistant Surgical
DX: E66.9 Obesity, unspecified (principal); Z68.35 Body mass index [BMI] 35.0-35.9, adult; Z90.3 Acquired absence of stomach [part of]; Z98.84 Bariatric surgery status
CPT/HCPCS: 98014

== ENCOUNTER 2024-11-17 13:13 | Outpatient (REF) | payer OTHER, SELFPAY ==
[2024-11-17 13:23] LABS: MANUAL DIFF FLAG NO
[2024-11-17 13:58] LABS: Hematocrit 31.6 % (37.0-47.0); Hemoglobin 9.2 g/dl (12.0-16.0); Imm Gran Abs Auto 0.01 X10*3/uL (0.00-0.03); Imm Gran Pct Auto 0.2 % (0.0-0.4); Lymphocytes Absolute Auto 1.4 X10*3/uL (1.2-4.9); Mean Corpuscular HGB Conc 29.1 g/dl (31.0-35.0); Mean Corpuscular Hemoglobin 21.7 pg (27.0-33.0); Mean Corpuscular Volume 74.5 fL (80.0-98.0); NRBC Abs Auto 0.000 X10*3/uL (0.0-0.012); NRBC Pct Auto 0.0 /100WBC (0.0-0.2); Platelet Count 311 X10*3/uL (160-400); Red Blood Count 4.24 X10*6/uL (4.20-5.50); White Blood Count 4.8 X10*3/uL (4.8-10.8)
[2024-11-17 14:13] LABS: Hemoglobin A1C 84.8981 umol/L; Total Hemoglobin (HGBA1C) 2465.4634 umol/L
--- OUTSIDE RECORDS SUMMARY | 2024-11-17 14:36 | XMS_ITS | Patient Health Record ---
Author Organization [facility] [place] Address [address] [facility] [place] [address] Care Team Providers Care Financial Brokers Name Role Phone Ted Perry MD Primary Care Provider Unavaila Mumtaz Jerome Unavailable [phone] Allergies Allergen (clinical drug ingredient) Drug/Non Drug [...] Neuritis (729.2) Active confirmed Problem Hammer toe (331696392) Hammer toe (735.4) Active confirmed Problem Ingrowing nail (648867611) Ingrowing Nail (703.0) Active confirmed Resolved Plan Of Treatment Pending Test Test Name Order Date [id number] Plate 12/15/2014 Insurance Providers Payer Name Payer Address Payer Phone Subscriber Number Group Number Insured Name Patient Relationship to Insured Coverage Start Date Coverage End Date Medicare National [employer] [address] [place] [address] [phone] [id number] Meera Kidd Self - patient is the insured Medical (General) History Medical History History ICD Code Anemia asthma Back,Hip,and Knee pain Chicken pox Depression Headaches Joint implants/screws Surgical History Surgery Date(Month/Year) Laproscopic Ovarian Surgery Foot Surgery
--- OUTSIDE RECORDS SUMMARY | 2024-11-17 14:36 | XMS_ITS | Clinical Summary ---
Author Organization [address] [facility] Address [address] [place] [address] Phone Care Team Providers Care Flight Test Shop Mechanic Name Role Phone Ted Perry MD Primary Care Provider [phone] Social History Tobacco Use Types Packs/Day Years [...] patient's age to complete this topic Insurance [facility] [employer] [place] [address] Care Teams Flight Test Shop Mechanic Relationship Specialty Start Date End Date Ted Perry MD [address] [place] [address] Dr Marcel [place] PCP - General Internal Medicine 03/31/24
[2024-11-17 14:57] LABS: Alanine Aminotransferase 9 U/L (0-31); Albumin Level 4.4 g/dL (3.5-5.0); Alkaline Phosphatase 80 U/L (39-117); Anion Gap 12 (12-20); Aspartate Amino Transferase 16 U/L (5-31); Blood Urea Nitrogen 9 mg/dL (9-16); Calcium 8.7 mg/dL (8.4-10.2); Carbon Dioxide 27 mmol/L (22-29); Chloride 109 mmol/L (96-108); Cholesterol 198 mg/dL (<200); Estimated Glomerular Filt Rate > 60; Ferritin 5 ng/mL (10-250); HDL Cholesterol 100 mg/dL (>40); Iron 10 mcg/dL (30-160); Percent Iron Saturation 2 % (15-50); Potassium 4.2 mmol/L (3.3-5.1); Sodium 144 mmol/L (135-145); Total Iron Binding Capacity 443 mcg/dL (228-428); Total Protein 6.9 g/dL (6.5-8.0); Triglycerides 94 mg/dL (<150); Unsaturated Iron Binding 433 ug/dL
[2024-11-17 15:04] LABS: Folate 5.0 ng/mL (> or = 4.0); Vitamin B12 310 pg/mL (200-900)
== END 2024-11-17 13:14 | disposition home or self-care (01) ==
LOC: HO.LAB 13:13
PROVIDERS: PCP Internal Medicine; Visit Provider Physician Assistant Surgical
DX: Z98.84 Bariatric surgery status (principal); E55.9 Vitamin D deficiency, unspecified; E50.9 Vitamin A deficiency, unspecified; E51.9 Thiamine deficiency, unspecified; R79.89 Other specified abnormal findings of blood chemistry
CPT/HCPCS: 36415; 80053; 80061; 82306; 82607; 82728; 82746; 83036; 83525; 83540; 84425; 84443; 84590; 84630; 85025; 86140

== ENCOUNTER 2024-11-24 13:21 | Outpatient (AMB) | payer OTHER, SELFPAY ==
[2024-11-24 13:34] VITALS: BP 106/62; PULSE 57; O2SAT 97; BMI 35.1
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
--- OUTSIDE RECORDS SUMMARY | 2024-11-24 14:29 | XMS_ITS | Clinical Summary ---
Author Organization [address] [facility] Address [address] [place] [address] Phone Care Team Providers Care Pre Kindergarten Teacher Name Role Phone Ted Perry MD Primary Care Provider [phone] Social History Tobacco Use Types Packs/Day Years [...] Cervical Cancer Screening: P ap Smear 09/14/2003 HIV Screening 06/04/2023 Hepatitis C Screening 06/04/2023 Social Influencers of Health Screening 06/04/2023 COVID-19 Vaccine ( - 2023-2 5 season) 2024 Depression Screening 05/06/2024 Influenza Vaccine (#1) 2025 HIB Vaccines Aged [...] patient's age to complete this topic Insurance [facility] [employer] [facility] Care Teams Pre Kindergarten Teacher Relationship Specialty Start Date End Date Ted Perry MD [address] [place] [address] Dr Marcel MA PCP - General Internal Medicine 03/31/24
--- OUTSIDE RECORDS SUMMARY | 2024-11-24 14:29 | XMS_ITS | Patient Health Record ---
Author Organization [facility] [place] Address [address] [facility] [place] [address] Care Team Providers Care Supervisor Motorcycle Repair Shop Name Role Phone Ted Perry MD Primary Care Provider Unavaila Mumtaz Jerome Unavailable [phone] Allergies Allergen (clinical drug ingredient) Drug/Non Drug [...] Neuritis (729.2) Active confirmed Problem Hammer toe (109545212) Hammer toe (735.4) Active confirmed Problem Ingrowing nail (195022618) Ingrowing Nail (703.0) Active confirmed Resolved Plan Of Treatment Pending Test Test Name Order Date [id number] Plate 12/15/2014 Insurance Providers Payer Name Payer Address Payer Phone Subscriber Number Group Number Insured Name Patient Relationship to Insured Coverage Start Date Coverage End Date Medicare National Govt Sv[employer] Inc [address] [facility] [place] [address] [id number] Meera Kidd Self - patient is the insured Medical (General) History Medical History History ICD Code Anemia asthma Back,Hip,and Knee pain Chicken pox Depression Headaches Joint implants/screws Surgical History Surgery Date(Month/Year) Laproscopic Ovarian Surgery Foot Surgery
== END 2024-11-24 13:51 | disposition home or self-care (01) ==
LOC: HO.HMCC 13:22
PROVIDERS: PCP Internal Medicine; Visit Provider Internal Medicine
DX: D50.9 Iron deficiency anemia, unspecified (principal); K21.00 Gastro-esophageal reflux disease with esophagitis, without bleeding; K22.70 Barrett's esophagus without dysplasia; J45.40 Moderate persistent asthma, uncomplicated; R12 Heartburn; Z98.84 Bariatric surgery status

== ENCOUNTER → 2024-11-24 13:21 | Outpatient (BNVA) | payer OTHER, SELFPAY | PROVIDERS: PCP Internal Medicine; Visit Provider Internal Medicine | DX: K21.00 Gastro-esophageal reflux disease with esophagitis, without bleeding (principal); D50.9 Iron deficiency anemia, unspecified; K22.70 Barrett's esophagus without dysplasia; J45.40 Moderate persistent asthma, uncomplicated; R12 Heartburn; Z98.84 Bariatric surgery status | CPT/HCPCS: 99212 ==

== ENCOUNTER 2025-01-08 14:59 | Outpatient (REF) | payer OTHER, SELFPAY ==
--- OUTSIDE RECORDS SUMMARY | 2025-01-08 15:01 | XMS_ITS | Patient Health Record ---
Author Organization [facility] Address [address] [place] [address] Care Team Providers Care Perinatal Coordinator Name Role Phone Devonte NICOLE, [facility] Primary [facility] Provider Al Morrow [phone] Allergies Allergen (clinical drug ingredient) Drug/Non Drug Allergy documented on EMR Reaction Allergy Type Onset Date Status Penicillin Unknown Drug Allergy Active Reason For Referral No Information Medications Medication SIG (Take, Route, Frequency, Duration) Notes Start Date End Date Status Vitamin A 1500 MCG/ML 1 mL Orally Once a day Active Thiamine HCl 100 MG 1 tablet Orally Once a day Active Omeprazole 20 MG 1 Orally twice a day 01/08/2025 Active Symbicort 160-4.5 MCG/ACT as directed Inhalation Active Albuterol Sulfate HFA 108 (90 Base) MCG/ACT 1 puff as needed Inhalation every 4 hrs Active Iron 325 (65 Fe) MG 1 tablet Orally Thre e times a Week for 30 day(s) 01/08/2025 Activ e Heartburn Relief 10 MG 1 tablet as neede d Orally Twice a day 01/08/2025 Active Immunizations Vaccine Route Administration Date Status Comme nts Influenza Unknown 01/21/2024 Administered Social History Tobacco Use: Social History Observation [...] Problem Status W/U Status Risk Notes Problem Iron deficiency anemia (41122414) Iron deficiency anemia (D50.9) Active confirmed Problem Irregular bowel habits (325170586) Irregular bowel habits (R19.8) Active confirmed Problem Gastroesophageal reflux disease (331117695) GERD (gastroesophag eal reflux disease) (K21.9) Active confirmed Vital Signs Temperature 98.4 degrees Fahrenheit 01/08/2025 Blood pressure diastolic 01 mm Hg 01/08/2025 Height 64 in 01/08/2025 Blood pressure systolic 001 mm Hg 01/08/2025 Weight 212.4 lbs 01/08/2025 BMI 36.45 kg/m2 01/08/2025 Procedures Procedure Date Ordered Date Performed Result Body Sit e UPPER GI ENDOSCOPY 01/08/2025 N/A COLONOSCOPY 01/08/2025 N/A Encounters Encounter Location Date Provider Diagnosis [facility] [address] [place] [address] 01/08/2025 Al David GERD (gastroesophageal reflux disease) K21.9 ; Iron deficiency anemia D50.9 and Irregular bowel habits R19.8 Assessments Encounter Date Diagnosis (ICD Code) Assessment Notes Treatment Notes Treatment Clinical Notes Section Notes 01/08/2025 Iron deficiency anemia (ICD-10 - D50.9) Overall, Prela appears well and is not having any particularly worrisome GI complaints. However, in regard to her anemia we did review that this could very well be in relation to some iron malabsorption in relation to her gastric surgery. I did advise her to continue the iron twice a day and I shall repeat the below laboratories to see if there has been any improvement since the studies in November. I did recommend an upper endoscopy for evaluation both for the anemia and [...] keep you advised of her progress. 01/08/2025 GERD (gastroesophag eal reflux disease) (ICD-10 - K21.9) Contimnue the omeprazole once or twice every day Overall, Perla appears well and is not having any particularly worrisome GI complaints. However, in regard to her anemia we did review that this could very well be in relation to some iron malabsorption in relation to her gastric surgery. I did advise her to continue the iron twice a day and I shall repeat the below laboratories to see if there has been any improvement since the studies in November. I did recommend an upper endoscopy for evaluation both for the anemia and [...] some iron malabsorption in relation to her gastric surgery. I did advise her to continue the iron twice a day and I shall repeat the below laboratories to see if there has been any improvement since the studies in November. I did recommend an upper endoscopy for evaluation both for the anemia and [...] advised of her progress. Plan Of Treatment Pending Test Test Name Order Date UPPER GI ENDOSCOPY 01/08/2025 COLONOSCOPY 01/08/2025 IRON + IBC (FE) 01/08/2025 CBC w DIFF 01/08/2025 Ferritin 01/08/2025 Vitamin B12 and Folate 01/08/2025 Celiac Disease Panel 01/08/2025 Next Appt Details Provider Name:Al David , 03/08/2025 02:40:00 PM, [address] [place] [address] , [place], [place], [phone], Insurance Providers Payer Name Payer Address Payer Phone Subscriber Number Group Number Insured Name Patient Relationship to Insured Coverage Start Date Coverage End Date [facility] [address] [address] [place], [place] [id number] WARNER PERLA Self - patient is the insured Medical (General) History Medical History History ICD Code Iron def. anemia---since the gastric byp ass in 12/2023 Asthma Denies [place],DM,CVA,renal disease GERD--reported hx of Horton's Seizures Surgical History Surgery Date(Month/Year) Bilateral salpingectomy Adenoidectomy Tonsilectomy Laparoscopy Bariatric surgery--[facility]-12/202311/14/23
--- OUTSIDE RECORDS SUMMARY | 2025-01-08 15:01 | XMS_ITS | Patient Health Record ---
Author Organization [facility] Sofy henrry [place] Address [address] [facility] [place] [address] Care Team Providers Care Strap Cutting Machine Operator Name Role Phone Ted Perry MD Primary Care Provider Unavaila Mumtaz Jerome Unavailable [phone] Allergies Allergen (clinical drug ingredient) Drug/Non Drug [...] Neuritis (729.2) Active confirmed Problem Hammer toe (204448688) Hammer toe (735.4) Active confirmed Problem Ingrowing nail (155746502) Ingrowing Nail (703.0) Active confirmed Resolved Plan Of Treatment Pending Test Test Name Order Date [id number] Plate 12/15/2014 Insurance Providers Payer Name Payer Address Payer Phone Subscriber Number Group Number Insured Name Patient Relationship to Insured Coverage Start Date Coverage End Date Medicare National [employer] [address] [facility] [address] [id number] Meera Kidd Self - patient is the insured Medical (General) History Medical History History ICD Code Anemia asthma Back,Hip,and Knee pain Chicken pox Depression Headaches Joint implants/screws Surgical History Surgery Date(Month/Year) Laproscopic Ovarian Surgery Foot Surgery
--- OUTSIDE RECORDS SUMMARY | 2025-01-08 15:02 | XMS_ITS | Clinical Summary ---
Author Organization [facility] Address [address] [place] [address] Phone Care Team Providers Care Tax Collector Name Role Phone Ted Perry MD Primary Care Provider [phone] Social History Tobacco Use Types Packs/Day Years [...] age to complete this topic Insurance [facility] Resultly [facility] Care Teams Tax Collector Relationship Specialty Start Date End Date Ted Perry MD [address] [place] [address] Dr Marcel [place] PCP - General Internal Medicine 03/31/24
[2025-01-08 15:16] LABS: MANUAL DIFF FLAG NO
[2025-01-08 15:40] LABS: Hematocrit 33.0 % (37.0-47.0); Hemoglobin 9.7 g/dl (12.0-16.0); Imm Gran Abs Auto 0.01 X10*3/uL (0.00-0.03); Imm Gran Pct Auto 0.2 % (0.0-0.4); Lymphocytes Absolute Auto 1.7 X10*3/uL (1.2-4.9); Mean Corpuscular HGB Conc 29.4 g/dl (31.0-35.0); Mean Corpuscular Hemoglobin 21.7 pg (27.0-33.0); Mean Corpuscular Volume 74.0 fL (80.0-98.0); NRBC Abs Auto 0.000 X10*3/uL (0.0-0.012); NRBC Pct Auto 0.0 /100WBC (0.0-0.2); Platelet Count 231 X10*3/uL (160-400); Red Blood Count 4.46 X10*6/uL (4.20-5.50); White Blood Count 4.8 X10*3/uL (4.8-10.8)
[2025-01-08 16:47] LABS: Iron 17 mcg/dL (30-160); Percent Iron Saturation 4 % (15-50); Total Iron Binding Capacity 465 mcg/dL (228-428); Unsaturated Iron Binding 448 ug/dL
[2025-01-08 17:02] LABS: Ferritin 5 ng/mL (10-250)
[2025-01-08 17:13] LABS: Folate 6.1 ng/mL (> or = 4.0); Vitamin B12 272 pg/mL (200-900)
== END 2025-01-08 15:00 | disposition home or self-care (01) ==
LOC: HO.LAB 14:59
PROVIDERS: PCP Internal Medicine; Visit Provider Internal Medicine
DX: D50.9 Iron deficiency anemia, unspecified (principal); R19.8 Other specified symptoms and signs involving the digestive system and abdomen; Z01.84 Encounter for antibody response examination
CPT/HCPCS: 36415; 82607; 82728; 82746; 83540; 85025; 86258; 86364

== ENCOUNTER 2025-03-08 11:45 | Day surgery (SDC) | payer OTHER, SELFPAY ==
--- OUTSIDE RECORDS SUMMARY | 2025-01-08 10:00 | XMS_ITS ---
Author Organization [facility] Address [address] [place] [address] Care Team Providers Care Certified Coding Specialist Name Role Phone Devonte NICOLE, [facility] Primary [facility] Provider Al Morrow [phone] Allergies Allergen (clinical drug ingredient) Drug/Non Drug Allergy documented on EMR Reaction Allergy Type Onset Date Status Penicillin Unknown Drug Allergy Active Results Component Value Reference Range Notes Ferritin (Not yet reviewed b y provider) Interpretation: Performing Lab:[facility], [address] [place] [phone] Notes/Report: Ferritin 5 10-250 ng/mL Vitamin B12 and Folate Reviewed date:01/14/2025 06:44:01 PM Interpretation: Performing Lab:[facility], [address] [place] [phone] Notes/Report: Vitamin B12 272 200-900 pg/mL NORMAL 200-900 PG/ML INDETERMINATE 160-199 PG/ML DEFICIENT < 160 PG/ML Folate 6.1 > or = 4.0 ng/mL Reference Values: > or = 4.0 ng/mL < 4.0 ng/mL suggests folate deficiency Methotrexate, aminopterin and folinic acid (leucovorin) are chemotherapeutic agents whose molecular structures are similar to folate; therefore, the [employer] folate assay cannot be used for patients using these drugs. REASON FOR VISIT Patient presents today for anemia Medications Medication SIG (Take, Route, Frequency, Duration) Notes Start Date End Date Status Thiamine HCl 100 MG 1 tablet Orally Once a day Active Symbicort 160-4.5 MCG/ACT as directed Inhalation Active Albuterol Sulfate HFA 108 (90 Base) MCG/ACT 1 puff as needed Inhalation every 4 hrs Active Iron 325 (65 Fe) MG 1 tablet Orally Thre e times a Week for 30 day(s) 01/08/2025 Activ e Heartburn Relief 10 MG 1 tablet as neede d Orally Twice a day 01/08/2025 Active Vitamin A 1500 MCG/ML 1 mL Orally Once a day Active Omeprazole 20 MG 1 Orally twice a day 01/08/2025 Active Social History Tobacco Use: Social History Observation Description Date Details (start date - stop date) Never Smoker NA - NA Tobacco Control (Standard) Question Answer Notes Tobacco use: Nonsmoker AUDIT-C (Standard) Question Answer Notes Did you have a drink contain ing alcohol in the past year? Yes How often did you have a dri nk containing alcohol in the past year? Monthly or less (1 point) How many drinks did you have on a typical day when you were drinking in the past year? 1 or 2 drinks (0 point) How often did you have six o r more drinks on one occasion in the past year? Never (0 point) Points 1 Interpretation Negative Section Notes: Nonsmoker; no sig alcohol Problems Problem Type SNOMED Code ICD Code Onset Dates Problem Status W/U Status Risk Notes Problem Gastroesophageal reflux disease (763164405) GERD (gastroesophag eal reflux disease) (K21.9) Active confirmed Problem Iron deficiency anemia (81304747) Iron deficiency anemia (D50.9) Active confirmed Problem Irregular bowel habits (101706355) Irregular bowel habits (R19.8) Active confirmed Vital Signs Temperature 98.4 degrees Fahrenheit 01/09/20 25 Blood pressure systolic 001 mm Hg 01/09/20 25 Blood pressure diastolic 01 mm Hg 025 Height 64 in 01/08/2025 Weight 212.4 lbs 01/08/2025 BMI 36.45 kg/m2 01/08/2025 Procedures Procedure Date Ordered Date Performed Result Body Sit e UPPER GI ENDOSCOPY 01/08/2025 N/A COLONOSCOPY 01/08/2025 N/A Encounters Encounter Location Date Provider Diagnosis [facility] [address] [place] [address] 01/08/2025 Al David GERD (gastroesophageal reflux disease) K21.9 ; Iron deficiency anemia D50.9 and Irregular bowel habits R19.8 Assessments Encounter Date Diagnosis (ICD Code) Assessment Notes Treatment Notes Treatment Clinical Notes Section Notes 01/08/2025 GERD (gastroesophag eal reflux disease) (ICD-10 - K21.9) Contimnue the omeprazole once or twice every day Overall, Perla appears well and is not having any particularly worrisome GI complaints. However, in regard to her anemia we did review that this could very well be in relation to some iron malabsorption in relation to her bariatric gastric sleeve surgery. I did advise her to continue the iron twice a day and I shall repeat the below laboratories to see if there has been any improvement since the studies in November. I did recommend an upper endoscopy with duodenal biopsies to assess for celiac disease for evaluation both for the anemia and her chronic reflux with reported Horton's esophagus. I have also recommended a colonoscopy on the same day for evaluation of her anemia and irregular bowel movements as well. She has been given the below instructions regarding adjustment of her medications for the procedure. Full consent has been obtained from her for both procedures, including risks of bleeding and perforation. The procedures will be done with monitored anesthesia care. In regard to the irregular bowel movements I did recommend trials of Metamucil and/or MiraLAX to see if that can give her some relief. I shall also check celiac disease labs both in regard to the anemia and the irregular bowel movements. Perla was comfortable with this plan. Thank you again for allowing me to participate in Perla's care. I shall continue to keep you advised of her progress. 01/08/2025 Iron deficiency anemia (ICD-10 - D50.9) Overall, Perla appears well and is not having any particularly worrisome GI complaints. However, in regard to her anemia we did review that this could very well be in relation to some iron malabsorption in relation to her bariatric gastric sleeve surgery. I did advise her to continue the iron twice a day and I shall repeat the below laboratories to see if there has been any improvement since the studies in November. I did recommend an upper endoscopy with duodenal biopsies to assess for celiac disease for evaluation both for the anemia and her chronic reflux with reported Horton's esophagus. I have also recommended a colonoscopy on the same day for evaluation of her anemia and irregular bowel movements as well. She has been given the below instructions regarding adjustment of her medications for the procedure. Full consent has been obtained from her for both procedures, including risks of bleeding and perforation. The procedures will be done with monitored anesthesia care. In regard to the irregular bowel movements I did recommend trials of Metamucil and/or MiraLAX to see if that can give her some relief. I shall also check celiac disease labs both in regard to the anemia and the irregular bowel movements. Perla was comfortable with this plan. Thank you again for allowing me to participate in Perla's care. I shall continue to keep you advised of her progress. 01/08/2025 Irregular bowel habits (ICD-10 - R19.8) Take 1 or 2 Metamucil fiber pills with a lot of water once or twice a day for the constipation. You can also take some Miralax as needed for the constipation Overall, Perla appears well and is not having any particularly worrisome GI complaints. However, in regard to her anemia we did review that this could very well be in relation to some iron malabsorption in relation to her bariatric gastric sleeve surgery. I did advise her to continue the iron twice a day and I shall repeat the below laboratories to see if there has been any improvement since the studies in November. I did recommend an upper endoscopy with duodenal biopsies to assess for celiac disease for evaluation both for the anemia and her chronic reflux with reported Horton's esophagus. I have also recommended a colonoscopy on the same day for evaluation of her anemia and irregular bowel movements as well. She has been given the below instructions regarding adjustment of her medications for the procedure. Full consent has been obtained from her for both procedures, including risks of bleeding and perforation. The procedures will be done with monitored anesthesia care. In regard to the irregular bowel movements I did recommend trials of Metamucil and/or MiraLAX to see if that can give her some relief. I shall also check celiac disease labs both in regard to the anemia and the irregular bowel movements. Perla was comfortable with this plan. Thank you again for allowing me to participate in Perla's care. I shall continue to keep you advised of her progress. Plan Of Treatment Treatment Notes Assessment Notes GERD (gastroesophageal reflux disease) C ontimnue the omeprazole once or twice every day Irregular bowel habits Take 1 or 2 Metam ucil fiber pills with a lot of water once or twice a day for the constipation. You can also take some Miralax as needed for the constipation Pending Test Test Name Order Date UPPER GI ENDOSCOPY 01/08/2025 COLONOSCOPY 01/08/2025 IRON + IBC (FE) 01/08/2025 CBC w DIFF 01/08/2025 Ferritin 01/08/2025 Celiac Disease Panel 01/08/2025 Next Appt Details Provider Name:Al David , 03/08/2025 02:40:00 PM, [address] [place] [address], [id number], Progress Notes * PERLA WARNERDOB:1980 (44 yo F)Acc No.[id number]:01/08/2025 Progress Notes Patient: PERLA MATSON Provider: Joe David MD :1980 A ge:44 Y S ex:Female Date:01/08/2025 Address:[address] [place] [address] Pcp:Omer Whitney MD Subjective: * Chief Complaints: * 1 . Patient presents today for anemia. * HPI: i ncontinence: I saw Perla in consultation today in regard to further evaluation of her iron deficiency anemia, chronic gastroesophageal reflux with reported Horton's esophagus, and irregular bowel movements. As you know, Perla is a 44-year-old female who underwent a sleeve gastrectomy bariatric surgery in December 2023 at [facility] with Dr. Farfan. She did lose a total of about 60 or 70 pounds with preoperative dieting and with the subsequent postoperative weight loss. She describes that her weight has leveled off where it is now currently at 212 pounds. She has developed anemia postoperatively which she says is new for her. She does have a normal menses by her description. Her most recent studies on November 17, 2024 showed hemoglobin of 10.2, MCV 75, normal chemistries and renal function, normal LFTs, iron of 10, iron saturation 2%, ferritin of 5, B12 of 310, folate 5.0, and a TSH of 1.1. In November 2023 her hemoglobin was 11.9 with a normal MCV. She has been on a couple of courses of iron supplements and most recently has been back on them for about 2 months. She describes chronic heartburn and reflux since her surgery. However, she describes possibly previous upper endoscopies and according to your note she has a history of Horton's esophagus. An upper endoscopy done at the time of her gastric bypass surgery is described as unremarkable. She is presently using omeprazole twice a day with generally good relief of the reflux symptoms. She describes occasional dysphagia to solid food. She denies any nausea, vomiting, abdominal pain, jaundice, hematochezia, nor melena. She does describe that her bowel movements are somewhat irregular ranging from some loose stool to several days at a time without a bowel movement. She has never had a colonoscopy. She denies any known family history of colorectal cancer, inflammatory bowel disease, or celiac disease, although she does report that she really does not know much in the way of her family history in general. She does take Excedrin migraine with aspirin a couple of times a week. She does not take any other NSAIDs. She does not smoke and uses only occasional alcohol. * Medical History: I jordan def. anemia---since the gastric sleeve bariatric surgery in December 2023, Asthma, Denies [place],DM,CVA,renal disease, GERD--reported hx of Horton's-Upper endoscopy during her bariatric surgery in 2023 is described as normal, Seizures. * Surgical History: B ariatric surgery--[facility]-12/2023--Sleeve gastrectomy at [facility] with Dr. Farfan 11/14/23, Tonsilectomy , Adenoidectomy , Bilateral salpingectomy . * Family History: F ather: unknown. M other: alive, diagnosed with HTN (hypertension). patient has unknown family history. * Social History: T obacco Use: T obacco Control (Standard) T obacco use: N onsmoker. M iscellaneous: M arital status: single. Occupation: Works part-time at [employer]. D rug/Alcohol: A [place]-C (Standard) D id you have a drink containing alcohol in the past year? Y es,?How often did you have a drink containing alcohol in the past year? M onthly or less (1 point), H ow many drinks did you have on a typical day when you were drinking in the past year? 1 or 2 drinks (0 point), H ow often did you have six or more drinks on one occasion in the past year? N ever (0 point), P oints 1 , I nterpretation N egative. N onsmoker; no sig alcohol. * Medications: T aking Omeprazole 20 MG Capsule Delayed Release 1 Orally twice a day , Taking Vitamin A 1500 MCG/ML Liquid 1 mL Orally Once a day , Taking Thiamine HCl 100 MG Tablet 1 tablet Orally Once a day , Taking Symbicort 160-4.5 MCG/ACT Aerosol as directed Inhalation , Taking Albuterol Sulfate HFA 108 (90 Base) MCG/ACT Aerosol Solution 1 puff as needed Inhalation every 4 hrs , Taking Iron 325 (65 Fe) MG Tablet 1 tablet Orally Three times a Week , Taking Heartburn Relief 10 MG Tablet 1 tablet as needed Orally Twice a day , Medication List reviewed and reconciled with the patient * Allergies: P enicillin. Objective: * Vitals: W t:212.4lbs, Ht:64in, BMI:36.45Index, BP:001/01mm Hg, Temp:98.4, Ht-cm: 162.56, Wt-k.34. Assessment: * Assessment: 1. G ERD (gastroesophageal reflux disease) - K21.9 (Primary) 2 . I jordan deficiency anemia - D50.9 3 . I rregular bowel habits - R19.8 Overall, Perla appears wel l and is not having any particularly worrisome GI complaints. However, in regard to her anemia we did review that this could very well be in relation to some iron malabsorption in relation to her bariatric gastric sleeve surgery. I did advise her to continue the iron twice a day and I shall repeat the below laboratories to see if there has been any improvement since the studies in November. I did recommend an upper endoscopy with duodenal biopsies to assess for celiac disease for evaluation both for the anemia and her chronic reflux with reported Horton's esophagus. I have also recommended a colonoscopy on the same day for evaluation of her anemia and irregular bowel movements as well. She has been given the below instructions regarding adjustment of her medications for the procedure. Full consent has been obtained from her for both procedures, including risks of bleeding and perforation. The procedures will be done with monitored anesthesia care. In regard to the irregular bowel movements I did recommend trials of Metamucil and/or MiraLAX to see if that can give her some relief. I shall also check celiac disease labs both in regard to the anemia and the irregular bowel movements. Perla was comfortable with this plan. Thank you again for allowing me to participate in Perla's care. I shall continue to keep you advised of her progress. Plan: * Treatment: Notes: Contimnue the omeprazole once or twice every day??2.?Iron deficiency anemia?LAB: IRON + IBC (FE) ?LAB: CBC w DIFF ?LAB: Ferritin (Collection Date & Time - 01/08/2025 03:15 PM)* Value Reference Range F erritin 5 L 10-250 - ng/mL ?LAB: Celiac Disease Panel ?LAB: Vitamin B12 and Folate (Collection Date & Time - 01/08/2025 03:15 PM) * Value Reference Range V itamin B12 272 200-900 - pg/mL * F olate 6.1 > or = 4.0 - ng/mL ?Procedure: COLONOSCOPY* With MAC Take 2 Dulcolax pil ls 2 days before the procedures.sched for 03/08/25 at 2:40 pmmiralax 3.?Irregular bowel habits?LAB: IRON + IBC (FE) ?LAB: CBC w DIFF ?LAB: Ferritin (Collection Date & Time - 01/08/2025 03:15 PM)* Value Reference Range F erritin 5 L 10-250 - ng/mL ?LAB: Celiac Disease Panel ?LAB: Vitamin B12 and Folate (Collection Date & Time - 01/08/2025 03:15 PM) * Value Reference Range V itamin B12 272 200-900 - pg/mL * F olate 6.1 > or = 4.0 - ng/mL ?Procedure: COLONOSCOPY* With MAC Take 2 Dulcolax pil ls 2 days before the procedures.sched for 03/08/25 at 2:40 pmmiralax Notes: Take 1 or 2 Metamucil fiber pills with a lot of water once or twice a day for the constipation. You can also take some Miralax as needed for the constipation?? * Procedure Codes: 4 3235 UPPR GI ENDOSCOPY, DIAGNOSIS, 56937 DIAGNOSTIC COLONOSCOPY * Preventive Medicine: Counseling: C are goal follow-up plan: A franck Normal BMI Follow-up D ietary management education, guidance, and counseling, B WA management provided Y es. * * The named appointment provid er may or may not be the originator of this progress note, and it is not deemed complete until electronically signed by the appointment provider. Sign off status: Pending * Provider: Joe David MD Date: 01/08/2025 Generated for Padmaja march/Emilie/Victorinaitting on: 01/18/2025 03:06 PM EDT History and Physical Notes * HPI (History of Present Illness) Category Sub-Category Detail Notes Category Not es incontinence I saw Perla in consultation today in regard to further evaluation of her iron deficiency anemia, chronic gastroesophageal reflux with reported Horton's esophagus, and irregular bowel movements. As you know, Perla is a 44-year-old female who underwent a sleeve gastrectomy bariatric surgery in December 2023 at [facility] with Dr. Farfan. She did lose a total of about 60 or 70 pounds with preoperative dieting and with the subsequent postoperative weight loss. She describes that her weight has leveled off where it is now currently at 212 pounds. She has developed anemia postoperatively which she says is new for her. She does have a normal menses by her description. Her most recent studies on November 17, 2024 showed hemoglobin of 10.2, MCV 75, normal chemistries and renal function, normal LFTs, iron of 10, iron saturation 2%, ferritin of 5, B12 of 310, folate 5.0, and a TSH of 1.1. In November 2023 her hemoglobin was 11.9 with a normal MCV. She has been on a couple of courses of iron supplements and most recently has been back on them for about 2 months. She describes chronic heartburn and reflux since her surgery. However, she describes possibly previous upper endoscopies and according to your note she has a history of Horton's esophagus. An upper endoscopy done at the time of her gastric bypass surgery is described as unremarkable. She is presently using omeprazole twice a day with generally good relief of the reflux symptoms. She describes occasional dysphagia to solid food. She denies any nausea, vomiting, abdominal pain, jaundice, hematochezia, nor melena. She does describe that her bowel movements are somewhat irregular ranging from some loose stool to several days at a time without a bowel movement. She has never had a colonoscopy. She denies any known family history of colorectal cancer, inflammatory bowel disease, or celiac disease, although she does report that she really does not know much in the way of her family history in general. She does take Excedrin migraine with aspirin a couple of times a week. She does not take any other NSAIDs. She does not smoke and uses only occasional alcohol.
--- OUTSIDE RECORDS SUMMARY | 2025-01-18 15:07 | XMS_ITS | Patient Health Record ---
Author Organization [facility] Sofy henrry [place] Address [address] [facility] [place] [address] Care Team Providers Care Dog Behaviorist Name Role Phone Ted Perry MD Primary Care Provider Unavaila Mumtaz Jerome Unavailable [phone] Allergies Allergen (clinical drug ingredient) Drug/Non Drug [...] Neuritis (729.2) Active confirmed Problem Hammer toe (937311687) Hammer toe (735.4) Active confirmed Problem Ingrowing nail (775628826) Ingrowing Nail (703.0) Active confirmed Resolved Plan Of Treatment Pending Test Test Name Order Date [id number] Plate 12/15/2014 Insurance Providers Payer Name Payer Address Payer Phone Subscriber Number Group Number Insured Name Patient Relationship to Insured Coverage Start Date Coverage End Date Medicare National Govt Sv[employer] [address] [place] [address] [id number] Meera Kidd Self - patient is the insured Medical (General) History Medical History History ICD Code Anemia asthma Back,Hip,and Knee pain Chicken pox Depression Headaches Joint implants/screws Surgical History Surgery Date(Month/Year) Laproscopic Ovarian Surgery Foot Surgery
--- OUTSIDE RECORDS SUMMARY | 2025-01-18 15:07 | XMS_ITS | Patient Health Record ---
Author Organization [facility] Address [address] [place] [address] Care Team Providers Care Instructor Wastewater Treatment Plant Name Role Phone Dev[facility] NICO[facility], [facility] Primary Care Provider Al Morrow [phone] Allergies Allergen (clinical drug ingredient) Drug/Non Drug Allergy documented on EMR Reaction Allergy Type Onset Date Status Penicillin Unknown Drug Allergy Active Results Component Value Reference Range Notes Ferritin (Not yet reviewed b y provider) Interpretation: Performing Lab:[address] [phone] Notes/Report: Ferritin 5 10-250 ng/mL Vitamin B12 and Folate Reviewed date:01/14/2025 06:44:01 PM Interpretation: Performing Lab:[facility], [address] [place] [phone] Notes/Report: Vitamin B12 272 200-900 pg/mL NORMAL 200-900 PG/ML INDETERMINATE 160-199 PG/ML DEFICIENT < 160 PG/ML Folate 6.1 > or = 4.0 ng/mL Reference Values: > or = 4.0 ng/mL < 4.0 ng/mL suggests folate deficiency Methotrexate, aminopterin and folinic acid (leucovorin) are chemotherapeutic agents whose molecular structures are similar to folate; therefore, the Heat Treat Operator folate assay cannot be used for patients using these drugs. Complete Blood Count Auto Di ff (Not yet reviewed by provider) Interpretation: Performing Lab:[address] [phone] Notes/Report: White Blood Count 4.8 4.8-10.8 X10*3/uL Red Blood Count 4.46 4.20-5.50 X10*6/uL Hemoglobin 9.7 12.0-16.0 g/dl Hematocrit 33.0 37.0-47.0 % Mean Corpuscular Volume 74.0 80.0-98.0 fL Mean Corpuscular Hemoglobin 21.7 27.0-33.0 pg Mean Corpuscular HGB Conc 29.4 31.0-35.0 g/dl Red Cell Distribution Width 16.4 11.0-16.0 % Platelet Count 231 160-400 X10*3/uL Mean Platelet Volume 10.7 9.4-12.3 fL Neutrophils Percent Auto 50.9 45-73 % Imm Gran Pct Auto 0.2 0.0-0.4 % Lymphocytes Percent Auto 35.5 20-40 % Monocytes Percent Auto 11.3 2-11 % Eosinophils Percent Auto 1.3 0-4 % Basophils Percent Auto 0.8 0-2 % NRBC Pct Auto 0.0 0.0-0.2 /100WBC Neutrophils Absolute Auto 2.4 2.0-8.3 x10*3/u L Imm Gran Abs Auto 0.01 0.00-0.03 X10*3/uL Lymphocytes Absolute Auto 1.7 1.2-4.9 X10*3/u L Monocytes Absolute Auto 0.5 0.1-1.2 X10*3/uL Eosinophils Absolute Auto 0.1 0.0-0.4 X10*3/u L Basophils Absolute Auto 0.0 0.0-0.2 X10*3/uL NRBC Abs Auto 0.000 0.0-0.012 X10*3/uL IRON PROFILE (Not yet revie wed by provider) Interpretation: Performing Lab:[facility], [address] [place] [phone] Notes/Report: Iron 17 30-160 mcg/dL Total Iron Binding Capacity 465 228-428 mcg/d L Percent Iron Saturation 4 15-50 % Unsaturated Iron Binding 448 Transglutaminase IgA Reviewed date:01/14/2025 06:43:17 PM Interpretation: Performing Lab:[facility], [address] [place] [phone] Notes/Report: Transglutaminase IgA <1.0 Value Interpretation ----- <15.0 Antibody not detected > or = 15.0 Antibody detected THIS TEST WAS PERFORMED AT: [facility] [address] [place] [phone] KISHORE MELO MD Gliadin Ab Panel Reviewed date:01/14/2025 06:43:06 PM Interpretation: Performing Lab:[facility], [address] [place] [phone] Notes/Report: Gliadin Deamidated IgA Ab <1.0 Value Interpretation ----- <15.0 Antibody not detected > or = 15.0 Antibody detected Gliadin Deamidated IgG Ab <1.0 Value Interpretation ----- <15.0 Antibody not detected > or = 15.0 Antibody detected THIS TEST WAS PERFORMED AT: [facility] [address] [place] [phone] KISHORE MELO MD Reason For Referral No Information Medications Medication [...] Status Risk Notes Problem Iron deficiency anemia (63802556) Iron deficiency anemia (D50.9) Active confirmed Problem Irregular bowel habits (139371503) Irregular bowel habits (R19.8) Active confirmed Problem Gastroesophageal reflux disease (217130313) GERD (gastroesophag eal reflux disease) (K21.9) Active [...] N/A Encounters Encounter Location Date Provider Diagnosis [facility] [address] [place] [phone] 01/08/2025 Al David GERD (gastroesophageal reflux disease) K21.9 ; Iron deficiency anemia D50.9 and Irregular bowel habits R19.8 [facility] [address] [place] [phone] 01/08/2025 Al David Assessments Encounter Date Diagnosis (ICD Code) Assessment [...] IBC (FE) 01/08/2025 CBC w DIFF 01/08/2025 Complete Blood Count Auto Diff IRON PROFILE 01/08/2025 Ferritin 01/08/2025 Celiac Disease Panel 01/08/2025 Next Appt Details Provider Name:Al David , 03/08/2025 02:40:00 PM, [address] [place] [address] , [place], [place], [id number], Insurance Providers Payer Name Payer Address Payer Phone Subscriber Number Group Number Insured Name Patient Relationship to Insured Coverage Start Date Coverage End Date [facility] [address] [address] [place], [place] [id number] PERLA WARNER Self - patient is the insured Medical (General) History Medical History History ICD Code Iron def. anemia---since the gastric sle kalpana bariatric surgery in December 2023 Asthma Denies LA,DM,CVA,renal disease GERD--reported hx of Horton 's-Upper endoscopy during her bariatric surgery in 2023 is described as normal Seizures Surgical History Surgery Date(Month/Year) Bilateral salpingectomy Adenoidectomy Tonsilectomy Bariatric surgery--[facility]- 4--Sleeve gastrectomy at [facility] with Dr. Farfan 11/14/23
--- OUTSIDE RECORDS SUMMARY | 2025-01-18 15:07 | XMS_ITS | Clinical Summary ---
Author Organization [facility] Address [address] [place] [address] Phone Care Team Providers Care Data Coder Operator Name Role Phone Ted Perry MD Primary Care Provider [phone] Social History Tobacco Use Types Packs/Day Years [...] 06/04/2023 Social Influencers of Health Screening 06/04/2023 Depression Screening 05/06/2024 COVID-19 Vaccine ( - 2023-2 5 season) 2025 Influenza Vaccine (#1) 2025 HIB Vaccines Aged [...] patient's age to complete this topic Insurance [facility] [employer] [facility] Care Teams Data Coder Operator Relationship Specialty Start Date End Date Ted Perry MD [address] [place] [address] Dr Marcel [place] PCP - General Internal Medicine 03/31/24
[2025-03-04 15:06] VITALS: BMI 36.4
[2025-03-08 11:55] VITALS: BMI 35.4
--- NOTE | 2025-03-08 12:01 | PC.NURSE ---
ok to take a lyft home. 18 year old son at home waiting for her.
[2025-03-08 12:02] VITALS: BP 116/56; PULSE 65; RESP 16; TEMP 36.1; O2SAT 96
[2025-03-08] MEDS: Lactated Ringers 1,000 ML 100 ML IVCONT (12:12)
--- NOTE | 2025-03-08 12:16 | HO.ANESPROP2 ---
Documented by User: Karyn Hernandez NP 03/03/25 14:36 HPI - Anesthesia Eval Consult details Narrative: 44 yr old female for Upper Endoscopy and Colonoscopy Iron def anemia after gastric bypass surgery Follows [facility] pulmo for asthma mgt PMFSH Active Problems Active Problems: All Active Problems History of bariatric surgery (Acute) Asthma, moderate persistent (Acute) Heartburn (Acute) Microcytic anemia (Acute) Environmental allergies (Acute) Ex-smoker (Acute) Chronic cough (Acute) Iron deficiency anemia (Acute) Cough (Acute) Annual physical exam (Acute) Well woman exam (no gynecological exam) (Acute) S/P laparoscopic sleeve gastrectomy (Acute) Congenital intra-abdominal adhesions (Acute) Intra-abdominal adhesions (Acute) Steatosis, liver (Acute) Horton's 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 (Acute) Dysthymia (Acute) Vitamin B1 deficiency (Acute) Vitamin A deficiency (Acute) Vitamin D deficiency (Acute) Iron deficiency (Acute) Breast cancer screening (Acute) Mary infection of genital region (Acute) Hx of gestational diabetes mellitus, not currently (Acute) Screen for sexually transmitted diseases (Acute) Cervical cancer screening (Acute) Lumbar radiculopathy (Acute) LFT elevation (Acute) Encounter for general adult medical examination with abnormal findings (Acute) Skin growth (Acute) Encounter for routine gynecological examination (Acute) Shortness of breath (Acute) Obesity due to excess calories (Acute) Encounter to establish care with new doctor (Acute) Lumbar pain (Acute) Knee pain, left (Acute) Upper respiratory tract infection (Acute) Knee pain (Acute) Back pain (Acute) Asthma (Acute) GERD (gastroesophageal reflux disease) (Acute) Morbid obesity (Acute) Hx of bilateral salpingectomy (Acute) Past Medical History Medical History (Updated 03/04/25 @ 15:02 by Aysha Dodd RN) Anemia Knee pain Back pain Asthma GERD (gastroesophageal reflux disease) Morbid obesity History of seizure Family History Family History Maternal Grandfather Brain cancer Lung cancer Maternal Grandmother Lung cancer Family history of problems with anesthesia: Yes Surgical History Surgical History (Updated 11/24/24 @ 15:15 by Omer Whitney MD) Hx of laparoscopic partial gastrectomy Hx of laparoscopy History of esophagogastroduodenoscopy (EGD) History of tonsillectomy and adenoidectomy Hx of bilateral salpingectomy History of Problems with Anesthesia: No Social History Social History Household Members: Family Household Members Other:: minor children Housing: House Are you a primary certified social workers in health care to a significant other at home: Yes (minor children) Do you presently have visiting nurse or other home services: No Alcohol intake: current Alcohol intake frequency: holidays/special occasions only Patient Tobacco Use Status: Former Tobacco user Tobacco use type: Cigarette Cigarette Packs Per Day: 1 Cigarettes Per Day: 20 Years Smoked: Quit July 2022 e-Cigarette/Vaping Use: Never Used Use of substances other than those prescribed or required for medical reasons: No Are you DNR?: No Advance Directives: No Advance Directives Information Provided: Yes Patient : No (tubal ligation) : No service: No Current occupational status: unemployed Cognitive needs: No Hearing needs: No Vision needs: No Meds Allergies Allergy/AdvReac Type Severity Reaction Status Date / Time Penicillins (PENICILLINS) Allergy Unknown BLACKED OUT Verified 11/24/24 13:34 Exam Pertinent Lab Results Pertinent Lab Results: Laboratory Tests 11/17/24 01/08/25 13:22 15:15 WBC 4.8 RBC 4.46 Hgb 9.7 L Hct 33.0 L Plt Count 231 D Sodium 144 Potassium 4.2 BUN 9 Creatinine 0.58 Assessment and Plan Final Anesthetic Review Family History of Problems with Anesthesia: Yes History of Problems with Anesthesia: No Documented by User: Lisa Mota DO 03/08/25 12:17 [facility] Past Medical History Medical History (Updated 03/04/25 @ 15:02 by Aysha Dodd RN) Anemia Knee pain Back pain Asthma GERD (gastroesophageal reflux disease) Morbid obesity History of seizure Family History Family History Maternal Grandfather Brain cancer Lung cancer Maternal Grandmother Lung cancer Family history of problems with anesthesia: No Surgical History Surgical History (Updated 11/24/24 @ 15:15 by Omer Whitney MD) Hx of laparoscopic partial gastrectomy Hx of laparoscopy History of esophagogastroduodenoscopy (EGD) History of tonsillectomy and adenoidectomy Hx of bilateral salpingectomy History of Problems with Anesthesia: No Social History Social History Household Members: Family Household Members Other:: minor children Housing: House Are you a primary certified social workers in health care to a significant other at home: Yes (minor children) Do you presently have visiting nurse or other home services: No Alcohol intake: current Alcohol intake frequency: holidays/special occasions only Patient Tobacco Use Status: Former Tobacco user Tobacco use type: Cigarette Cigarette Packs Per Day: 1 Cigarettes Per Day: 20 Years Smoked: Quit July 2022 e-Cigarette/Vaping Use: Never Used Use of substances other than those prescribed or required for medical reasons: No Are you DNR?: No Advance Directives: No Advance Directives Information Provided: Yes Patient : No (tubal ligation) : No service: No Current occupational status: unemployed Cognitive needs: No Hearing needs: No Vision needs: No Meds Allergies Allergy/AdvReac Type Severity Reaction Status Date / Time Penicillins (PENICILLINS) Allergy Unknown BLACKED OUT Verified 11/24/24 13:34 Exam Exam Date and Time: 03/08/25 1215 Height,Weight and Vital Signs: Height 5 ft 4 in Weight 93.5 kg Vital Signs Temperature 97.0 F 03/08/25 12:02 Pulse Rate 65 03/08/25 12:02 Respiratory Rate 16 03/08/25 12:02 Blood Pressure 116/56 L 03/08/25 12:02 Pulse Oximetry 96 03/08/25 12:02 Oxygen Delivery Method Room Air 03/08/25 12:02 Temperature 97.0 F 03/08/25 12:02 Pulse Rate 65 03/08/25 12:02 Respiratory Rate 16 03/08/25 12:02 Blood Pressure 116/56 L 03/08/25 12:02 Pulse Oximetry 96 03/08/25 12:02 Oxygen Delivery Method Room Air 03/08/25 12:02 Airway Mallampati Class: I TM Dist: >3cm Neck ROM: Full Denture: Upper Heart: S1S2 Lungs: CTAB Assessment and Plan Assessment Anesthesia Assessment: Anesthesia Plan Discussed and Chart Reviewed Final Anesthetic Review Family History of Problems with Anesthesia: No History of Problems with Anesthesia: No NPO: Yes ASA Class: II Final Preanesthetic Review: No Changes in Pt Med Stat, Meds/Allgs Chart Reviewed, Consent Obtained/Reviewed and Anes Risks/Benef Reviewed Patient Risk: Low Procedure Risk: Low Anesthetic Plan Anesthetic Plan: MAC: and Agree w/ Assess. and Plan Disposition: Standard PACU
[2025-03-08 13:30] VITALS: BP 107/58; PULSE 59; RESP 16; TEMP 35.9; O2SAT 98
--- NOTE | 2025-03-08 13:39 | PM.OP ---
Brief Operative Note Date of Service: 03/08/25 Pre-op diagnosis: GERD, Horton's, Anemia Post-op diagnosis: other (Same, Hiatal hernia, Colon polyp) Procedure: EGD with bx, Colonoscopy to the cecum and TI with cold snare polypectomy Surgeon: Al David MD Anesthesia: MAC Was an Diamond Merchant used for this Procedure?: No Estimated blood loss (mL): 2.0 Pathology: other (A. 2nd/3rd portions of duodenum B. EG Junction at 35cm C. Gastric antrum D. Polyp at 30cm) Condition: stable Disposition: PACU
[2025-03-08 13:42] VITALS: BP 108/53; PULSE 55; RESP 16; O2SAT 99
[2025-03-08 13:51] VITALS: BP 99/58; PULSE 51; RESP 18; TEMP 36.2; O2SAT 99
--- NOTE | 2025-03-08 22:41 | OP_ITS ---
DATE OF SERVICE: 03/08/2025 SURGEON: Al David MD INDICATIONS: The patient presents for evaluation of GERD, reported history of Horton's esophagus, and iron deficiency anemia. Full consent has been obtained from her for this, including risks of bleeding and perforation. PREOPERATIVE DIAGNOSIS: POSTOPERATIVE DIAGNOSIS: PROCEDURE PERFORMED: ESTIMATED BLOOD LOSS: COMPLICATIONS: ANESTHESIA: Monitored anesthesia care. ASSISTANTS: SPECIMENS: PREOPERATIVE DIAGNOSES: Gastroesophageal reflux, reported Horton's esophagus, iron deficiency anemia. POSTOPERATIVE DIAGNOSES: Gastroesophageal reflux, reported Horton's esophagus, iron deficiency anemia, hiatal hernia, rule out celiac disease, mild gastritis, colon polyp, internal hemorrhoids. PROCEDURES PERFORMED: Esophagogastroduodenoscopy with biopsies, and colonoscopy to the cecum and terminal ileum with cold snare polypectomy. DESCRIPTION OF PROCEDURE: The patient was placed in the left lateral decubitus position. The Olympus video gastroscope was passed in the posterior oropharynx and upper esophagus under direct vision. The scope was passed slowly into the distal esophagus. The gastroesophageal junction appeared at 35 cm. There was some slight irregularity consistent with reflux and probably small, less than 1 cm areas of Horton's mucosa, but there was no esophagitis nor any lesions. The scope entered the stomach. There was a small to moderate-sized hiatal hernia. The scope was advanced to the pylorus, and the duodenum was cannulated to the descending portion. The duodenum including the bulb appeared normal without mass or ulceration. Biopsies were obtained from the 2nd and 3rd portions of duodenum. The scope withdrawn back in the stomach. The gastric antrum had some mild areas of erythema, but no evidence of any erosions or ulceration. There was good peristalsis. Biopsies were obtained from the antrum. The scope was retroflexed visualizing the proximal stomach carefully, which appeared normal, without any sign of mass or ulceration. The scope was straightened. The proximal stomach had changes consistent with her sleeve gastrectomy with some relative narrowing but no sign of any stricture. The mucosa appeared normal. The scope was withdrawn back to the esophagus. Biopsies were obtained at the EG junction at 35 cm. Proximal to this, the esophageal mucosa appeared normal. The scope was withdrawn from the patient. She was turned around for the colonoscopy. The digital rectal exam revealed no abnormalities. The Olympus video pediatric colonoscope was entered into the rectum and advanced easily to the cecum. Once in the cecum, I did identify cecal pouch with a normal-appearing ileocecal valve and appendiceal orifice. The terminal ileum was cannulated and appeared normal. The scope withdrawn back in the colon. The entire cecum and ileocecal valve appeared normal. The scope was then slowly withdrawn assessing all mucosal surfaces carefully. Preparation throughout the colon was good but did require some irrigation. At 30 cm was an approximately 5 or 6 mm polyp, which was removed by cold snare polypectomy and recovered by suction. The polypectomy site appeared clean, without any sign of residual polyp nor any significant bleeding. I did not visualize any other polyps, colitis, nor angiodysplasia. There was no significant diverticulosis. In the rectum, scope was retroflexed visualizing some internal hemorrhoids, but no other pathology. The rectal mucosa appeared normal. Scope was straightened and withdrawn from the patient. She tolerated both procedures well and was returned to the recovery area in stable condition. IMPRESSION: 1. Hiatal hernia, history of Horton's esophagus. 2. Rule out celiac disease. 3. Rule out gastritis. 4. Colon polyp. 5. Internal hemorrhoids. PLAN: The results of the pathology will be checked. She has been advised to continue her daily omeprazole and iron. She was advised not to use any aspirin nor NSAIDs for at least a week. If the colon polyp is a tubular adenoma, I would recommend a followup coloscopy in 5 years. If it is only hyperplastic, I would recommend a followup colonoscopy by age 52. She will be seen for a followup visit as well. ADDENDUM: Of note, a Cypher study was sent on her biopsies from the gastroesophageal junction in regard to the Horton's esophagus. MD CAYLA Garcia/PATRICIA / [id number] CLARISSA
== END 2025-03-08 14:11 | disposition home or self-care (01) ==
PROVIDERS: PCP Internal Medicine; Visit Provider Internal Medicine
PROC: (CPT 45385; principal; 2025-03-08 13:40)
DX: D50.9 Iron deficiency anemia, unspecified (principal); R19.4 Change in bowel habit; K63.5 Polyp of colon; K64.8 Other hemorrhoids; R10.9 Unspecified abdominal pain; K21.9 Gastro-esophageal reflux disease without esophagitis; K22.70 Barrett's esophagus without dysplasia; K29.60 Other gastritis without bleeding; K44.9 Diaphragmatic hernia without obstruction or gangrene; R56.9 Unspecified convulsions; J45.909 Unspecified asthma, uncomplicated; Z79.51 Long term (current) use of inhaled steroids; Z79.899 Other long term (current) drug therapy; Z88.0 Allergy status to penicillin; Z98.84 Bariatric surgery status; Z98.890 Other specified postprocedural states
CPT/HCPCS: 45385; 43239; 88305; 88313; 88342; J2003; J2704